=== PATIENT | male | born 1945 ===

== ENCOUNTER 2021-05-06 10:33 | Outpatient (REF) | payer MEDICARE, SELFPAY ==
[2021-05-06 10:45] LABS: MANUAL DIFF FLAG NO
[2021-05-06 11:14] LABS: Basophils Absolute Auto 0.1 X10*3/uL (0.0-0.2); Basophils Percent Auto 1.6 % (0-2); Eosinophils Absolute Auto 0.3 X10*3/uL (0.0-0.4); Eosinophils Percent Auto 3.9 % (0-4); Hematocrit 35.5 % (42-52); Hemoglobin 12.2 g/dl (14.0-18.0); Imm Gran Abs Auto 0.03 X10*3/uL (0.00-0.03); Imm Gran Pct Auto 0.4 % (0.0-0.4); Lymphocytes Absolute Auto 1.4 X10*3/uL (1.2-4.9); Lymphocytes Percent Auto 17.2 % (20-40); Mean Corpuscular HGB Conc 34.4 g/dl (31.0-36.0); Mean Corpuscular Hemoglobin 34.3 pg (27.0-33.0); Mean Corpuscular Volume 99.7 fL (80-98); Mean Platelet Volume 11.3 fL (9.4-12.4); Monocytes Absolute Auto 0.7 X10*3/uL (0.1-1.2); Neutrophils Absolute Auto 5.4 X10*3/uL (2.0-8.3); Neutrophils Percent Auto 67.9 % (45-73); Platelet Count 214 X10*3/uL (160-400); Red Blood Count 3.56 X10*6/uL (4.60-5.80); White Blood Count 7.9 X10*3/uL (4.8-10.8)
[2021-05-06 11:52] LABS: Alanine Aminotransferase 10 U/L (0-40); Albumin Level 3.8 g/dL (3.5-5.0); Alkaline Phosphatase 90 U/L (39-117); Anion Gap 13 (12-20); Aspartate Amino Transferase 12 U/L (5-37); Bilirubin Total 0.3 mg/dL (0.0-1.0); Blood Urea Nitrogen 12 mg/dL (9-16); Carbon Dioxide 24 mmol/L (22-29); Chloride 109 mmol/L (96-108); Cholesterol 150 mg/dL; Estimated Glomerular Filt Rate > 60; Glucose Fasting 167 mg/dL (60-99); HDL Cholesterol 47 mg/dL; LDL Cholesterol Calculated 74 mg/dl; Sodium 142 mmol/L (135-145); Triglycerides 146 mg/dL
[2021-05-06 12:25] LABS: Creatinine Urine 93.73 mg/dL
[2021-05-06 12:40] LABS: Microalbum/Creatinine Ratio Ur 807.6 ug/mg cr
[2021-05-10 13:02] LABS: Vitamin D 25-OH, D2 <4 ng/mL; Vitamin D 25-OH, D3 36 ng/mL; Vitamin D 25-OH, Total 36 ng/mL (30-100)
== END 2021-05-06 10:34 | disposition home or self-care (01) ==
LOC: HO.LAB 10:33
PROVIDERS: PCP Internal Medicine; Visit Provider Internal Medicine
DX: D64.9 Anemia, unspecified (principal); M51.36 Other intervertebral disc degeneration, lumbar region; E11.9 Type 2 diabetes mellitus without complications; E78.5 Hyperlipidemia, unspecified; E55.9 Vitamin D deficiency, unspecified
CPT/HCPCS: 36415; 80053; 80061; 82043; 82306; 85025

== ENCOUNTER 2021-05-21 15:19 | Outpatient (REF) | payer MEDICARE, SELFPAY ==
--- NOTE | ~2021-05-21 | XR_ITS ---
EXAMINATION: XR CHEST CLINICAL INFORMATION: Dyspnea. COMPARISON: None TECHNIQUE: 2 views of the chest were obtained. FINDINGS: There is mild central pulmonary vascular prominence. Hazy opacity lung bases may be due to early pulmonary edema versus inflammatory/infectious etiology. No large pleural effusion. Heart size is normal. Cardiac mediastinal contours normal. Multilevel degenerative spondylosis of the spine. XR/XR chest 2V IMPRESSION: Mild central pulmonary vascular prominence. Hazy opacities lung bases due to early pulmonary edema versus inflammatory/infectious etiology.
== END 2021-05-21 15:20 | disposition home or self-care (01) ==
LOC: HO.XRAY 15:19
PROVIDERS: PCP Internal Medicine; Visit Provider Internal Medicine
DX: R06.09 Other forms of dyspnea (principal); U09.9 Post COVID-19 condition, unspecified; Z99.81 Dependence on supplemental oxygen
CPT/HCPCS: 71046; 99202

== ENCOUNTER → 2021-06-05 15:51 | Outpatient (BNVA) | payer MEDICARE, MEDICAID, SELFPAY | PROVIDERS: PCP Internal Medicine; Visit Provider Internal Medicine | DX: R06.09 Other forms of dyspnea (principal); U09.9 Post COVID-19 condition, unspecified; Z99.81 Dependence on supplemental oxygen | CPT/HCPCS: 99212 ==

== ENCOUNTER 2024-01-12 15:26 | Outpatient (AMB) | payer OTHER, SELFPAY ==
[2024-01-12 15:49] VITALS: BP 136/84; BMI 28.2
--- NOTE | 2024-01-12 15:49 | A.OFFPC_ITS ---
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 Required: No Accompanied by: Spouse/ Grand Child Allergies cortisone Adverse Reaction (Intermediate, Verified 01/12/24 16:14) Cough Medication List - Last Reconciled 01/12/24 by Gaby Tamayo MD Advair Diskus 250-50 mcg/dose (fluticasone propion-salmeterol) 1 inh inhalation BID NS amlodipine 10 mg PO DAILY 90 days aspirin 1 tab PO DAILY 90 days blood sugar diagnostic ([employer] Ultra Test strips) Use to check blood sugar once a day blood-glucose meter ([employer] Ultra2 Meter) As directed docusate sodium (Colace) 100 mg PO DAILY PRN dulaglutide (Trulicity) 0.75 mg (0.5 mL) subcut QWEEK 4 weeks gabapentin 300 mg PO BEDTIME 90 days glimepiride 4 mg PO DAILY 90 days glipizide 10 mg PO DAILY 90 days hydrochlorothiazide 50 mg PO DAILY 90 days lancets ([employer] Delica Lancets) Use to check blood sugars once a day levetiracetam 1,000 mg PO BID linagliptin (Tradjenta) 5 mg PO DAILY 90 days lisinopril 10 mg PO DAILY metformin 1,000 mg PO BID 90 days simvastatin 20 mg PO BEDTIME 90 days Tobacco use date assessed: 01/12/24 Fall risk assessment: No Falls in past year Last assessed Fall Risk: 01/12/24 Dental Screening Dental Screen Date: 01/12/24 Did you have a dental visit in the last 12 months?: No Did you have a dental problem in the last 6 months where you did not have access to dental care?: No Was dental information given to patient?: Patient has dentist HPI HPI Comments History of Present Illness Details This is a 78-year-old male with diabetes mellitus type 2, hypertension, pure hypercholesterolemia and seizures that comes today accompanied by and grandson for follow-up on his conditions. A1c within goal. Blood pressure stable. Lipid panel was order and his LDL goal should be less than 70. Has not had a seizure in over 6 months and I will refer him to Neurology. He complains of occasional resting tremors in both hands. He is awake, alert and oriented to time, person and place. [facility] Medical History (Updated 01/12/24 @ 20:11 by Gaby Tamayo MD) Seizures Microalbuminuria Post-COVID chronic dyspnea Oxygen dependent GERD (gastroesophageal reflux disease) Diabetes mellitus Lumbar degenerative disc disease Pure hypercholesterolemia Essential hypertension Surgical History S/P matrixectomy of toe History of cervical spinal surgery Family History Father No problems noted. Mother No problems noted. Social History Housing: Apartment Alcohol intake: never Patient Tobacco Use Status: Never used Tobacco e-Cigarette/Vaping Use: Never Used Second Hand Smoke Exposure: No service: No Current occupational status: retired and disabled Current occupational exposures/hazards: No Cognitive needs: No Hearing needs: No Vision needs: Yes Questionnaire PHQ-9 Over the last 2 weeks, how often have you been bothered by any of the following problems? 1. Little interest or pleasure in doing things: not at all 2. Feeling down, depressed, or hopeless: not at all 3. Trouble falling or staying asleep, or sleeping too much: not at all 4. Feeling tired or having little energy: not at all 5. Poor appetite or overeating: not at all 6. Feeling bad about yourself - or that you are a failure or have let yourself or your family down: not at all 7. Trouble concentrating on things, such as reading the newspaper or watching television: not at all 8. Moving or speaking so slowly that other people could have noticed. Or the opposite - being so fidgety or restless that you have been moving around a lot more than usual: not at all 9. Thoughts that you would be better off or of hurting yourself in some way: not at all Total score: 0 Depression Screening Interpretation: Negative Depression Screening Done: Yes 13833 - PHQ-9 Billing: Yes Source: Developed by Gary Franciset B.W. Cameron, Kunal Benavidez and colleagues, with an educational amalia from [employer]. Thrive Questionnaire Date Thrive assessed: 01/12/24 I am a: Patient What is your living situation today?: I have a steady place to live Within the past 12 months, did the food you bought not last and you didn't have the money to get more?: Never true Within the past 12 months, did you worry whether your food would run out before you got money to buy more?: Never true Do you have trouble paying for medicines?: No Do you have trouble getting transportation to medical appointments?: No Do you have trouble paying your heating and electricity bill?: No Do you have trouble taking care of your child, family member or friend?: No Do you have trouble with day-to-day activities such as bathing, preparing meals, shopping, managing finances, etc.?: Yes Are you currently unemployed and looking for a job?: No Are you interested in more education?: No Please select the resources that you would like help with: None Currently or been in a relationship where the following occur: no concerns reported THRIVE Score: 0 AUDIT C Alcohol Use Questionnaire (AUDIT-C) 1. How often do you have a drink containing alcohol?: Never Total Score: 0 ANUJ-7 AMB Questionnaire ANUJ-7 Date ANUJ - 7 assessed: 01/12/24 Feeling nervous, anxious, or on edge: 0 = Not at all Not being able to stop or control worryin = Not at all Worrying too much about different things: 0 = Not at all Trouble relaxin = Not at all Being so restless that it is hard to sit still: 0 = Not at all Becoming easily annoyed or irritable: 0 = Not at all Feeling afraid as if something awful might happen: 0 = Not at all Total ANUJ-7 score (0-4 normal; 5-9 mild; 10-14 moderate; 15-21 severe): 0 Source: Developed by Drs. Manuelito Calvert, Nora Barnes, Kunal Benavidez and colleagues, with an educational amalia from [employer]. ANUJ-7 Assessment Billing ANUJ-7 Assessment Tool: ANUJ-7 Assessment 10063 Review of Systems Const All systems reviewed & are unremarkable except as noted in HPI and below Card Denies chest pain at rest, Denies chest pain with activity, Denies edema, Denies irregular heart rhythm, Denies claudication, Denies dyspnea, Denies dyspnea on exertion, Denies orthopnea, Denies paroxysmal nocturnal dyspnea and Denies slow heart rate Resp Denies cough, Denies dyspnea and Denies dyspnea on exertion GI Denies abdominal pain, Denies change in bowel habits, Denies excessive flatus, Denies nausea and Denies vomiting Denies urinary hesitancy, Denies urinary incontinence and Denies urinary urgency Neuro Denies behavioral changes and Denies lack of coordination Psych Denies behavioral changes Physical exam (Primary Care) Vital Signs: Last Vital Signs BP 136/84 01/12/24 15:49 BMI result Body Mass Index 28.2 Tobacco/Smoking Status: Tobacco use Status Tobacco use date assessed 01/12/24 01/12/24 16:07 Patient Tobacco Use Status Never used Tobacco 01/12/24 15:54 e-Cigarette/Vaping Use Never Used 01/12/24 15:54 PHQ-9: PHQ-9 Score PHQ-9: Total score 0 01/12/24 16:54 Depression Screening Interpretation: Negative Thrive Assessment: Date of Thrive Assessment Date Thrive assessed 01/12/24 01/12/24 16:07 Currently or been in a relationship where the following occur: no concerns reported Resp Effort & Inspection: normal respiratory effort Auscultation: clear to auscultation bilaterally Cardio Jugular venous distension: no JVD Rate: regular rate Rhythm: regular rhythm Heart sounds: S1 normal heart sound present and S2 normal heart sound present Extrem General: Yes full ROM Results AMB Hemoglobin A1c AMB Hemoglobin A1c 6.7 % Last Edit by FATEMEH Mancuso on 01/12/24 16:1 2 Results Reviewed Results Reviewed: Laboratory Last Values Hgb A1c (Clinic) 6.7 % (4.0-6.0) H 01/12/24 16:07 Assessment and Plan Assessment & Plan (1) Diabetes mellitus: Code(s): E11.9 - Type 2 diabetes mellitus without complications Qualifiers: Diabetes mellitus type: type 2 Diabetes mellitus intermediate frame tender insulin use: without intermediate frame tender use Diabetes mellitus complication status: without comp lication Qualified Code(s): E11.9 - Type 2 diabetes mellitus without complications Plan: Continue Trulicity, glimepiride and glipizide. A1c goal is equal or less than 7%. (2) Essential hypertension: Code(s): I10 - Essential (primary) hypertension Plan: Continue hydrochlorothiazide and lisinopril. Blood pressure goal is equal or less than 130/80. (3) Pure hypercholesterolemia: Code(s): E78.00 - Pure hypercholesterolemia, unspecified Plan: Continue statins. LDL goal is less than 70. (4) Seizures: Code(s): R56.9 - Unspecified convulsions Plan: Continue Keppra. Referred to neurology. Orders: Orders AMB Hemoglobin A1c Today E11.9 - Type 2 diabetes mellitus without complications Vitamin D 25-OH Total Today E55.9 - Vitamin D deficiency, unspecified Comprehensive [place]. Panel Fast Today R56.9 - Unspecified convulsions Levetiracetam Keppra Today R56.9 - Unspecified convulsions IRON PROFILE Today D64.9 - Anemia, unspecified Vitamin B12 and Folate Today E53.8 - Deficiency of other specified B group vitamins Lipid Panel Today E78.5 - Hyperlipidemia, unspecified Microalbumin, Random (w Creat) Today E11.9 - Type 2 diabetes mellitus without complications Complete Blood Count Auto Diff Today D64.9 - Anemia, unspecified Referrals Ophthalmology Referral E11.9 - Type 2 diabetes mellitus without complications Neurology Referral R56.9 - Unspecified convulsions Coding Level of Care Code Est Pt Level 4 (28460) Complex EM visit Add On G2211 Diagnoses Type 2 diabetes mellitus without complication, without long-term current use of insulin E11.9 Diabetes mellitus type: type 2 Diabetes mellitus intermediate frame tender insulin use: without intermediate frame tender use Diabetes mellitus complication status: without complication Essential hypertension I10 Pure hypercholesterolemia E78.00 Seizures R56.9 Additional Codes ANUJ-7 Assessment Billing - ANUJ-7 Assessment Tool: ANUJ-7 Assessment 31128 ([id number]) Time Spent (min) 24
== END 2024-01-12 16:39 | disposition home or self-care (01) ==
PROVIDERS: PCP Internal Medicine; Visit Provider Internal Medicine
DX: E11.9 Type 2 diabetes mellitus without complications (principal); R56.9 Unspecified convulsions; I10 Essential (primary) hypertension; E78.00 Pure hypercholesterolemia, unspecified
CPT/HCPCS: 83036; 99214; G2211

== ENCOUNTER 2024-01-18 08:30 | Outpatient (REF) | payer OTHER, SELFPAY ==
[2024-01-18 08:51] LABS: MANUAL DIFF FLAG NO
[2024-01-18 09:05] LABS: Basophils Absolute Auto 0.1 X10*3/uL (0.0-0.2); Basophils Percent Auto 1.1 % (0-2); Eosinophils Absolute Auto 0.2 X10*3/uL (0.0-0.4); Eosinophils Percent Auto 2.6 % (0-4); Hematocrit 39.9 % (42.0-52.0); Hemoglobin 14.3 g/dl (14.0-18.0); Imm Gran Abs Auto 0.03 X10*3/uL (0.00-0.03); Imm Gran Pct Auto 0.3 % (0.0-0.4); Lymphocytes Absolute Auto 1.4 X10*3/uL (1.2-4.9); Lymphocytes Percent Auto 15.6 % (20-40); Mean Corpuscular HGB Conc 35.8 g/dl (31.0-36.0); Mean Corpuscular Volume 97.6 fL (80.0-98.0); Mean Platelet Volume 11.8 fL (9.4-12.4); Monocytes Absolute Auto 0.6 X10*3/uL (0.1-1.2); Monocytes Percent Auto 6.2 % (2-11); Neutrophils Absolute Auto 6.8 x10*3/uL (2.0-8.3); Neutrophils Percent Auto 74.2 % (45-73); Platelet Count 202 X10*3/uL (160-400); Red Blood Count 4.09 X10*6/uL (4.60-5.80); Red Cell Distribution Width 12.5 % (11.0-16.0); White Blood Count 9.2 X10*3/uL (4.8-10.8)
[2024-01-18 09:48] LABS: Alanine Aminotransferase 17 U/L (0-40); Albumin Level 3.5 g/dL (3.5-5.0); Alkaline Phosphatase 106 U/L (39-117); Anion Gap 14 (12-20); Aspartate Amino Transferase 22 U/L (5-37); Bilirubin Total 0.4 mg/dL (0.0-1.0); Blood Urea Nitrogen 15 mg/dL (9-16); Calcium 9.3 mg/dL (8.4-10.2); Carbon Dioxide 26 mmol/L (22-29); Chloride 107 mmol/L (96-108); Cholesterol 223 mg/dL (<200); Estimated Glomerular Filt Rate 39; Glucose Fasting 204 mg/dL (60-99); HDL Cholesterol 52 mg/dL (>40); Iron 86 mcg/dL (45-160); LDL Cholesterol Calculated 138 mg/dL (<100); Percent Iron Saturation 38 % (15-50); Potassium 3.9 mmol/L (3.3-5.1); Sodium 143 mmol/L (135-145); Total Iron Binding Capacity 228 mcg/dL (228-428); Total Protein 7.2 g/dL (6.5-8.0); Triglycerides 169 mg/dL (<150); Unsaturated Iron Binding 142 ug/dL
[2024-01-18 09:57] LABS: Vitamin D 25-OH Total 21.7 ng/mL (>30)
[2024-01-18 12:04] LABS: Folate 12.5 ng/mL (> or = 4.0); Vitamin B12 600 pg/mL (200-900)
[2024-01-20 19:28] LABS: Levetiracetam Keppra <2.0 mcg/mL (6.0-46.0)
== END 2024-01-18 08:31 | disposition home or self-care (01) ==
LOC: HO.LAB 08:30
PROVIDERS: PCP Internal Medicine; Visit Provider Internal Medicine
DX: D64.9 Anemia, unspecified (principal); E55.9 Vitamin D deficiency, unspecified; R56.9 Unspecified convulsions; E78.5 Hyperlipidemia, unspecified; E53.8 Deficiency of other specified B group vitamins
CPT/HCPCS: 36415; 80053; 80061; 80177; 82306; 82607; 82746; 83540; 85025

== ENCOUNTER 2024-01-19 11:41 | Outpatient (REF) | payer OTHER, SELFPAY ==
[2024-01-19 12:48] LABS: Creatinine Urine 42.85 mg/dL
[2024-01-19 12:54] LABS: Microalbum/Creatinine Ratio Ur 4667.4 ug/mg cr (<30); Microalbumin Urine > 2000.0 mg/L
== END 2024-01-19 11:42 | disposition home or self-care (01) ==
LOC: HO.LNP 11:41
PROVIDERS: Visit Provider Internal Medicine
DX: E11.9 Type 2 diabetes mellitus without complications (principal)
CPT/HCPCS: 82043; 82570

== ENCOUNTER 2024-03-17 17:00 | Outpatient (AMB) | payer OTHER, SELFPAY ==
--- NOTE | 2024-03-17 17:03 | MHC.PC.OV ---
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 Required: No Accompanied by: Self / Same As Patient Allergies cortisone Adverse Reaction (Intermediate, Verified 03/17/24 17:26) Cough Medication List - Last Reconciled 03/17/24 by Gaby Tamayo MD Advair Diskus 250-50 mcg/dose (fluticasone propion-salmeterol) 1 inh inhalation BID NS amlodipine 10 mg PO DAILY 90 days aspirin 1 tab PO DAILY 90 days blood pressure test kit-large ([employer] Blood Pressure Monitor kit) As directed blood sugar diagnostic ([employer] Ultra Test strips) Use to check blood sugar once a day blood-glucose meter ([employer] Ultra2 Meter) As directed cholecalciferol (vitamin D3) 25 mcg PO DAILY 90 days docusate sodium (Colace) 100 mg PO DAILY PRN dulaglutide (Trulicity) 0.75 mg (0.5 mL) subcut QWEEK 4 weeks gabapentin 300 mg PO BEDTIME 90 days glimepiride 4 mg PO DAILY 90 days glipizide 10 mg PO DAILY 90 days hydrochlorothiazide 50 mg PO DAILY 90 days lancets ([employer] Delica Lancets) Use to check blood sugars once a day levetiracetam 1,000 mg (2 x 500 mg) PO BID 30 days linagliptin (Tradjenta) 5 mg PO DAILY 90 days lisinopril 20 mg PO DAILY 90 days metformin 1,000 mg PO BID 90 days simvastatin 40 mg PO BEDTIME 90 days [wheelchair As directed] Tobacco use date assessed: 01/12/24 Fall risk assessment: No Falls in past year Last assessed Fall Risk: 03/17/24 Dental Screening Dental Screen Date: 01/12/24 HPI HPI Comments History of Present Illness Details This is a 78-year-old male with diabetes mellitus type 2, hypertension, seizures and pure hypercholesterolemia that comes today for follow-up on his conditions. Last A1c was within goal. Blood pressure elevated and I will increase lisinopril from 20 mg to 30 mg. Has not had a seizure in over 3 months. Last LDL was not on goal and dietary changes were advised. He is alone and seems confused about his medications. Someone else gives the medication to him. Denies any chest pain or shortness on breath. [facility] Medical History (Updated 01/12/24 @ 20:11 by Gaby Tamayo MD) Seizures Microalbuminuria Post-COVID chronic dyspnea Oxygen dependent GERD (gastroesophageal reflux disease) Diabetes mellitus Lumbar degenerative disc disease Pure hypercholesterolemia Essential hypertension Surgical History S/P matrixectomy of toe History of cervical spinal surgery Family History Father No problems noted. Mother No problems noted. Social History Housing: Apartment Alcohol intake: never Patient Tobacco Use Status: Never used Tobacco e-Cigarette/Vaping Use: Never Used Second Hand Smoke Exposure: No service: No Current occupational status: retired and disabled Current occupational exposures/hazards: No Cognitive needs: No Hearing needs: No Vision needs: Yes Questionnaire Thrive Questionnaire Date Thrive assessed: 01/12/24 ANUJ-7 AMB Questionnaire ANUJ-7 Date ANUJ - 7 assessed: 01/12/24 Source: Developed by Drs. Manuelito Calvert, Nora Barnes, Kunal Benavidez and colleagues, with an educational amalia from [employer]. Review of Systems Const All systems reviewed & are unremarkable except as noted in HPI and below Card Denies chest pain at rest, Denies chest pain with activity, Denies edema, Denies irregular heart rhythm, Denies claudication, Denies dyspnea, Denies dyspnea on exertion, Denies orthopnea, Denies paroxysmal nocturnal dyspnea and Denies slow heart rate Resp Denies cough, Denies dyspnea and Denies dyspnea on exertion GI Denies abdominal pain, Denies change in bowel habits, Denies excessive flatus, Denies nausea and Denies vomiting Denies urinary hesitancy, Denies urinary incontinence and Denies urinary urgency Musc Denies atrophy, Denies deformity and Denies limited range of motion Skin/Breast Denies bleeding lesions, Denies changing lesions and Denies rash Physical exam (Primary Care) Vital Signs: Last Vital Signs BP 160/82 H 03/17/24 17:04 BMI result Body Mass Index 28.2 Tobacco/Smoking Status: Tobacco use Status Tobacco use date assessed 01/12/24 03/17/24 17:06 Patient Tobacco Use Status Never used Tobacco 03/17/24 17:06 e-Cigarette/Vaping Use Never Used 03/17/24 17:06 Thrive Assessment: Date of Thrive Assessment Date Thrive assessed 01/12/24 03/17/24 17:06 Resp Effort & Inspection: normal respiratory effort Auscultation: clear to auscultation bilaterally Cardio Jugular venous distension: no JVD Rate: regular rate Rhythm: regular rhythm Heart sounds: S1 normal heart sound present and S2 normal heart sound present Extrem General: Yes full ROM Assessment and Plan Assessment & Plan (1) Seizures: Code(s): R56.9 - Unspecified convulsions Plan: Continue Keppra. Follow-up with Neurology. 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 A1c goal is equal or less than 7%. Continue Trulicity. (3) Essential hypertension: Code(s): I10 - Essential (primary) hypertension Plan: Continue amlodipine. Increase lisinopril. Blood pressure goal is equal or less than 130/80. (4) Pure hypercholesterolemia: Code(s): E78.00 - Pure hypercholesterolemia, unspecified Plan: Continue statins. Start diet and exercise. LDL goal is less than 70. 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
[2024-03-17 17:04] VITALS: BP 160/82; BMI 28.2
[2024-03-18 10:23] VITALS: BP 160/80
== END 2024-03-17 17:32 | disposition home or self-care (01) ==
PROVIDERS: PCP Internal Medicine; Visit Provider Internal Medicine
DX: R56.9 Unspecified convulsions (principal); E11.9 Type 2 diabetes mellitus without complications; I10 Essential (primary) hypertension; E78.00 Pure hypercholesterolemia, unspecified
CPT/HCPCS: 99214; G2211

== ENCOUNTER → 2024-04-07 15:01 | Outpatient (BNVA) | payer OTHER, SELFPAY | PROVIDERS: PCP Internal Medicine ==

== ENCOUNTER → 2024-05-05 15:19 | Outpatient (BNVA) | payer OTHER, SELFPAY | PROVIDERS: PCP Internal Medicine ==

== ENCOUNTER 2024-05-31 15:06 | Outpatient (AMB) | payer OTHER, SELFPAY ==
--- NOTE | 2024-05-31 15:21 | MHC.PC.OV ---
Vital Signs 05/31/24 15:22 Height 5 ft 7 in Weight 185 lb BMI 29.0 BP 164/90 H Blood Pressure Location Lt brachial Position Sitting Intake Visit Reasons: pe Intake Note: Patient here for a physical exam Optic Fibre Drawer Required: No Accompanied by: Self / Same As Patient Allergies cortisone Adverse Reaction (Intermediate, Verified 05/31/24 15:25) Cough Medication List - Last Reconciled 05/31/24 by Gaby Tamayo MD Advair Diskus 250-50 mcg/dose (fluticasone propion-salmeterol) 1 inh inhalation BID NS amlodipine 10 mg PO DAILY 90 days aspirin 1 tab PO DAILY 90 days blood pressure test kit-large (Advocate Blood Pressure Monitor kit) As directed blood sugar diagnostic (N[employer]such Ultra Test strips) Use to check blood sugar once a day blood-glucose meter ([employer]such Ultra2 Meter) As directed chlorthalidone 50 mg PO DAILY 90 days cholecalciferol (vitamin D3) 25 mcg PO DAILY 90 days docusate sodium (Colace) 100 mg PO DAILY PRN dulaglutide (Trulicity) 0.75 mg (0.5 mL) subcut QWEEK 4 weeks fluticasone propion-salmeterol 45-21 mcg/actuation (Advair HFA) 2 puffs inhalation BID 30 days gabapentin 300 mg PO BEDTIME 90 days glimepiride 4 mg PO DAILY 90 days glipizide 10 mg PO DAILY 90 days lancets ([employer]os [employer]Touch Delica Lancets) Use to check blood sugars once a day levetiracetam 1,000 mg (2 x 500 mg) PO BID 30 days linagliptin (Tradjenta) 5 mg PO DAILY 90 days lisinopril 40 mg PO DAILY 90 days metformin 1,000 mg PO BID 90 days simvastatin 40 mg PO BEDTIME 90 days [wheelchair As directed] Tobacco use date assessed: 01/12/24 Fall risk assessment: No Falls in past year Last assessed Fall Risk: 05/31/24 Dental Screening Dental Screen Date: 05/31/24 Did you have a dental visit in the last 12 months?: No Did you have a dental problem in the last 6 months where you did not have access to dental care?: No Was dental information given to patient?: Patient has dentist HPI HPI Comments History of Present Illness Details This is a 78-year-old male with seizures and diabetes mellitus type 2 on long-term current use of insulin that comes for his physical exam. A1c within goal. Needs diabetic eye exam. Has not had a seizure in over 3 months as per patient. Complains of erectile dysfunction and would like Viagra. Blood pressure elevated and will be recheck in 3 weeks by nurse navigator. He said he took all his medications today. [facility] Medical History (Updated 05/31/24 @ 15:54 by Gaby Tamayo MD) Seizures Microalbuminuria Post-COVID chronic dyspnea Oxygen dependent GERD (gastroesophageal reflux disease) Diabetes mellitus Lumbar degenerative disc disease Pure hypercholesterolemia Essential hypertension Surgical History S/P matrixectomy of toe History of cervical spinal surgery Family History (Updated 05/31/24 @ 15:31 by Gaby Tamayo MD) Father No problems noted. Mother No problems noted. Social History Housing: Apartment Alcohol intake: never Patient Tobacco Use Status: Never used Tobacco e-Cigarette/Vaping Use: Never Used Second Hand Smoke Exposure: No service: No Current occupational status: retired and disabled Current occupational exposures/hazards: No Cognitive needs: No Hearing needs: No Vision needs: Yes Questionnaire Thrive Questionnaire Date Thrive assessed: 01/12/24 ANUJ-7 AMB Questionnaire ANUJ-7 Date ANUJ - 7 assessed: 01/12/24 Source: Developed by Drs. Manuelito Calvert, Nora Barnes, Kunal Benavidez and colleagues, with an educational amalia from [employer]. Review of Systems Const All systems reviewed & are unremarkable except as noted in HPI and below Card Denies chest pain at rest, Denies chest pain with activity, Denies edema, Denies irregular heart rhythm, Denies claudication, Denies dyspnea, Denies dyspnea on exertion, Denies orthopnea, Denies paroxysmal nocturnal dyspnea and Denies slow heart rate Resp Denies cough, Denies dyspnea and Denies dyspnea on exertion Reports erectile dysfunction Neuro Denies lack of coordination Physical exam (Primary Care) Vital Signs: Last Vital Signs BP 164/90 H 05/31/24 15:22 Care Plan Goal for BP management: Advised low-salt diet. Blood pressure goal is equal or less than 130/80. Next steps: Recheck blood pressure with nurse navigator in 3 weeks. BMI result Body Mass Index 29.0 BMI Assessment/Plan discussion: High BMI High, discussed plan: lifestyle, weight reduction, dietary and physical activity Tobacco/Smoking Status: Tobacco use Status Tobacco use date assessed 01/12/24 05/31/24 15:25 Patient Tobacco Use Status Never used Tobacco 05/31/24 15:25 e-Cigarette/Vaping Use Never Used 05/31/24 15:25 Thrive Assessment: Date of Thrive Assessment Date Thrive assessed 01/12/24 05/31/24 15:25 HENMT Head: Yes normal to inspection, Yes normocephalic and Yes atraumatic Ears: external ears normal Eyes General: appearance normal, both eyes and all related structures Eyelids: Yes eyelids normal Conjunctivae: conjunctivae normal Neck Neck: Yes normal visual inspection and Yes supple Resp Effort & Inspection: normal respiratory effort Auscultation: clear to auscultation bilaterally Cardio Jugular venous distension: no JVD Rate: regular rate Rhythm: regular rhythm Heart sounds: S1 normal heart sound present and S2 normal heart sound present GI Inspection: Yes normal to inspection Palpation (GI): Soft to palpation and nontender Auscultation: normal bowel sounds Skin General skin exam: no rashes or lesions noted Neuro General: no focal motor deficits Extrem General: Yes full ROM Psych Appearance: grossly normal Office Procedures Flu Questionnaire Does the patient have a severe egg allergy?: No Does the patient have severe life threatening allergies?: No Does the patient have a fever or illness today?: No Has the patient ever had Guillain-[place] Syndrome?: No Has the patient ever had any past reaction to a flu shot?: No Results AMB Hemoglobin A1c AMB Hemoglobin A1c 5.4 % Last Edit by FATEMEH Mancuso on 05/31/24 15:31 Immunizations Fluarix Triv [id number] (PF) 45 mcg (15 mcg x 3)/0.5 mL IM syringe Performing Provider: Gaby Tamayo MD [facility] Administered by: FATEMEH Mancuso on 05/31/24 15:56 Dose Route Admin Location Dispensed Lot Number Expiration Date [facility] Supervisor [employer] 0.5 mL IM Left Deltoid 0.5 mL [id number] 06/30/25 [id number] GLAXZones VIS Given Date VIS Provided VIS Publication Date 05/31/24 Single Vaccine 21 Eligibility Eligibility Date Funding Source Not VFC Eligible 05/31/24 Private pneumoc 20-ivan conj-dip cr(PF) 0.5 mL IM syringe Performing Provider: Gaby Tamayo MD Performing [facility] Administered by: FATEMEH Mancuso on 05/31/24 15:56 Dose Route Admin Location Dispensed Lot Number Expiration Date NDC Supervisor [employer] 0.5 mL IM Right Deltoid 0.5 mL [id number] 06/19/25 [id number] WYETH/PFIZER VIS Given Date VIS Provided VIS Publication Date 05/31/24 Single Vaccine 21 Eligibility Eligibility Date Funding Source Not VF Eligible 05/31/24 Private Results Reviewed Results Reviewed: Laboratory Last Values Hgb A1c (Clinic) 5.4 % (4.0-6.0) 05/31/24 15:17 Coding Level of Care Code Est Pt Level 3 (10957) Est Pt Prev Care >65y(71651) Diagnoses Physical exam Z00.00 Seizures R56.9 Type 2 diabetes mellitus without complication, without long-term current use of insulin E11.9 Diabetes mellitus type: type 2 Diabetes mellitus supervisor long goods insulin use: without nursing home use Diabetes mellitus complication status: without complication Erectile dysfunction, unspecified erectile dysfunction type N52.9 Erectile dysfunction type: unspecified Time Spent (min) 35 Assessment & Plan Assessment & Plan (1) Physical exam: Code(s): Z00.00 - Encounter for general adult medical examination without abnormal findings Category: Medical Plan: Repeat in a year. (2) Seizures: Code(s): R56.9 - Unspecified convulsions Category: Medical Plan: Continue Keppra. (3) Diabetes mellitus: Code(s): E11.9 - Type 2 diabetes mellitus without complications Category: Medical Qualifiers: Diabetes mellitus type: type 2 Diabetes mellitus nursing home insulin use: without supervisor long goods use Diabetes mellitus complication status: without complication Qualified Code(s): E11.9 - Type 2 diabetes mellitus without complications Plan: Continue insulin. A1c goal is equal or less than 7%. Referred to Ophthalmology for diabetic eye exam. (4) Erectile dysfunction: Code(s): N52.9 - Male erectile dysfunction, unspecified Category: Medical Qualifiers: Erectile dysfunction type: unspecified Qualified Code(s): N52.9 - Male erectile dysfunction, unspecified Plan: Start Viagra as needed. Orders: Orders Influenza [id number] Immunization Today Z23 - Encounter for immunization AMB Hemoglobin A1c Today E11.9 - Type 2 diabetes mellitus without complications Lipid Panel 4 Months E78.5 - Hyperlipidemia, unspecified Comprehensive [place]. Panel Fast 4 Months R56.9 - Unspecified convulsions Microalbumin, Random (w Creat) 4 Months R80.9 - Proteinuria, unspecified Vitamin D 25-OH Total 4 Months E55.9 - Vitamin D deficiency, unspecified Levetiracetam Keppra 4 Months R56.9 - Unspecified convulsions Pneumococcal 20 Immunization Today Z23 - Encounter for immunization Referrals Ophthalmology Referral E11.9 - Type 2 diabetes mellitus without complications Medications: New Fluarix Triv [id number] (PF) (flu vacc [id number] 6mos up(PF)) 0.5 mL IM ONCE 0.5 mL 0RF NS Z23 - Encounter for immunization sildenafil administer 30 minutes to 4 hours before activity 50 mg PO DAILY 30 days PRN 7 tabs 0RF sexual activity N52.9 - Male erectile dysfunction, unspecified pneumoc 20-ivan conj-dip cr(PF) 0.5 mL IM ONCE 0.5 mL 0RF Z23 - Encounter for immunization
[2024-05-31 15:22] VITALS: BP 164/90; BMI 29.0
== END 2024-05-31 15:51 | disposition home or self-care (01) ==
PROVIDERS: PCP Internal Medicine; Visit Provider Internal Medicine
DX: Z00.00 Encounter for general adult medical examination without abnormal findings (principal); R56.9 Unspecified convulsions; E11.9 Type 2 diabetes mellitus without complications; N52.9 Male erectile dysfunction, unspecified; Z23 Encounter for immunization

== ENCOUNTER → 2024-05-31 15:06 | Outpatient (BNVA) | payer OTHER, SELFPAY | PROVIDERS: PCP Internal Medicine; Visit Provider Internal Medicine | DX: Z00.00 Encounter for general adult medical examination without abnormal findings (principal); Z23 Encounter for immunization; E11.9 Type 2 diabetes mellitus without complications; N52.9 Male erectile dysfunction, unspecified | CPT/HCPCS: 83036; 90471; 90656; 90677; 99212; 99397 ==

== ENCOUNTER → 2024-06-23 14:05 | Outpatient (BNVA) | payer OTHER, SELFPAY | PROVIDERS: PCP Internal Medicine ==

== ENCOUNTER 2024-10-14 15:01 | Outpatient (AMB) | payer OTHER, SELFPAY ==
--- NOTE | 2024-10-14 15:04 | A.OFFVIS_ITS ---
Intake Visit Reasons: Erectile dysfuntion Intake Note: New patient presents today for initial visit for erectile dysfunction Urology Medication:none Blood Thinner:Aspirin Antibiotic Allergies:none Insulation Nozzleman Required: Yes Insulation Nozzleman Name: [id number]--Poaxqyh Information Interpreted: non-clinical & clinical Allergies cortisone Adverse Reaction (Intermediate, Verified 10/14/24 15:06) Cough HPI Comments Details: 10/14/24--History of Present Illness The patient is a 79-year-old male presenting with erectile dysfunction, which has been a persistent issue for nearly three years. Previous attempts to manage this condition included the use of Viagra three months ago, which was not effective in improving his erectile function. The patient's extensive medication regimen includes treatment for diabetes mellitus, which he continues to manage concurrently with his erectile dysfunction. He reports no improvement in his erectile function despite medication trials. We discussed the management of the patient's erectile dysfunction, emphasizing the use of a daily low dose of Cialis (tadalafil) at 5 mg, which may take up to three months to become effective. We discussed introducing a higher dose of 20 mg tadalafil for use before intercourse, not to exceed twice weekly, to enhance erectile function. Alternative treatment options were discussed, including injections and surgical interventions such as a penile pump if medication remains ineffective. Urinary Symptoms Review - Nocturia: Wakes up once per night to urinate. - Does not require straining to urinate. - No reported urinary incontinence or urgency. [facility] Medical History Seizures Microalbuminuria Post-COVID chronic dyspnea Oxygen dependent GERD (gastroesophageal reflux disease) Diabetes mellitus Lumbar degenerative disc disease Pure hypercholesterolemia Essential hypertension Surgical History S/P matrixectomy of toe History of cervical spinal surgery Family History Father No problems noted. Mother No problems noted. Social History Housing: Apartment Alcohol intake: never Patient Tobacco Use Status: Never used Tobacco e-Cigarette/Vaping Use: Never Used Second Hand Smoke Exposure: No service: No Current occupational status: retired and disabled Current occupational exposures/hazards: No Cognitive needs: No Hearing needs: No Vision needs: Yes Review of Systems Const All systems reviewed & are unremarkable except as noted in HPI and below Reports no additional complaints Eyes Reports no additional complaints ENT Reports no additional complaints Card Reports no additional complaints Resp Reports no additional complaints GI Reports no additional complaints Reports as per HPI Musc Reports no additional complaints Skin/Breast Reports system reviewed and no additional complaints, except as documented Neuro Reports no additional complaints Psych Reports no additional complaints Endo Reports no additional complaints Jorge Alberto/Lymph Reports no additional complaints Aller/Immun Reports no additional complaints Physical Exam Const General: healthy appearing, no acute distress and well developed Orientation/consciousness: patient oriented x3 HEENT Head: Yes normocephalic and Yes atraumatic Eyes Conjunctivae: conjunctivae normal Neck Neck: Yes normal visual inspection Chest Chest palpation & inspection: normal inspection of the chest Resp Effort & Inspection: normal respiratory effort GI Inspection: Yes normal to inspection Neuro General: patient oriented x3 Psych Appearance: grossly normal Affect: normal affect Assessment & Plan Assessment & Plan (1) Erectile dysfunction: Code(s): N52.9 - Male erectile dysfunction, unspecified Category: Medical Qualifiers: Erectile dysfunction type: unspecified Qualified Code(s): N52.9 - Male erectile dysfunction, unspecified (2) BPH (benign prostatic hyperplasia): Code(s): N40.0 - Benign prostatic hyperplasia without lower urinary tract symptoms Category: Medical Plan 5 mg tadalafil once daily as prescribed. Take an additional 20 mg tadalafil before intercourse, no more than twice a week. Patient Instructions: The patient had an opportunity to ask questions regarding treatment plan. The patient expressed understanding and agreement with the above treatment plan. The patient is aware they should contact our office by phone for worsening of their current condition or the appearance of new symptoms. Compliance is e ncouraged with any medications and followup testing that is ordered. It is a privilege to be allowed the opportunity to participate in the urologic care of your patient. If you have any questions or concerns regarding treatment for the above conditions please do not hesitate to contact me. The office telephone contact is [phone]. This note is constructed in part using voice recognition software. While every effort has been made to ensure accuracy underground foreman errors may have been included. Yours sincerely, Glory Castillo MD Scribe Plan - Not visible on output: Patient was informed and verbally consented to the use of an ambient scribe for clinic note documentation during this visit. Coding Level of Care Code New Pt Level 4 (20354) Diagnoses Erectile dysfunction, unspecified erectile dysfunction type N52.9 Erectile dysfunction type: unspecified BPH (benign prostatic hyperplasia) N40.0
== END 2024-10-14 15:56 | disposition home or self-care (01) ==
LOC: HO.HUSH 15:01
PROVIDERS: PCP Internal Medicine; Visit Provider Urology
DX: N52.9 Male erectile dysfunction, unspecified (principal); N40.0 Benign prostatic hyperplasia without lower urinary tract symptoms
CPT/HCPCS: 99204

== ENCOUNTER → 2024-10-14 15:01 | Outpatient (BNVA) | payer OTHER, SELFPAY | PROVIDERS: PCP Internal Medicine; Visit Provider Urology | DX: N40.0 Benign prostatic hyperplasia without lower urinary tract symptoms (principal); N52.9 Male erectile dysfunction, unspecified; E11.9 Type 2 diabetes mellitus without complications; Z79.899 Other long term (current) drug therapy | CPT/HCPCS: 99202 ==

== ENCOUNTER 2025-02-07 10:53 | Outpatient (REF) | payer OTHER, SELFPAY ==
--- OUTSIDE RECORDS SUMMARY | 2024-01-07 10:17 | XMS_ITS | Continuity of Care Document ---
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 Metal Drill Operator Name Role Phone Hollis BECKER, Martha [...] use as directed - Active DELIVER TO [facility] [address] Trulicity 1.5 mg/0.5 [...] Active DELIVER TO HOME FreeStyle Ethan 2 Koppel use as directed - Active PLEASE DELIVER TO HOME Prevnar 20 (PF) 0.5 mL intramuscular syringe inject 0.5 milliliter by intramuscular route once 0.50 milliliter - Active Please deliver to site in [place] Advance Directives Directive Yes / No Effective Date File Name No Information Encounters Encounter Description Practice Location Reason(s) For Visit Diagnoses Date Provider [facility], [address] [place] [address], [place], [place], [id number], [place] tel:[phone] [place] No Information 4 [facility]. [address], [place], [place], [id number], [place]. tel:[phone] [facility], [address], [place], [place], [id number], [place] tel:[phone] [place] No Information 4 [facility]. [address] [place], [place], [id number], [place]. tel:[phone] [facility], [address], [place], [place], [id number], [place] tel:[phone] [place] Acute Visit (chief complaint) Illness, unspecifiedLong toenail 4 [facility]. [address] [place], [place], [id number], [place]. tel:[phone] [facility], [address], [place], [place], [id number], [place] tel:[phone] [place] Encounter for [facility] adult medical examination without abnormal findings 4 [facility]. [address] [place], [place], [id number], [place]. tel:[phone] [facility], [address], [place], [place], [id number], [place] tel:[phone] [place] No Information 3 Bhagavatula Ujjwala. [address] [place], [place], [id number], [place]. tel:[phone] [facility], [address], [place], [place], [id number], [place] tel:[phone] [place] No Information 3 Bhagavatula Ujjwala. [address] [place], [place], [id number], [place]. tel:[phone] [facility], [address], [place], [place], [id number], [place] tel:[phone] [place] No Information 3 Bhagavatula Ujjwala. [address] [place], [place], [id number], [place]. tel:[phone] [facility], [address], [place], [place], [id number], [place] tel:[phone] [place] Encounter for rehabilitation evaluation 3 Ellie Nesbitt. [address], [place], [id number], [place]. tel:[phone] [facility], [address], [place], [place], [id number], [place] tel:[phone] [place] Type 2 diabetes mellitus with stage 3b chronic kidney disease, without long-term current use of insulinChronic kidney disease, stage 3b 3 Bhagavatula Ujjwala. [address] [place], [id number], [place]. tel:[phone] [facility], [address], [place], [place], [id number], [place] tel:[phone] [place] No Information 3 Bhagavatula Ujjwala. [address] [place], [id number], [place]. tel:[phone] [facility], [address], [place], [place], [id number], [place] tel:[phone] [place] No Information 3 Bhagavatula Ujjwala. [address], [id number], [place]. tel:[phone] [facility], [address], [place], [place], [id number], [place] tel:[phone] [place] Stage 3a chronic kid gifty disease (CKD)Type 2 diabetes mellitus with stage 3b chronic kidney disease, without long-term current use of insulinChronic kidney disease, stage 3b 3 Bhagavatula Ujjwala. [address] [facility] [address], [place], [place], [id number], [place]. tel:[phone] [facility], [address] [facility], [place], [place], [id number], [place] tel:[phone] [place] Encounter for rehabilitation evaluation Sep-2 3 Avni Correa. [address], [place], [id number], [place]. tel:[phone] [facility], [address] [facility], [place], [place], [id number], [place] tel:[phone] [place] Encounter for rehabilitation evaluation Sep-2 3 Bryce Wright. [address], [place], [id number], [place]. tel:[phone] [facility], [address] [facility], [place], [place], [address], [place] tel:[phone] [place] No Information Sep- 3 Bhagavatula Ujjwala. [address] [facility] [place], [address], [place]. tel:[phone] [facility], [address] [facility] [facility], [place], [place], [id number], [place] tel:[phone] [place] Semi-Annua l (chief complaint) Encounter for nutritional assessment Sep- [address] [facility], [place], [address]. tel:[phone] [facility], [address] [facility] [address] [facility], [place], [place], [id number], [place] tel:[phone] [place] Semi-Annua l (chief complaint) Primary snoringLung fibrosisPleural [...] kidney disease 3 Maddisonagaevelintula Ujjwala. [address] [place], [place], [id number], [place]. tel:[phone] [facility], [address], [place], [place], [id number], [place] tel:[phone] [place] No Information 3 Juankatie Robertsonn. [address] [place], [place], [id number], [place]. 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 [address] [facility] [place], [place], [id number], [place]. tel:[phone] [facility], [address], [place], [place], [id number], [place] tel:[phone] [place] Shortness of breath 3 Kj Childresswala. [address] [facility] [place], [address], [place]. tel:[phone] [facility], [address], [place], [place], [id number], [place] tel:[phone] [place] Fall (chief complaint) Leg pain, rightType 2 diabetes mellitus with stage 3a chronic kidney disease, without long-term current use of insulinChronic kidney disease, stage 3a 3 Maddisonagaevelintula Ulambertojwala. [address] [facility] [place], [id number], [place]. tel:[phone] [facility], [address], [place], [place], [address], [place] tel:[phone] [place] OV (chief complaint) Type 2 diabetes mellitus with stage 3a chronic kidney disease, unspecified whether skilled nursing insulin useChronic kidney disease, stage 3aLong-term (current) use of injectable non-insulin antidiabetic drugs 3 Konstantin Henderson. [address], [place], [place], [address], [place]. tel:[phone] [facility], [address], [place], [place], [address], [place] tel:[phone] [place] No Information 3 Konstantin Henderson. [address], [place], [place], [id number], [place]. tel:[phone] [facility], [address], [place], [place], [address], [place] tel:[phone] [place] No Information 3 Konstantin Henderson. [address], [place], [place], [id number], [place]. tel:[phone] [facility], [address], [place], [place], [id number], [place] tel:[phone] [place] Semi-Annua l (chief complaint) Primary snoringSlow transit [...] drugs 3 Kj Womack. [address], [place], [place], [id number], [place]. tel:[phone] [facility], [address], [place], [place], [id number], [place] tel:[phone] [place] Encounter for genera l adult medical examination without abnormal findings 3 Konstantin Henderson. [address], [place], [place], [id number], [place]. tel:[phone] [facility], [address] [facility], [place], [place], [id number], [place] tel:[phone] [place] OV (chief complaint) Hypertensive heart and kidney disease without heart failure and with stage 3a chronic kidney diseaseChronic kidney disease, stage 3a 2 Konstantin Henderson. [address] [facility] [place], [id number], [place]. tel:[phone] [facility], [address] [facility] [facility], [place], [place], [address], [place] tel:[phone] [place] OV (chief complaint) Hypertensive heart and kidney disease without heart failure and with stage 2 chronic kidney diseaseChronic kidney disease, stage 2 (mild)Type 2 diabetes mellitus with stage 2 chronic kidney disease, without long-term current use of insulinChronic pain of both kneesPain in left kneeOther chronic pain 2 Konstantin Henderson. [address] [place], [place], [address], [place]. tel:[phone] [facility], [address] [facility] [facility], [place], [place], [id number], [place] tel:[phone] [place] Encounter for genera l adult medical examination without abnormal findings 2 Janny Ellis. [address] [place], [place], [id number], [place]. tel:[phone] [facility], [address] [facility] [address] [facility], [place], [place], [address], [place] tel:[phone] [place] Encounter for nutritional assessmentDiabetic nutritional counseling completed 2 Isabel Lyons. [address], [place], [address], [place]. tel:[phone] [facility], [address] [facility], [place], [place], [address], [place] tel:[phone] [place] Encounter for rehabilitation evaluation 2 Pipo Hightower. [address] [place], [address]. tel:[phone] [facility], [address] [address], [place], [place], [address], [place] tel:[phone] [place] Encounter for rehabilitation evaluationOther chronic pain 2 Reece Patel. [address], [place], [address], [place]. tel:[phone] [facility], [address] [facility], [place], [place], [address], [place] tel:[phone] [place] PEE (chief complaint) Coronary artery calcification seen [...] general health examination 2 Juan Child. [address], [place], [id number], [place]. tel:[phone] [facility], [address] [address], [place], [place], [address], [place] tel:[phone] [place] Encounter for rehabilitation evaluation 2 Reecetheodore Patel. [address] [place], [place], [address], [place]. tel:[phone] Family History Family Member Type Diagnosis Age [...] Record Payers Payer name Insurance type Covered republican ID Authoriza tion(s) [facility] 16 [id number] [facility] 16 [id number] [facility] 16 [id number] [facility] 16 [id number] [facility] 16 [id number] Social History Type Description Quantity Date Captured Comments Sex Male Smoking Status No Information Chief Complaint And Reason For Visit No Information Plan Of Treatment Date Type Action Status Referral Ordered: Dentistry (related to Encounter for general health examination) ordered Referral Ordered: Referrals: Dentistry ordered Referral Ordered: Referrals: [facility] Location[place] [facility] ordered Referral Ordered: Referrals: Podiatry. Evaluate and treat Appointment date/timeframe: 05/04/2023 ordered Referral Ordered: Referrals: [facility] Appointment date/timeframe: 10/27/2022 ordered Referral Ordered: Referrals: Otolaryngology. Follow-up and treat Appointment date/timeframe: 08/25/2022 ordered Referral Referred To: [facility] Ordered: Referrals: Dentistry. [facility]. Evaluate and treat Appointment date/timeframe: 10/15/2022 ordered Referral [place] [facility] [place] Ordered: Referrals: Yard Demurrage Clerk. [facility] [place]. Evaluate and treat Appointment date/timeframe: 10/15/2022 ordered Referral Referred To: [facility] [place] Ordered: Referrals: [place]iatry. [facility] [place]. Evaluate and treat ordered Future Order: Radiology Order Jaqui uriostegui study, unattended ([id number]), Ordered on: Ordered History Of Present Illness Encounter Date Complaint History Of Prese nt Illness Acute Visit PPT is a 77 yr o ld male seen in the clinic with Oma Mosquera MA as spanish translator as PPT is Colombian speaking, seen for respiratory s/sx without cough, States his is coughing and he feels like he is coming down with something. Vitals stable not fever no cough lung sounds clear. 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 and that his toe nails are catching [...] Collective.NO falls documented per [facility] incident reporting SERVICES/CONSULTANTS:[facility] podiatryOPEN ORDERSHome sleep study - maylin still [...] LFTs normal A1c 5.56/8/23 WBC9.4 H/H 14.3/42 Mhi175 BNP 66 Folate 18.1 A1c 5.3 UDJ417/25/23 Zidpyyfy68 %sat42 YKMF896 Na135 K4.3 Mg2.4 Phos3.7 BUN22 Cr1.46 eGFR49 LFTs normal Alb/Cr ratio 985 Ca 8.9 Ionized Ca 5.2 TSH2.34 X19KU348 CBD370 HDL46 TA87519/ Na 140 K4.2 BUN20 Cr1.38 eGFR53 Ca9.511/ Na140 K4.1 BUN22 Cr1.46 eGFR50 Ca9.511/03/10 Na141 K4.2 BUN19 Cr1.37 eGFR53 AST19 ALT10 AP78 Ca9.3 Alb4.1 Tbili 0.4 HBV core Ab reactive, HBV surface Ab reactive, HCV ab non cbnlgexz23/13/22 WBC 11.8 H/H13.7/41.2 Adl327 Na142 K4.5 BUN17 Cr1 eGFR78 AST36 ALT63 [...] joined [facility] using januvia and glipizide last fcsqiqK2t was 8.8%Dc'd januvia and added Trulicity On [...] Collective.NO falls documented per SE incident reporting SERVICES/CONSULTANTS:[facility] [place] podiatryNO OPEN ORDERS OR OPEN DIAGNOSTICS NOTED.Ppt [...] few weeks last month. Per history in [facility], appears ppt had an admission last week [...] night and as needed for ambulation. Per [facility] records, he had COVID pneumonia and required [...] hernia , however per imaging found on [facility] records no documentation of a hernia [...] HCTZ for blood pressure.Labs reviewed. Labs today bvddyix51/27/22 Na 140 K4.2 BUN20 Cr1.38 eGFR53 Ca9.511/ Na140 K4.1 BUN22 Cr1.46 eGFR50 Ca9.511/03/10 Na141 K4.2 BUN19 Cr1.37 eGFR53 AST19 ALT10 AP78 Ca9.3 Alb4.1 Tbili 0.4 HBV core Ab reactive, HBV surface Ab reactive, HCV ab non pqqmuxac14/13/22 WBC 11.8 H/H13.7/41.2 Uhk727 Na142 K4.5 BUN17 Cr1 eGFR78 AST36 ALT63 AP70 Tbili0.5 Alb4.5 Ca9.8 Urine Alb/Cr ratio 1268Allergies: NKDAHCP reviewed. Email sent to SW and PN to investigate if paperwork is availableAdvance Directives reviewed.MOLST done: 10/19/22 Full codeLast MoCa: 05/01/22GOC: Longevity Diabetes monitoring: Ppt using Ethan, average 180-200 with some in 50s-60s in the past month. OV [facility] OV - 17 JUN 2022HPIVisit [...] once weekly injection before I discuss trmayraity W3GVD3l 8.8On glipizide, metformin, JanuviaPpt comes to SE once weeklyPpt is agreeable with TrmayraityWe discuss that I would like him to check his sugars BIDHe cannot write or read He is agreeable to Urjanet systemHTN w/ CKDHctz and LisinoprilCr 1.00GFR 78 / CKD 2BP recheck on room 142/84KNEE OAbilateral hx Cant use cortisone inj due to rxn in pastHe would like to try a topical agent Knees aren't given outALLERGIES No changes vs nextgen ROSno N V F Cno CP SOBno abd pain(+)bilateral knee painPEGen male appearing age NAD very pleasant Heart RRR (+)s2z9xdb soft NT with (+)BS in all quadrants, [...] medical records beyond those available in the [facility] system where he had 2 hospitalizations. The [...] plaque. He tells me he saw a vice president diversity in [place] in the past although does not recall [...] we learned [place] [facility] [facility] [place] [facility] traumatic injury of right [...] agoMarried for 5-6 decades.Adult son living in [place]. Several grandchildren living locally. Daughter who I believe lives locally .Patient worked in [employer] and then [employer]Functional history:Needs assistance with lower body bathing and dressingAbility to manage medications limited by illiteracyRarely uses walker or caneFall only in the context of his acute illness [facility] Instructions Date Instruction Additional [...] disease, without long-term current use of insulin Given worsening kidn ey function,lisinopril halved from 20mg to 10mg, metformin decreased to 500mg BID, would recommend weekly BPs to then further adjust HCTZ Related to Stage 3a chronic kidney disease (CKD) BP today 140/60s Not ed to be orthostatic, recommended increasing fluid intakelabs today Related to 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 Ppt had a CGM but does not want it anymore. - labs today Related to Type 2 diabetes mellitus with stage 3a chronic kidney disease, without long-term current use of insulin 01/15/23 A1c 5.56/8/2 3 A1c 5.3 12/11/22 [...] disease (CKD) 12/25/22 WBC9.4 H/H 14 .3/42 Hcg808 Folate 18.1 12/11/22 Qdsjawhe55 %sat42 LUWA493 repeat labs ordered Related to H/O macrocytic [...] 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 Ppt previously saw a vice president diversity per ppt at [place], still do not have records despite requesting. Ppt does not want follow up CTA at this time Related to Pleural calcification Appears to have stop ped having daytime sleepiness, unclear about apneic eventssleep study is ordered Related to Primary snoring 01/15/23:BUN16 Cr1.58 eGFR45 A1c 5.5, A1c goal for ppts age is 7-8%PCP discontinued glipizide at last visitNoting that ppt does not come to the site consistently as he did prior, therefore shared decision making with this provider, PCP and ppt to discontinue trulicity and continue metformin alone- Repeat A1c moved to week of 03/20/23 with CMP- Ethan to be sent to [facility] for changing q14 days Related to Chronic kidney disease, stage 3a 01/15/23: A1c 5.5, A1 c goal for ppts age is 7-8%PCP discontinued glipizide at last visitNoting that ppt does not come to the site consistently as he did prior, therefore shared decision making with this provider, PCP and ppt to discontinue trulicity and continue metformin alone- Repeat A1c moved to week of 03/20/23 with CMP- Ethan to be sent to [facility] for changing q14 days Related to Type 2 diabetes mellitus with stage 3a chronic kidney disease, without long-term current use of insulin GFR 49sulfonylurea d c'd labs todayeval ongoing Related to Chronic kidney disease, stage 3a trulicity Related to Long- term (current) use of injectable non-insulin antidiabetic drugs Using glipizide and trulicityOn 12/25/22 a1c was 5.3%GFR was down to 49ppt agreeable with dc of glipizidewill cont trulicityCMP and A1c todaycont eval Related to Type 2 diabetes mellitus with stage 3a chronic kidney disease, unspecified whether skilled nursing insulin use Ppt BP noted to be [...] kidney disease, unspecified whether heart failure present Comes to us with a d iagnosis of hyperlipidemia. Given diabetes this is unsurprising.-Obtain lipid panel today-Consider statin Related to Hyperlipidemia, unspecified hyperlipidemia type Please see DM under DM with CKD. The patient does report mild neuropathic dysesthesias. He had been on high dose gabapentin at night with improvement. 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 Ppt previously saw a vice president diversity per ppt at [place], still do not have records. Will alert [...] doesnt want to leave his alone, per [facility] records, no TTE noted in the [...] details known-There is no immunization record in [facility]. We have no records from primary [...] known asbestosis. He alludes to having a vice president diversity in [place]. We do not currently have any information about this-Await medical records -Consider referral to [facility] pulmonary given his overall goalslikely needs dedicated CT chest Related to Pleural calcification Had status epileptic us in 2021 with [facility] admission. He is not on antiepileptics. 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
--- OUTSIDE RECORDS SUMMARY | 2025-02-07 12:09 | XMS_ITS | Clinical Summary ---
Author Organization [facility] Address [address] [place] [address] Care Team Providers Care Group Segment Consultant Name Role Phone Unavailable Primary Care Provider Unavailabl e Social History Tobacco Use Types Packs/Day Years Used Date Smoking Tobacco: Never Assessed Sex and Gender Information Value Date Recorded Sex Assigned at Not on file Legal Sex Male 4:34 PM EST Gender Identity Not on file Sexual Orientation Not on file Plan of Treatment Not on file Medical Devices Not on file
--- OUTSIDE RECORDS SUMMARY | 2025-02-07 12:10 | XMS_ITS | Patient Health Record ---
Author Organization [facility] Address [address] [place] [address] Care Team Providers Care Swatch Folder Name Role Phone Pilar GASTELUM, Gaby Primary Care Provider Unavail able Tommy Eli Unavailable [phone] Nika Fuller Unavailable [phone] Allergies Allergen (clinical drug ingredient) Drug/Non Drug Allergy documented on EMR Reaction Allergy Type Onset Date Status injectable steroids cortisone (uncoded) shortness of breath Allergy Active Results Component Value Reference Range Notes HEMOGLOBIN A1C (GLYCOHEMOGLO BIN) Reviewed date:2024 11:36:34 AM Interpretation: Performing Lab: Notes/Report: HEMOGLOBIN A1C % (HH) 5.4 HEMOGLOBIN A1C (GLYCOHEMOGLO BIN) Reviewed date:09/29/2024 03:46:48 PM Interpretation: Performing Lab: Notes/Report: HEMOGLOBIN A1C % (HH) 6.3 Reason For Referral No Information Medications Medication SIG (Take, Route, Frequency, Duration) Notes Start Date End Date Status Extra Depth Orthopedic Shoes, (1) Pair With (3) Pair Custom Heat Molded Multidensity Innersoles Dx: NIDDM/PVD(E11.51), Hammertoe Foot Deformity(M20.41,M20.42) , Preulcerative Skin Lesion(s)(L85.1) Wear Daily; Duration: 365 days 12/15/2024 Active metFORMIN HCl 1000 MG Oral; Duration: 30 Days Active metFORMIN HCl 1000 MG Oral; Duration: 30 Days Active Simvastatin 40 MG Oral; Duration: 30 Days Active Simvastatin 40 MG Oral; Duration: 30 Days Active Lisinopril 40 MG Oral; Duration: 30 Days Active Lisinopril 40 MG Oral; Duration: 30 Days Active Gabapentin 300 MG Oral; Duration: 30 Days Active Gabapentin 300 MG Oral; Duration: 30 Days Active GoodSense Aspirin 81 MG Oral; Duration: 30 Days Active Lisinopril 20 MG Oral; Duration: 30 Days Not-Taking GoodSense Aspirin 81 MG Oral; Duration: 30 Days Active Lisinopril 30 MG Oral; Duration: 30 Days Not-Taking Lisinopril 20 MG Oral; Duration: 30 Days Not-Taking Lisinopril 30 MG Oral; Duration: 30 Days Not-Taking amLODIPine Besylate 10 MG Oral; Duration: 30 Days Acti ve amLODIPine Besylate 10 MG Oral; Duration: 30 Days Acti ve Trulicity 0.75 MG/0.5ML Subcutaneous; Du ration: 28 Days Active Tradjenta 5 MG Oral; Duration: 30 Days Active glipiZIDE 10 MG Oral; Duration: 30 Days Active glipiZIDE 10 MG Oral; Duration: 30 Days Active Glimepiride 4 MG Oral; Duration: 30 Days Active Glimepiride 4 MG Oral; Duration: 30 Days Active levETIRAcetam 500 MG Oral; Duration: 30 Days Active levETIRAcetam 500 MG Oral; Duration: 30 Days Active Lisinopril 10 MG Oral; Duration: 30 Days Active Lisinopril 10 MG Oral; Duration: 30 Days Active Social History Tobacco Use: Social History Observation Description Date Details (start date - stop date) Never Smoker NA - NA Tobacco use other than smoking: Question Answer Notes Are you an other tobacco user? No Tobacco Control (Standard) Question Answer Notes Tobacco use: Nonsmoker Additional Findings: Tobacco non-user Current no nsmoker AUDIT-C (Standard) Question Answer Notes Did you have a drink containing alcohol in the p ast year? No Points 0 Interpretation Negative Problems Problem Type SNOMED Code ICD Code Onset Dates Problem Status W/U Status Risk Notes Problem Acquired hammer toe of right foot (8434726267440 105) Other hammer toe(s) (acquired), right foot (M20.41) Active confirmed Problem Type 2 diabetes mellitus with peripheral angiopathy (061275877) Type 2 diabetes mellitus with diabetic peripheral angiopathy without gangrene (E11.51) Active confirmed Q7(A), Q8(2B), Q9(1B,2C) Problem Acquired hammer toe of left foot (6533311868053 103) Other hammer toe(s) (acquired), left foot (M20.42) Active confirmed Vital Signs Blood pressure diastolic 70 mm Hg 12/15/2024 Height 5ft 8in in 12/15/2024 Blood pressure systolic 133 mm Hg 12/15/2024 Weight 180 lbs 12/15/2024 BMI 27.37 kg/m2 12/15/2024 Procedures Procedure Date Ordered Date Performed Result Body Sit e 10365-TUZGQNJ NAIL, 6 OR MORE 06/21/2024 N/A [id number] NAIL, 6 OR MORE 09/29/2024 N/A Encounters Encounter Location Date Provider Diagnosis [address] [address] 06/21/2024 Tommy Eli Type 2 diabetes mellitus with diabetic peripheral angiopathy without gangrene E11.51 ; Tinea unguium B35.1 ; Pain in right toe(s) M79.674 and Pain in left toe(s) M79.[address] [address] 09/29/2024 Tommy Eli Controlled type 2 diabetes mellitus with diabetic polyneuropathy, without long-term current use of insulin E11.42 and Tinea unguium B35.[address] [address] 12/15/2024 Nika Fuller Type 2 diabetes mellitus with diabetic peripheral angiopathy without gangrene E11.51 ; Tinea unguium B35.1 ; Pain in right toe(s) M79.674 ; Pain in left toe(s) M79.675 ; Other hammer toe(s) (acquired), left foot M20.42 and Other hammer toe(s) (acquired), right foot M20.[address] [address] 08/01/2024 Tommy Eli [address] [address] 2024 Tommy Eli Assessments Encounter Date Diagnosis (ICD Code) Assessment Notes Treatment Notes Treatment Clinical Notes Section Notes 06/21/2024 Type 2 diabetes mellitus with diabetic peripheral angiopathy without gangrene (ICD-10 - E11.51) Q7(A), Q8(2B), Q9(1B,2C) 06/21/2024 Tinea unguium (ICD-10 - B35.1) 09/29/2024 Controlled type 2 diabetes mellitus with diabetic polyneuropathy, without long-term current use of insulin (ICD-10 - E11.42) 12/15/2024 Type 2 diabetes mellitus with diabetic peripheral angiopathy without gangrene (ICD-10 - E11.51) Q7(A), Q8(2B), Q9(1B,2C) 06/21/2024 Pain in right toe(s) (ICD-10 - M79.674) 09/29/2024 Tinea unguium (ICD-10 - B35.1) 12/15/2024 Tinea unguium (ICD-10 - B35.1) 12/15/2024 Pain in right toe(s) (ICD-10 - M79.674) 06/21/2024 Pain in left toe(s) (ICD-10 - M79.675) 12/15/2024 Pain in left toe(s) (ICD-10 - M79.675) 12/15/2024 Other hammer toe(s) (acquired), left foot (ICD-10 - M20.42) 12/15/2024 Other hammer toe(s) (acquired), right foot (ICD-10 - M20.41) Patient Educated with: DIABETIC FOOT CARE INSTRUCTIONS.p df (DIABETIC FOOT CARE INSTRUCTIONS.p df) Plan Of Treatment Pending Test Test Name Order Date [id number] NAIL, 6 OR MORE 06/21/2024 [id number] NAIL, 6 OR MORE 09/29/2024 Next Appt Details Provider Name:Nika hinojosa, 02/23/2025 03:15:00 PM, [address] [facility], [place], [address], Insurance Providers Payer Name Payer Address Payer Phone Subscriber Number Group Number Insured Name Patient Relationship to Insured Coverage Start Date Coverage End Date [facility] SCO Claims [address] [place] [id number] [phone] [facility]00 [id number] Tyree Lafleur Self - patient is the insured Medical (General) History Medical History History ICD Code Arthritis asthma Back,Hip,and Knee pain Broken bones Cataracts covid-19 Dementia type II diabetes High Blood Pressure [place] pox Joint implants/screws eye injections Surgical History Surgery Date(Month/Year) bone implant 1970
[2025-02-07 12:44] LABS: Prostate Specific Antigen 3.59 ng/mL (<0.05-4.0)
== END 2025-02-07 10:54 | disposition home or self-care (01) ==
LOC: HO.LAB 10:53
PROVIDERS: PCP Internal Medicine; Visit Provider Urology
DX: N52.9 Male erectile dysfunction, unspecified (principal)
CPT/HCPCS: 36415; 84153

== ENCOUNTER 2025-02-13 15:57 | Outpatient (AMB) | payer OTHER, SELFPAY ==
--- OUTSIDE RECORDS SUMMARY | 2024-01-07 10:17 | XMS_ITS | Continuity of Care Document ---
Author Organization [facility] Address [address] [address] Phone Care Team Providers Care [place] Former Name Role Phone Hollis BECKRE, Martha Unavailable U navailable Allergies, Adverse Reactions, [...] use as directed - Active DELIVER TO [facility] [address] SP[address] Trulicity [...] Active DELIVER TO HOME FreeStyle Ethan 2 Vance use as directed - Active PLEASE DELIVER TO HOME Prevnar 20 (PF) 0.5 mL intramuscular syringe inject 0.5 milliliter by intramuscular route once 0.50 milliliter - Active Please deliver to site in [place] Advance Directives Directive Yes / No Effective Date File Name No Information Encounters Encounter Description Practice Location Reason(s) For Visit Diagnoses Date Provider [facility], [address] [place] [address], [place], [place], [id number], [place] tel:[phone] [place] No Information 4 [facility]. [address], [place], [place], [id number], [place]. tel:[phone] [facility], [address], [place], [place], [id number], [place] tel:[phone] [place] No Information 4 [facility]. [address] [place], [place], [id number], [place]. tel:[phone] [facility], [address], [place], [place], [id number], [place] tel:[phone] [place] Acute Visit (chief complaint) Illness, unspecifiedLong toenail 4 [facility]. [address] [place], [place], [id number], [place]. tel:[phone] [facility], [address], [place], [place], [id number], [place] tel:[phone] [place] [facility] without abnormal findings 4 [facility]. [address] [place], [place], [id number], [place]. tel:[phone] [facility], [address] [facility] [address], [place], [place], [id number], [place] tel:[phone] [place] No Information 3 Bhagavatula Ujjwala. [address] [place], [place], [id number], [place]. tel:[phone] [facility], [address], [place], [place], [id number], [place] tel:[phone] [place] No Information 3 Bhagavatula Ujjwala. [address] [place], [place], [id number], [place]. tel:[phone] [facility], [address], [place], [place], [id number], [place] tel:[phone] [place] No Information 3 Bhagavatula Ujjwala. [address] [place], [place], [id number], [place]. tel:[phone] [facility], [address], [place], [place], [id number], [place] tel:[phone] [place] Encounter for rehabilitation evaluation 3 Ellie Nesbitt. [address] [place], [id number], [place]. tel:[phone] [facility], [address], [place], [place], [id number], [place] tel:[phone] [place] Type 2 diabetes mellitus with stage 3b chronic kidney disease, without long-term current use of insulinChronic kidney disease, stage 3b 3 Bhagavatula Ujjwala. [address] [place], [id number], [place]. tel:[phone] [facility], [address], [place], [place], [id number], [place] tel:[phone] [place] No Information 3 Bhagavatula Ujjwala. [address] [place], [id number], [place]. tel:[phone] [facility], [address], [place], [place], [id number], [place] tel:[phone] [place] No Information 3 Bhagavatula Ujjwala. [address] [place], [id number], [place]. tel:[phone] [facility], [address], [place], [place], [id number], [place] tel:[phone] [place] Stage 3a chronic kid gifty disease (CKD)Type 2 diabetes mellitus with stage 3b chronic kidney disease, without long-term current use of insulinChronic kidney disease, stage 3b 3 Bhagavatula Ujjwala. [address] [facility] [address], [place], [place], [id number], [place]. tel:[phone] [facility], [address] [facility] [address] [facility], [place], [place], [id number], [place] tel:[phone] [place] Encounter for rehabilitation evaluation Sep-2 3 Avni Correa. [address] [place], [place], [id number], [place]. tel:[phone] [facility], [address] [facility] [address] [facility], [place], [place], [id number], [place] tel:[phone] [place] Encounter for rehabilitation evaluation Sep-2 3 Bryce Wright. [address] [place], [place], [id number], [place]. tel:[phone] [facility], 1 [facility] [address] [facility], [place], [place], [id number], [place] tel:[phone] [place] No Information Sep- 3 Bhagavatula Ujjwala. [address] [facility] [place], [id number], [place]. tel:[phone] [facility], [address] [facility] [address] [facility], [place], [place], [id number], [place] tel:[phone] [place] Semi-Annua l (chief complaint) Encounter for nutritional assessment Sep- 3 Genia Garcia. 101 [facility], [place], [address]. tel:[phone] [facility], [address] [facility] [address] [facility], [place], [place], [id number], [place] tel:[phone] [place] Semi-Annua l (chief complaint) Primary snoringLung fibrosisPleural [...] kidney disease 3 Maddisonagaevelintula Ujjwala. [address] [place], [id number], [place]. tel:[phone] [facility], [address], [place], [place], [id number], [place] tel:[phone] [place] No Information 3 Juankatie Robertsonn. [address] [place], [place], [id number], [place]. 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 [address] [facility] [place], [id number], [place]. tel:[phone] [facility], [address], [place], [place], [id number], [place] tel:[phone] [place] Shortness of breath 3 Kj Childresswala. [address] [facility] [place], [id number], [place]. tel:[phone] [facility], [address], [place], [place], [id number], [place] tel:[phone] [place] Fall (chief complaint) Leg pain, rightType 2 diabetes mellitus with stage 3a chronic kidney disease, without long-term current use of insulinChronic kidney disease, stage 3a 3 Maddisonagaevelintula Ulambertojwala. [address] [facility] [place], [id number], [place]. tel:[phone] [facility], [address], [place], [place], [id number], [place] tel:[phone] [place] OV (chief complaint) Type 2 diabetes mellitus with stage 3a chronic kidney disease, unspecified whether half-way insulin useChronic kidney disease, stage 3aLong-term (current) use of injectable non-insulin antidiabetic drugs 3 Konstantin Henderson. [address], [place], [place], [id number], [place]. tel:[phone] [facility], [address], [place], [place], [id number], [place] tel:[phone] [place] No Information 3 Konstantin Henderson. [address], [place], [place], [id number], [place]. tel:[phone] [facility], [address] [facility] [address], [place], [place], [id number], [place] tel:[phone] [place] No Information 3 Konstantin Henderson. [address], [place], [place], [id number], [place]. tel:[phone] [facility], [address], [place], [place], [id number], [place] tel:[phone] [place] Semi-Annua l (chief complaint) Primary snoringSlow transit [...] drugs 3 Kj Womack. [address], [place], [place], [id number], [place]. tel:[phone] [facility], [address], [place], [place], [id number], [place] tel:[phone] [place] Encounter for genera l adult medical examination without abnormal findings 3 Konstantin Henderson. [address], [place], [place], [id number], [place]. tel:[phone] [facility], [address] [facility] [address], [place], [place], [id number], [place] tel:[phone] [place] OV (chief complaint) Hypertensive heart and kidney disease without heart failure and with stage 3a chronic kidney diseaseChronic kidney disease, stage 3a 2 Konstantin Henderson. [address] [facility] [place], [id number], [place]. tel:[phone] [facility], [address] [facility] [address] [facility], [place], [place], [id number], [place] tel:[phone] [place] OV (chief complaint) Hypertensive heart and kidney disease without heart failure and with stage 2 chronic kidney diseaseChronic kidney disease, stage 2 (mild)Type 2 diabetes mellitus with stage 2 chronic kidney disease, without long-term current use of insulinChronic pain of both kneesPain in left kneeOther chronic pain 2 Konstantin Henderson. [address] [place], [id number], [place]. tel:[phone] [facility], [address] [facility] [address] [facility], [place], [place], [address], [place] tel:[phone] [place] Encounter for genera l adult medical examination without abnormal findings 2 Janny Ellis. [address] [place], [address], [place]. tel:[phone] [facility], [address] [facility] [address] [facility], [place], [place], [address], [place] tel:[phone] [place] Encounter for nutritional assessmentDiabetic nutritional counseling completed 2 Isabel Lyons. [address] [place], [id number], [place]. tel:[phone] [facility], 1 [facility] [address] [facility], [place], [place], [id number], [place] tel:[phone] [place] Encounter for rehabilitation evaluation 2 Pipo Hightower. [address] [place], [address]. tel:[phone] [facility], [address] [address], [place], [place], [id number], [place] tel:[phone] [place] Encounter for rehabilitation evaluationOther chronic pain 2 Reece Patel. [address] [place], [place], [id number], [place]. tel:[phone] [facility], 1 [facility] [address] [facility], [place], [place], [id number], [place] tel:[phone] [place] PEE (chief complaint) Coronary artery calcification seen [...] general health examination 2 Juan Child. [address] [place], [place], [id number], [place]. tel:[phone] [facility], [address] [address], [place], [place], [address], [place] tel:[phone] [place] Encounter for rehabilitation evaluation 2 Reecetheodore Patel. [address] [place], [place], [address], [place]. tel:[phone] Family History Family Member Type Diagnosis Age [...] Insurance type Covered republican ID Authoriza tion(s) [facility] [id number] [facility] [id number] [facility] [id number] [facility] [id number] [facility] 16 [id number] Social History Type Description Quantity Date Captured Comments Sex Male Smoking Status No Information Chief Complaint And Reason For Visit No Information Plan Of Treatment Date Type Action Status Referral Ordered: Dentistry (related to Encounter for general health examination) ordered Referral Ordered: Referrals: Dentistry ordered Referral Ordered: [place] [facility] [facility] [place] Referral Ordered: Referrals: Podiatry. Evaluate and treat Appointment date/timeframe: 05/04/2023 ordered Referral Ordered: Referrals: [facility]ointment date/timeframe: 10/27/2022 ordered Referral Ordered: Referrals: Otolaryngology. Follow-up and treat Appointment date/timeframe: 08/25/2022 ordered Referral Ref[place] To: [facility] Ordered: Referrals: Dentistry. [facility] Evaluate and treat Appointment date/timeframe: 10/15/2022 ordered Referral Referred To: [facility] Ordered: Referrals: Motor Inspection Mechanic. [facility]. Evaluate and treat Appointment date/timeframe: 10/15/2022 ordered Referral Referred To: [facility] Ordered: Referrals: Podiatry. [facility]. Evaluate and treat ordered Future Order: Radiology Order Jaqui uriostegui study, unattended ([id number]), Ordered on: Ordered History Of Present Illness Encounter Date Complaint History Of Prese nt Illness Acute Visit PPT is a 77 yr o ld male seen in the clinic with Oma Mosquera MA as web developer programmer as PPT is Finnish speaking, seen for respiratory s/sx without cough, States his is coughing and he feels like he is coming down with something. Vitals stable not fever no cough lung sounds clear. He also state that he has not seen the police officer and that his toe nails are catching [...] Collective.NO falls documented per [facility] incident reporting SERVICES/CONSULTANTS:[facility] podiatryOPEN ORDERSHome sleep study - maylin still [...] LFTs normal A1c 5.56/8/23 WBC9.4 H/H 14.3/42 Gtm213 BNP 66 Folate 18.1 A1c 5.3 BWL202/25/23 Oqkcotnw74 %sat42 WTTC835 Na135 K4.3 Mg2.4 Phos3.7 BUN22 Cr1.46 eGFR49 LFTs normal Alb/Cr ratio 985 Ca 8.9 Ionized Ca 5.2 TSH2.34 V23BT381 VWV402 HDL46 KF69163/ Na 140 K4.2 BUN20 Cr1.38 eGFR53 Ca9.511/ Na140 K4.1 BUN22 Cr1.46 eGFR50 Ca9.511/03/10 Na141 K4.2 BUN19 Cr1.37 eGFR53 AST19 ALT10 AP78 Ca9.3 Alb4.1 Tbili 0.4 HBV core Ab reactive, HBV surface Ab reactive, HCV ab non /13/22 WBC 11.8 H/H13.7/41.2 Lzb783 Na142 K4.5 BUN17 Cr1 eGFR78 AST36 ALT63 [...] joined [place] using januvia and glipizide last bcsmnpP6r was 8.8%Dc'd januvia and added Trulicity On [...] Collective.NO falls documented per [facility] incident reporting SERVICES/CONSULTANTS:[facility] podiatryNO OPEN ORDERS OR OPEN DIAGNOSTICS NOTED.Ppt [...] few weeks last month. Per history in [facility], appears ppt had an admission last [...] night and as needed for ambulation. Per [facility] records, he had COVID pneumonia and [...] hernia , however per imaging found on [facility] records no documentation of a hernia [...] HCTZ for blood pressure.Labs reviewed. Labs today ooqohfn40/27/22 Na 140 K4.2 BUN20 Cr1.38 eGFR53 Ca9. Na140 K4.1 BUN22 Cr1.46 eGFR50 Ca9.511 Na141 K4.2 BUN19 Cr1.37 eGFR53 AST19 ALT10 AP78 Ca9.3 Alb4.1 Tbili 0.4 HBV core Ab reactive, HBV surface Ab reactive, HCV ab non ubliexoz06/13/22 WBC 11.8 H/H13.7/41.2 Ztw553 Na142 K4.5 BUN17 Cr1 eGFR78 AST36 ALT63 AP70 Tbili0.5 Alb4.5 Ca9.8 Urine Alb/Cr ratio 1268Allergies: NKDAHCP reviewed. Email sent to SW and PN to investigate if paperwork is availableAdvance Directives reviewed.MOLST done: 10/19/22 Full codeLast MoCa: 05/01/22GOC: Longevity Diabetes monitoring: Ppt using Ethan, average 180-200 with some in 50s-60s in the past month. Semi-Annual OV [facility] - 17 JUN 2022HPIVisit to address [...] once weekly injection before I discuss trmayraity G7BDI0x 8.8On glipizide, metformin, JanuviaPpt comes to [facility] once weeklyPpt is agreeable with TrmayraityWe discuss that I would like him to check his sugars BIDHe cannot write or read He is agreeable to CompuPay systemHTN w/ CKDHctz and LisinoprilCr 1.00GFR 78 / CKD 2BP recheck on room 142/84KNEE OAbilateral hx Cant use cortisone inj due to rxn in pastHe would like to try a topical agent Knees aren't given outALLERGIES No changes vs nextgen ROSno N V F Cno CP SOBno abd pain(+)bilateral knee painPEGen male appearing age NAD very pleasant Heart RRR (+)w5x5dav soft NT with (+)BS in all quadrants, [...] medical records beyond those available in the [facility] system where he had 2 hospitalizations. [...] plaque. He tells me he saw a assistant department manager in [place] in the past although does not recall [...] we learned [place] [facility] [place] [facility] [place] [facility] traumatic injury of right [...] agoMarried for 5-6 decades.Adult son living in [place]. Several grandchildren living locally. Daughter who I believe lives locally .Patient worked in [employer] and then triptapFunctional history:Needs assistance with lower body bathing and dressingAbility to manage medications limited by illiteracyRarely uses walker or caneFall only in the context of his acute illness [facility] Instructions Date Instruction Additional Infor [...] with stage 3a chronic kidney disease 12/11/22 ABO981 TG194 HDL46 CH180- lipid panel today Related [...] disease (CKD) 12/25/22 WBC9.4 H/H 14 .3/42 Mmf478 Folate 18.1 12/11/22 Nzluascr48 %sat42 LZTE295 repeat labs ordered Related to H/O macrocytic [...] 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 Ppt previously saw a assistant department manager per ppt at [place], still do not have records despite requesting. [...] with CMP- [facility] q14 days Related to [...] with CMP- Ethan [facility] q14 days Related to [...] stage 3a chronic kidney disease, unspecified whether half-way insulin use Ppt BP noted to be [...] Urine Alb/C r ratio 1268 A1c 8.8Per [facility] records ppt had a generalized seizure [...] and trulicity per conversation with endocrine [employer]PER[employer] at [facility]- Labs today Related to Type 2 diabetes mellitus with stage 3a chronic kidney disease, without long-term current use of insulin 07/15/22 BUN20 Cr1.3 8 vGTK4310/22/22 BUN22 Cr1.46 eGFR50 05/27/22 BUN19 Cr1.37 eGFR53 05/01/22 BUN17 Cr1 eGFR78 Labs today, as the previous 3 test results have been stable Related to Stage 3a chronic kidney disease (CKD) 05/01/22 WBC 11.8 H/ H13.7/41.2 Itc728 Labs today Related to H/O macrocytic anemia [...] rub toda Related to Other chronic pain Ppt states he has ch est pain [...] 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 Ppt previously saw a assistant department manager per ppt at [place], still do not have records. Will alert [...] doesnt want to leave his alone, per [facility] records, no TTE noted in the [...] known asbestosis. He alludes to having a assistant department manager in [place]. We do not currently have any information about this-Await medical records -Consider referral to [facility] pulmonary given his overall goalslikely needs dedicated CT chest Related to Pleural calcification Had status epileptic us in 2021 with [facility] admission. He is not on antiepileptics. 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
--- NOTE | 2025-02-13 15:36 | MHC.OFFVIS ---
Intake Visit Reasons: 4M follow up/ PSA Allergies cortisone Adverse Reaction (Intermediate, Verified 10/14/24 15:06) Cough HPI Comments Details: 02/13/25--Tyree is a 79-year-old male who was seen in the past with concerns regarding erectile dysfunction he was treated with daily Cialis. He was scheduled for PSA screening. I have reviewed with him that PSA results 02/07/2025 is 3.59. The patient does not report any issues with voiding dysfunction. Follow-up with nurse practitioner in 6 months regarding concerns for erectile dysfunction. History of Present Illness - The patient is a 79-year-old male presenting for follow-up on erectile dysfunction and PSA screening results. - History of erectile dysfunction treated with daily Cialis. - PSA screening was conducted, and the result was 3.59, which is within normal limits. Results - PSA screening result: 3.59 ng/mL Plan - Schedule follow-up with nurse practitioner for erectile dysfunction management. - Monitor PVR 10/14/24--The patient is a 79-year-old male presenting with erectile dysfunction, which has been a persistent issue for nearly three years. Previous attempts to manage this condition included the use of Viagra three months ago, which was not effective in improving his erectile function. The patient's extensive medication regimen includes treatment for diabetes mellitus, which he continues to manage concurrently with his erectile dysfunction. He reports no improvement in his erectile function despite medication trials. We discussed the management of the patient's erectile dysfunction, emphasizing the use of a daily low dose of Cialis (tadalafil) at 5 mg, which may take up to three months to become effective. We discussed introducing a higher dose of 20 mg tadalafil for use before intercourse, not to exceed twice weekly, to enhance erectile function. Alternative treatment options were discussed, including injections and surgical interventions such as a penile pump if medication remains ineffective. [facility] Medical History Seizures Microalbuminuria Post-COVID chronic dyspnea Oxygen dependent GERD (gastroesophageal reflux disease) Diabetes mellitus Lumbar degenerative disc disease Pure hypercholesterolemia Essential hypertension Surgical History S/P matrixectomy of toe History of cervical spinal surgery Family History Father No problems noted. Mother No problems noted. Social History Housing: Apartment Alcohol intake: never Patient Tobacco Use Status: Never used Tobacco e-Cigarette/Vaping Use: Never Used Second Hand Smoke Exposure: No service: No Current occupational status: retired and disabled Current occupational exposures/hazards: No Cognitive needs: No Hearing needs: No Vision needs: Yes Review of Systems Const All systems reviewed & are unremarkable except as noted in HPI and below Reports no additional complaints Eyes Reports no additional complaints ENT Reports no additional complaints Card Reports no additional complaints Resp Reports no additional complaints GI Reports no additional complaints Reports as per HPI Musc Reports no additional complaints Skin/Breast Reports system reviewed and no additional complaints, except as documented Neuro Reports no additional complaints Psych Reports no additional complaints Endo Reports no additional complaints Jorge Alberto/Lymph Reports no additional complaints Aller/Immun Reports no additional complaints Telehealth Telehealth Telehealth Platform: Telephone Location of provider rendering services: practice address Location of patient: address on file Patient Identification confirmed using: Name, : Yes Telehealth method: voice only Patient verbally consented to treatment: Yes Patient verbally consented to billing insurance company: Yes Patient informed of any privacy concerns related to visit: Yes Minutes spent on Phone/Video with Pt.: 13 Assessment & Plan Assessment & Plan (1) Erectile dysfunction: Code(s): N52.9 - Male erectile dysfunction, unspecified Category: Medical Qualifiers: Erectile dysfunction type: unspecified Qualified Code(s): N52.9 - Male erectile dysfunction, unspecified (2) BPH (benign prostatic hyperplasia): Code(s): N40.0 - Benign prostatic hyperplasia without lower urinary tract symptoms Category: Medical Plan Plan - Schedule follow-up with nurse practitioner for erectile dysfunction management. - Monitor PVR Patient Instructions: The patient had an opportunity to ask questions regarding treatment plan. The patient expressed understanding and agreement with the above treatment plan. The patient is aware they should contact our office by phone for worsening of their current condition or the appearance of new symptoms. Compliance is encouraged with any medications and followup testing that is ordered. It is a privilege to be allowed the opportunity to participate in the urologic care of your patient. If you have any questions or concerns regarding treatment for the above conditions please do not hesitate to contact me. The office telephone contact is [phone]. This note is constructed in part using voice recognition software. While every effort has been made to ensure accuracy pss delivery professional errors may have been included. Yours sincerely, Glory Castillo MD Scribe Plan - Not visible on output: Patient was informed and verbally consented to the use of an ambient scribe for clinic note documentation during this visit. Coding Level of Care Code Tele Est Pt Level 3 (66813) Diagnoses Erectile dysfunction, unspecified erectile dysfunction type N52.9 Erectile dysfunction type: unspecified BPH (benign prostatic hyperplasia) N40.0
--- OUTSIDE RECORDS SUMMARY | 2025-02-13 16:04 | XMS_ITS | Clinical Summary ---
Author Organization [facility] Address [address] [place] [address] Care Team Providers Care Pension Fund Manager Name Role Phone Unavailable Primary Care Provider [...]
--- OUTSIDE RECORDS SUMMARY | 2025-02-13 16:05 | XMS_ITS | Patient Health Record ---
Author Organization [facility] Address [address] [place] [address] Care Team Providers Care Tetryl Boiling Tub Operator Name Role Phone Pilar GASTELUM, Gaby Primary Care Provider Unavail able Tommy Eli Unavailable [phone] Nika Fuller Unavailable [phone] Allergies Allergen (clinical drug ingredient) Drug/Non Drug Allergy documented on EMR Reaction Allergy Type Onset Date Status Information temporarily unavailable injectable steroids cortisone (uncoded) shortness of breath [...] Problem Acquired hammer toe of right foot (5421517424941 105) Other hammer toe(s) (acquired), right foot (M20.41) Active confirmed Problem Type 2 diabetes mellitus with peripheral angiopathy (720711912) Type 2 diabetes mellitus with diabetic peripheral angiopathy without gangrene (E11.51) Active confirmed Q7(A), Q8(2B), Q9(1B,2C) Problem Acquired hammer toe of left foot (9124067672088 103) Other hammer toe(s) (acquired), left foot (M20.42) Active confirmed Vital Signs Blood pressure diastolic 70 mm Hg 12/15/2024 Height 5ft 8in in 12/15/2024 Blood pressure systolic 133 mm Hg 12/15/2024 Weight 180 lbs 12/15/2024 BMI 27.37 kg/m2 12/15/2024 Procedures Procedure Date Ordered Date Performed Result Body Sit e [id number] NAIL, 6 OR MORE 06/21/2024 N/A [id number] NAIL, 6 OR MORE 09/29/2024 N/A Encounters Encounter Location Date Provider Diagnosis [address] [address] 06/21/2024 Tommy Eli Type 2 diabetes mellitus with diabetic peripheral angiopathy without gangrene E11.51 ; Tinea unguium B35.1 ; Pain in right toe(s) M79.674 and Pain in left toe(s) M79.[address] [address] 09/29/2024 Tommy Eli Controlled type 2 diabetes mellitus with diabetic polyneuropathy, without long-term current use of insulin E11.42 and Tinea unguium B35.[address] [address] 12/15/2024 Nika Fuller Type 2 diabetes mellitus with diabetic peripheral angiopathy without gangrene E11.51 ; Tinea unguium B35.1 ; Pain in right toe(s) M79.674 ; Pain in left toe(s) M79.675 ; Other hammer toe(s) (acquired), left foot M20.42 and Other hammer toe(s) (acquired), right foot M20.[address] [address] 08/01/2024 Tommy Eli [address] [address] 2024 Tommy Eli Assessments Encounter Date Diagnosis [...] Treatment Pending Test Test Name Order Date [id number] NAIL, 6 OR MORE 06/21/2024 [id number] NAIL, 6 OR MORE 09/29/2024 Next Appt Details Provider Name:Nika hinojosa, 02/23/2025 03:15:00 PM, [address] [facility], [place], [address], Insurance Providers Payer Name Payer Address Payer Phone Subscriber Number Group Number Insured Name Patient Relationship to Insured Coverage Start Date Coverage End Date [facility] [employer] S[employer] Claims [address] [place] [id number] [phone] [id number] Tyree Lafleur Self - patient is the insured Medical (General) History Medical History History ICD Code Arthritis asthma Back,Hip,and Knee pain Broken bones Cataracts covid-19 Dementia type II diabetes High Blood Pressure [place] pox Joint implants/screws eye injections Surgical History Surgery Date(Month/Year) bone implant 1969
== END 2025-02-13 15:58 | disposition home or self-care (01) ==
LOC: HO.HUSH 15:57
PROVIDERS: PCP Internal Medicine; Visit Provider Urology
DX: N52.9 Male erectile dysfunction, unspecified (principal); N40.0 Benign prostatic hyperplasia without lower urinary tract symptoms
CPT/HCPCS: 99213

== ENCOUNTER 2025-03-27 14:48 | Outpatient (AMB) | payer OTHER, SELFPAY ==
--- OUTSIDE RECORDS SUMMARY | 2024-01-07 10:17 | XMS_ITS | Continuity of Care Document ---
Author Organization [facility] Address [address] [address] Phone Care Team Providers Care Program Schedule Clerk Name Role Phone Hollis BECKER, Martha Unavailable [...] use as directed - Active DELIVER TO [facility] [address] Trulicity [...] Active DELIVER TO HOME FreeStyle Ethan 2 [place] use as directed - Active PLEASE DELIVER TO HOME Prevnar 20 (PF) 0.5 mL intramuscular syringe inject 0.5 milliliter by intramuscular route once 0.50 milliliter - Active Please deliver to site in [place] Advance Directives Directive Yes / No Effective Date File Name No Information Encounters Encounter Description Practice Location Reason(s) For Visit Diagnoses Date Provider [facility], [address] [place] [address], [place], [place], [id number], [place] tel:[phone] [place] No Information 4 [facility]. [address], [place], [place], [id number], [place]. tel:[phone] [facility], [address], [place], [place], [id number], [place] tel:[phone] [place] No Information 4 [facility]. [address] [place], [place], [id number], [place]. tel:[phone] [facility], [address], [place], [place], [id number], [place] tel:[phone] [place] Acute Visit (chief complaint) Illness, unspecifiedLong toenail 4 [facility]. [address] [place], [place], [id number], [place]. tel:[phone] [facility], [address], [place], [place], [id number], [place] tel:[phone] [place] Encounter for [facility] adult medical examination without abnormal findings 4 [facility]. [address] [place], [place], [id number], [place]. tel:[phone] [facility], [address] [facility] [address], [place], [place], [id number], [place] tel:[phone] [place] No Information 3 Bhagavatula Ujjwala. [address] [place], [place], [id number], [place]. tel:[phone] [facility], [address], [place], [place], [id number], [place] tel:[phone] [place] No Information 3 Bhagavatula Ujjwala. [address] [place], [place], [id number], [place]. tel:[phone] [facility], [address], [place], [place], [id number], [place] tel:[phone] [place] No Information 3 Bhagavatula Ujjwala. [address] [place], [place], [id number], [place]. tel:[phone] [facility], [address], [place], [place], [id number], [place] tel:[phone] [place] Encounter for rehabilitation evaluation 3 Ellie Nesbitt. [address] [place], [id number], [place]. tel:[phone] [facility], [address], [place], [place], [id number], [place] tel:[phone] [place] Type 2 diabetes mellitus with stage 3b chronic kidney disease, without long-term current use of insulinChronic kidney disease, stage 3b 3 Bhagavatula Ujjwala. [address] [place], [id number], [place]. tel:[phone] [facility], [address], [place], [place], [id number], [place] tel:[phone] [place] No Information 3 Bhagavatula Ujjwala. [address] [place], [id number], [place]. tel:[phone] [facility], [address], [place], [place], [id number], [place] tel:[phone] [place] No Information 3 Bhagavatula Ujjwala. [address] [place], [id number], [place]. tel:[phone] [facility], [address], [place], [place], [id number], [place] tel:[phone] [place] Stage 3a chronic kid gifty disease (CKD)Type 2 diabetes mellitus with stage 3b chronic kidney disease, without long-term current use of insulinChronic kidney disease, stage 3b 3 Bhagavatula Ujjwala. [address] [facility], [place], [place], [id number], [place]. tel:[phone] [facility], [address] [facility] [address], [place], [place], [id number], [place] tel:[phone] [place] Encounter for rehabilitation evaluation Sep-2 3 Avni Correa. [address] [place], [place], [id number], [place]. tel:[phone] [facility], [address] [facility] [address], [place], [place], [id number], [place] tel:[phone] [place] Encounter for rehabilitation evaluation Sep-2 3 Bryce Wright. [address] [place], [place], [id number], [place]. tel:[phone] [facility], [facility], [place], [place], [id number], [place] tel:[phone] [place] No Information Sep- 3 Bhagavatula Ujjwala. [address] [facility] [place], [id number], [place]. tel:[phone] [facility], [address] [facility] [address] [facility], [place], [place], [id number], [place] tel:[phone] [place] Semi-Annua l (chief complaint) Encounter for nutritional assessment Sep- 3 Genia Garcia. 101 [facility], [place], [address]. tel:[phone] [facility], [address] [facility] [address] [facility], [place], [place], [id number], [place] tel:[phone] [place] Semi-Annua l (chief complaint) Primary snoringLung fibrosisPleural [...] kidney disease 3 Maddisonagaevelintula Ujjwala. [address] [place], [id number], [place]. tel:[phone] [facility], [address], [place], [place], [id number], [place] tel:[phone] [place] No Information 3 Juankatie Robertsonn. [address] [place], [place], [id number], [place]. 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 [address] [facility] [place], [id number], [place]. tel:[phone] [facility], [address], [place], [place], [id number], [place] tel:[phone] [place] Shortness of breath 3 Kj Childresswala. [address] [facility] [place], [id number], [place]. tel:[phone] [facility], [address], [place], [place], [id number], [place] tel:[phone] [place] Fall (chief complaint) Leg pain, rightType 2 diabetes mellitus with stage 3a chronic kidney disease, without long-term current use of insulinChronic kidney disease, stage 3a 3 Maddisonagaevelintula Ulambertojwala. [address] [facility] [place], [id number], [place]. tel:[phone] [facility], [address], [place], [place], [id number], [place] tel:[phone] [place] OV (chief complaint) Type 2 diabetes mellitus with stage 3a chronic kidney disease, unspecified whether watermelon harvesting supervisor insulin useChronic kidney disease, stage 3aLong-term (current) use of injectable non-insulin antidiabetic drugs 3 Konstantin Henderson. [address], [place], [place], [id number], [place]. tel:[phone] [facility], [address], [place], [place], [id number], [place] tel:[phone] [place] No Information 3 Konstantin Henderson. [address], [place], [place], [address], [place]. tel:[phone] [facility], [facility] [address] [address], [place], [place], [id number], [place] tel:[phone] [place] No Information 3 Konstantin Henderson. [address], [place], [place], [address], [place]. tel:[phone] [facility], [address], [place], [place], [id number], [place] tel:[phone] [place] Semi-Annua l (chief complaint) Primary snoringSlow transit [...] drugs 3 Kj Womack. [address], [place], [place], [id number], [place]. tel:[phone] [facility], [address], [place], [place], [id number], [place] tel:[phone] [place] Encounter for genera l adult medical examination without abnormal findings 3 Konstantin Henderson. [address], [place], [place], [id number], [place]. tel:[phone] [facility], [address] [facility] [address], [place], [place], [id number], [place] tel:[phone] [place] OV (chief complaint) Hypertensive heart and kidney disease without heart failure and with stage 3a chronic kidney diseaseChronic kidney disease, stage 3a 2 Konstantin Henderson. [address] [facility] [place], [id number], [place]. tel:[phone] [facility], [address] [facility] [address] [facility], [place], [place], [id number], [place] tel:[phone] [place] OV (chief complaint) Hypertensive heart and kidney disease without heart failure and with stage 2 chronic kidney diseaseChronic kidney disease, stage 2 (mild)Type 2 diabetes mellitus with stage 2 chronic kidney disease, without long-term current use of insulinChronic pain of both kneesPain in left kneeOther chronic pain 2 Konstantin Henderson. [address] [place], [id number], [place]. tel:[phone] [facility], [address] [facility] [address] [facility], [place], [place], [id number], [place] tel:[phone] [place] Encounter for genera l adult medical examination without abnormal findings 2 Janny Ellis. [address] [place], [place], [address], [place]. tel:[phone] [facility], [address] [facility] [address] [facility], [place], [place], [address], [place] tel:[phone] [place] Encounter for nutritional assessmentDiabetic nutritional counseling completed 2 Isabel Lyons. [address] [place], [place], [address], [place]. tel:[phone] [facility], [facility], [place], [place], [id number], [place] tel:[phone] [place] Encounter for rehabilitation evaluation 2 Pipo Hightower. [address] [place], [address]. tel:[phone] [facility], [address] [address], [place], [place], [id number], [place] tel:[phone] [place] Encounter for rehabilitation evaluationOther chronic pain 2 Reece Patel. [address] [place], [place], [address], [place]. tel:[phone] [facility], [facility], [place], [place], [id number], [place] tel:[phone] [place] PEE (chief complaint) Coronary artery calcification seen [...] general health examination 2 Juan Child. [address] [place], [place], [id number], [place]. tel:[phone] [facility], [address] [address], [place], [place], [id number], [place] tel:[phone] [place] Encounter for rehabilitation evaluation 2 Reecetheodore Patel. [address] [place], [place], [id number], [place]. tel:[phone] Family History Family Member Type Diagnosis Age [...] type Covered constitution party ID Authoriza tion(s) [facility] 16 [id number] [facility] 16 [id number] [facility] 16 [id number] [facility] 16 [id number] [facility] 16 [id number] Social History Type Description Quantity Date Captured Comments Sex Male Smoking Status No Information Chief Complaint And Reason For Visit No Information Plan Of Treatment Date Type Action Status Referral Ordered: Dentistry (related to Encounter for general health examination) ordered Referral Ordered: Referrals: Dentistry ordered Referral Ordered: Referrals: [facility] [place] [place] Location: [facility] ordered Referral Ordered: Referrals: Podiatry. Evaluate and treat Appointment date/timeframe: 05/04/2023 ordered Referral Ordered: Referrals: [facility]- Appointment date/timeframe: 10/27/2022 ordered Referral Ordered: Referrals: Otolaryngology. Follow-up and treat Appointment date/timeframe: 08/25/2022 ordered Referral Referred To: [facility] Ordered: Referrals: Dentistry. [facility]. Evaluate and treat Appointment date/timeframe: 10/15/2022 ordered [place] [facility] [place]: [place] [facility] [place] and treat Appointment date/timeframe: 10/15/2022 ordered [place] [facility] [place]dered: [place]: [place] [facility] [place] and treat ordered Future Order: Radiology Order Jaqui uriostegui study, unattended ([id number]), Ordered on: Ordered History Of Present Illness Encounter Date Complaint History Of Prese nt Illness Acute Visit PPT is a 77 yr o ld male seen in the clinic with Oma Mosquera MA as oven press tender as PPT is Luxembourgish speaking, seen for respiratory s/sx without cough, States his is coughing and he feels like he is coming down with something. Vitals stable not fever no cough lung sounds clear. He also state that he has not seen the putty and patch worker and that his toe nails are [...] Collective.NO falls documented per SE incident reporting SERVICES/CONSULTANTS:[facility] podiatryOPEN ORDERSHome sleep study - maylin still [...] LFTs normal A1c 5.56/8/23 WBC9.4 H/H 14.3/42 Iri955 BNP 66 Folate 18.1 A1c 5.3 GHC039/25/23 Ktsxxwdq94 %sat42 WPXE402 Na135 K4.3 Mg2.4 Phos3.7 BUN22 Cr1.46 eGFR49 LFTs normal Alb/Cr ratio 985 Ca 8.9 Ionized Ca 5.2 TSH2.34 P63EB121 AUA422 HDL46 OW07603/ Na 140 K4.2 BUN20 Cr1.38 eGFR53 Ca9.511/ Na140 K4.1 BUN22 Cr1.46 eGFR50 Ca9.511/03/10 Na141 K4.2 BUN19 Cr1.37 eGFR53 AST19 ALT10 AP78 Ca9.3 Alb4.1 Tbili 0.4 HBV core Ab reactive, HBV surface Ab reactive, HCV ab non ylpqclrj79/13/22 WBC 11.8 H/H13.7/41.2 Qgo660 Na142 K4.5 BUN17 Cr1 eGFR78 AST36 ALT63 [...] joined SE using januvia and glipizide last ydeyazV4i was 8.8%Dc'd januvia and added Trulicity On [...] Collective.NO falls documented per [facility] incident reporting SERVICES/CONSULTANTS:[facility] podiatryNO OPEN ORDERS OR OPEN DIAGNOSTICS NOTED.Ppt [...] few weeks last month. Per history in [facility], appears ppt had an admission last [...] night and as needed for ambulation. Per [facility] records, he had COVID pneumonia and [...] hernia , however per imaging found [facility] no documentation of a hernia was [...] HCTZ for blood pressure.Labs reviewed. Labs today eopgueo72/27/22 Na 140 K4.2 BUN20 Cr1.38 eGFR53 Ca9. Na140 K4.1 BUN22 Cr1.46 eGFR50 Ca9.511 Na141 K4.2 BUN19 Cr1.37 eGFR53 AST19 ALT10 AP78 Ca9.3 Alb4.1 Tbili 0.4 HBV core Ab reactive, HBV surface Ab reactive, HCV ab non cjjiyirv82/13/22 WBC 11.8 H/H13.7/41.2 Sdq261 Na142 K4.5 BUN17 Cr1 eGFR78 AST36 ALT63 AP70 Tbili0.5 Alb4.5 Ca9.8 Urine Alb/Cr ratio 1268Allergies: NKDAHCP reviewed. Email sent to SW and PN to investigate if paperwork is availableAdvance Directives reviewed.MOLST done: 10/19/22 Full codeLast MoCa: 05/01/22GOC: Longevity Diabetes monitoring: Ppt using Ethan, average 180-200 with some in 50s-60s in the past month. Semi-Annual OV [facility] OV - 17 JUN 2022HPIVisit [...] once weekly injection before I discuss trmayraity I9GFS1b 8.8On glipizide, metformin, JanuviaPpt comes to SE once weeklyPpt is agreeable with TrmayraityWe discuss that I would like him to check his sugars BIDHe cannot write or read He is agreeable to LangoLab systemHTN w/ CKDHctz and LisinoprilCr 1.00GFR 78 / CKD 2BP recheck on room 142/84KNEE OAbilateral hx Cant use cortisone inj due to rxn in pastHe would like to try a topical agent Knees aren't given outALLERGIES No changes vs nextgen ROSno N V F Cno CP SOBno abd pain(+)bilateral knee painPEGen male appearing age NAD very pleasant Heart RRR (+)m7r0viw soft NT with (+)BS in all quadrants, [...] medical records beyond those available in the [facility] system where he had 2 hospitalizations. [...] plaque. He tells me he saw a senior data scientist in [place] in the past although does not recall [...] we learned he [facility] [place] [facility] [...] timeSocial history:Never smoked neverNever drank appreciablyBorn in [place], came to [place] until he rests roughly 55 years agoMarried for 5-6 decades.Adult son living in [place]. Several grandchildren living locally. Daughter who I believe lives locally .Patient worked in [employer] and then [employer] FinanceFunctional history:Needs assistance with lower body bathing and dressingAbility to manage medications limited by illiteracyRarely uses walker or caneFall only in the context of his acute illness [facility] Instructions Date Instruction [...] without long-term current use of insulin 12/11/22 FRD053 TG194 HDL46 CH180- lipid panel today Related [...] disease (CKD) 12/25/22 WBC9.4 H/H 14 .3/42 Uan714 Folate 18.1 12/11/22 Iizjxavw27 %sat42 JOJO286 repeat labs ordered Related to H/O macrocytic [...] 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 Ppt previously saw a senior data scientist per ppt at [place], still do not have records despite requesting. [...] with CMP- Ethan to be sent to [facility] for changing q14 days Related to [...] with CMP- Ethan to be sent to [facility] for changing q14 days Related to [...] stage 3a chronic kidney disease, unspecified whether watermelon harvesting supervisor insulin use Ppt BP noted to be [...] Urine Alb/C r ratio 1268 A1c 8.8Per [facility] records ppt had a generalized seizure last [...] metformin and trulicity per conversation with endocrine RADIO HOST at [facility]- Labs today Related to Type 2 diabetes mellitus with stage 3a chronic kidney disease, without long-term current use of insulin 07/15/22 BUN20 Cr1.3 8 wUQX6406/22/22 BUN22 Cr1.46 eGFR50 05/27/22 BUN19 Cr1.37 eGFR53 05/01/22 BUN17 Cr1 eGFR78 Labs today, as the previous 3 test results have been stable Related to Stage 3a chronic kidney disease (CKD) 05/01/22 WBC 11.8 H/ H13.7/41.2 Pfc214 Labs today Related to H/O macrocytic anemia [...] 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 Ppt previously saw a senior data scientist per ppt at [place], still do not have records. Will alert [...] doesnt want to leave his alone, per [facility] records, no TTE noted in the past. [...] known asbestosis. He alludes to having a senior data scientist in [place]. We do not currently have any information about this-Await medical records -Consider referral to [facility] pulmonary given his overall goalslikely needs dedicated CT chest Related to Pleural calcification Had status epileptic us in 2021 with [facility] admission. He is not on [...] with his renal function Related to intermodal customer service (current) use of oral hypoglycemic drugs Patient [...] curious assuming strict type 2 diabetes.-Check hemoglobin X2x-Bhkpw urine microalbumin-He is on ELIA inhibitor, would continue the lisinopril-Depending on results of the A1c will adjust medication regimen-Given cognition and difficulties with medication aiming to avoid insulin-Seeing luis armando (Rtia Chavarria)next week per service fdzxoelfx-Zwayymcu-Dhydaxdk Optometry here Related to Type 2 diabetes [...]
--- OUTSIDE RECORDS SUMMARY | 2024-08-30 09:30 | XMS_ITS ---
Author Organization [facility] bianca [place] Address [address] [place] [address] Care Team Providers Care Certified Alcohol Drug Counselor Name Role Phone Pilar GASTELUM, Gaby Primary Care Provider Unavail able Nika Fuller Unavailable [phone] Tommy Eli [phone] Encounters Encounter Location Date Provider Diagnosis [address] [address] 08/30/2024 Tommy Eli Plan Of Treatment Next Appt Details Provider Name:Nika hinojosa, 06/01/2025 02:45:00 PM, [address] [place], [address], Progress Notes * Tyree LAFLEURDOB:1945 (79 yo M)Acc No.[id number]:08/30/2024 Progress Note Patient: Tyree WEBB Provider: Jammie Eli D.P.M. :1945 A ge:78 Y S ex:Male Date:08/30/2024 Address:[address] [place] [address], [address], [place], [place] Pcp:Gaby Quezada MD Subjective: * Chief Complaints: [...] 0 08/30/2024 Generated for Nawaf dent/Vannessa/Von on: 0 03/27/2025 06:04 PM EDT
--- OUTSIDE RECORDS SUMMARY | 2025-02-23 11:15 | XMS_ITS ---
Author Organization [facility] Address [address] [place] [address] Care Team Providers Care Hand Rug Braider Name Role Phone Pilar GASTELUM, Gaby Primary Care Provider Unavail able Nika Fuller Unavailable [phone] Allergies Allergen (clinical drug ingredient) Drug/Non Drug [...] Active Encounters Encounter Location Date Provider Diagnosis [facility] [address] 02/23/2025 Nika Fuller Type 2 diabetes mellitus [...] Reason: Provider Name:Nika hinojosa, 06/01/2025 02:45:00 PM, [address] [place] [address], [place], [address], Procedure Notes * Category Sub-Category Detail Notes [...] use of a nail nipper and/or dremel-type rotary surface grinder, to a more viable healthy nail plate [...] to maintain effectiveness in symptomatic relief - 32723 Keratoma Treatment Parring or Cutting o f [...] instrumentation by the physician of record - 87621 Progress Notes * Tyree LAFLEURDOB:1945 (79 yo M)Acc No.[id number]:02/23/2025 Progress Note Patient: Tyree WEBB Provider: Tony Fuller DPM :1945 A ge:79 Y S ex:Male Date:02/23/2025 Address:[address] [place] [address] Pcp:Gaby Quezada MD Subjective: * Chief Complaints: [...] use of a nail nipper and/or dremel-type rotary surface grinder, to a more viable healthy nail plate [...] to maintain effectiveness in symptomatic relief - 86170. K eratoma Treatment: Parring or Cutting of [...] instrumentation by the physician of record - 28587. * Procedure Codes: 1 1721 DEBRIDE NAIL, 6 OR MORE, Modifiers: XS , 91174 TRIM SKIN LESIONS, 2 TO 4, Modifiers: [...] 0 02/23/2025 Generated for Nawaf dent/Vannessa/Von on: 0 03/27/2025 06:04 PM EDT History and Physical Notes * HPI (History [...]
--- NOTE | 2025-03-27 15:17 | MHC.OFFVIS ---
Intake Visit Reasons: injection teaching Intake Note: Patient is present for INJECTION TEACHING Urology Medication:NONE Antibiotic Allergy:NONE Blood Thinner:NONE Display Fabrication Supervisor Required: No Allergies cortisone Adverse Reaction (Intermediate, Verified 03/27/25 21:21) Cough Medication List - Last Reconciled 03/27/25 by CAMRON Cutler-GEOVANI Advair Diskus 250-50 mcg/dose (fluticasone propion-salmeterol) 1 inh inhalation BID NS amlodipine 10 mg PO DAILY 90 days aspirin 1 tab PO DAILY 90 days blood pressure test kit-large (Advocate Blood Pressure Monitor kit) As directed blood sugar diagnostic ([employer] Ultra Test strips) Use to check blood sugar once a day blood-glucose meter ([employer] Ultra2 Meter) As directed chlorthalidone 50 mg PO DAILY 90 days cholecalciferol (vitamin D3) 25 mcg PO DAILY 90 days docusate sodium (Colace) 100 mg PO DAILY PRN dulaglutide (Trulicity) 0.75 mg (0.5 mL) subcut QWEEK 90 days gabapentin 300 mg PO BEDTIME 90 days glimepiride 4 mg PO DAILY 90 days glipizide 10 mg PO DAILY 90 days hydralazine 10 mg PO TID 30 days hydrochlorothiazide 50 mg PO DAILY lancets (RABTTouch Delica Lancets) Use to check blood sugars once a day levetiracetam 1,000 mg (2 x 500 mg) PO BID 30 days linagliptin (Tradjenta) 5 mg PO DAILY 90 days lisinopril 40 mg PO DAILY 90 days metformin 1,000 mg PO BID 90 days miscellaneous medical supply As directed omeprazole 20 mg PO DAILY simvastatin 40 mg PO BEDTIME 90 days [Trapeze bar As directed] [wheelchair As directed] HPI Comments Details: Tyree is a 79-year-old male patient of Dr. Villafuerte. He has a past medical history of seizures, microalbuminuria, oxygen dependency treated for nocturia hypoxemia, GERD, diabetes, lumbar degenerative disc disease, hypercholesteremia, and hypertension. He presents to the office today for follow-up of his erectile dysfunction. In discussion with the patient today he reports a longstanding history of erectile dysfunction and having trialed many different oral medications without improvement in obtaining and or maintaining his erections. He reports previously following up with Dr. Yandel Ramos in recommendations were made for Education regarding penile injection therapy. We did discussed at length potential causes of ED as well as further treatment options and risks and benefits of these treatment options. All questions were answered. In review of patient's chart it appears labs are as follows: A1c: 09/10 9.9, 02/07 71, 01/10 6.7,06/12 5.4 PSA: 02/09 3.6 In office urinalysis results reviewed with the patient today 3+ proteinuria. He denies any establish care with Nephrology. We did discussed importance in doing so. We did discussed at length the importance of management and diabetes for improvement in ED as well as overall health and well-being. Information and education was provided regarding penile injection therapy. He would like to proceed in doing so. He otherwise denies any bothersome urinary issues. He denies urinary urgency, urinary frequency, incontinence, nocturia, hematuria, dysuria, foul smelling urine, changes to urinary stream, flank pain, fever, and or chills. He is happy with his current voiding parameters. PREVIOUS OFFICE NOTE: Previous attempts to manage this condition included the use of Viagra three months ago, which was not effective in improving his erectile function. The patient's extensive medication regimen includes treatment for diabetes mellitus, which he continues to manage concurrently with his erectile dysfunction. He reports no improvement in his erectile function despite medication trials. We discussed the management of the patient's erectile dysfunction, emphasizing the use of a daily low dose of Cialis (tadalafil) at 5 mg, which may take up to three months to become effective. We discussed introducing a higher dose of 20 mg tadalafil for use before intercourse, not to exceed twice weekly, to enhance erectile function. Alternative treatment options were discussed, including injections and surgical interventions such as a penile pump if medication remains ineffective. [facility] Medical History Seizures Microalbuminuria Post-COVID chronic dyspnea Oxygen dependent GERD (gastroesophageal reflux disease) Diabetes mellitus Lumbar degenerative disc disease Pure hypercholesterolemia Essential hypertension Surgical History S/P matrixectomy of toe History of cervical spinal surgery Family History Father No problems noted. Mother No problems noted. Social History Housing: Apartment Alcohol intake: never Patient Tobacco Use Status: Never used Tobacco e-Cigarette/Vaping Use: Never Used Second Hand Smoke Exposure: No service: No Current occupational status: retired and disabled Current occupational exposures/hazards: No Cognitive needs: No Hearing needs: No Vision needs: Yes Review of Systems Const All systems reviewed & are unremarkable except as noted in HPI and below Physical Exam Const General: cooperative, comfortable, no acute distress, well developed, alert and awake Orientation/consciousness: patient oriented x3 HEENT Head: Yes normal to inspection, Yes normocephalic and Yes atraumatic Ears: hearing grossly normal bilaterally Eyes General: appearance normal, both eyes and all related structures Neck Neck: Yes normal visual inspection and Yes trachea midline Chest Chest palpation & inspection: normal inspection of the chest Resp Effort & Inspection: normal respiratory effort and able to speak in complete sentences Cardio Rate: regular rate GI Inspection: Yes normal to inspection General: Yes no CVA tenderness Back/Spine/Pelvis Back: no CVA tenderness Skin General skin exam: no rashes or lesions noted Neuro General: patient oriented x3 Extrem General: Yes normal to inspection Psych Appearance: grossly normal and well kempt Mental Status: mental status grossly normal Speech and movement: Normal speech and movement present and Clear speech present Affect: normal affect Attitude: cooperative Thought process: Normal thought process present Thought content: Normal thought content present Insight: Fair insight present (Psych) Judgement: Fair judgement present (Psych) Results AMB Urinalysis, Automated UA Leukoctes 0 Jacky/uL Last Edit by AUBREY Vazquze on 03/27/25 16:34 UA Nitrite Negative Last Edit by AUBREY Vazquez on 03/27/25 16:34 UA Urobilinogen 0.2 mg/dL Last Edit by AUBREY Vazquez on 03/27/25 16:34 UA Protein 300 mg/dL Last Edit by AUBREY Vazquez on 03/27/25 16:34 UA pH 7.5 Last Edit by AUBREY Vazquez on 03/27/25 16:34 UA Blood 10 Darren/uL Last Edit by AUBREY Vazquez on 03/27/25 16:34 UA Specific [place]mont 1.015 Last Edit by AUBREY Vazquez on 03/27/25 16:34 UA Ketone Negative Last Edit by AUBREY Vazquez on 03/27/25 16:34 UA Bilirubin 0 mg/dL Last Edit by AUBREY Vazquez on 03/27/25 16:34 UA Glucose 250 mg/dL Last Edit by AUBREY Vazquez on 03/27/25 16:34 Results Reviewed Results Reviewed: Laboratory Last Values Urine pH (Auto) 7.5 03/27/25 16:33 Specific [place] (Auto) 1.015 03/27/25 16:33 Urine Protein (Auto) 300 mg/dL 03/27/25 16:33 Glucose (UA)(Auto) 250 mg/dL 03/27/25 16:33 Urine Ketones (Auto) Negative 03/27/25 16:33 Urine Blood (Auto) 10 Darren/uL 03/27/25 16:33 Urine Nitrite (Auto) Negative 03/27/25 16:33 Urine Bilirubin (Auto) 0 mg/dL 03/27/25 16:33 Urine Urobilinogen (Auto) 0.2 mg/dL 03/27/25 16:33 Leukocyte Esterase (Auto) 0 Jacky/uL 03/27/25 16:33 Assessment & Plan Assessment & Plan (1) Proteinuria: Code(s): R80.9 - Proteinuria, unspecified Category: Medical (2) Erectile dysfunction associated with type 2 diabetes mellitus: Code(s): E11.69 - Type 2 diabetes mellitus with other specified complication; N52.1 - Erectile dysfunction due to diseases classified elsewhere Category: Medical Plan In office urinalysis results reviewed with the patient today; as noted above; will refer to Nephrology for proteinuria. We did discussed at length potential causes of ED as well as further treatment options and risks and benefits of these treatment options. All questions were answered. He currently denies any bothersome urinary issues or concerns. He reports be happy with current voiding parameters. We did discussed at length importance of lifestyle modifications. Penile injection therapy was discussed; information provided. Will arrange for TriMix therapy. Follow-up once medication is received to review and provide Education teaching regarding penile injection therapy; or sooner with any issues, concerns, and or questions. Orders: Orders AMB Urinalysis Automated Today Z13.9 - Encounter for screening, unspecified Referrals Nephrology Referral R80.9 - Proteinuria, unspecified Patient Instructions: The patient had an opportunity to ask questions regarding the treatment plan. All questions were answered. Physical exam, labs, and imaging were discussed and reviewed in detail. As well as risks, benefits, and discussion of treatment choices. No major barriers to understanding were identified. The patient expressed understanding and agreement with the above treatment plan. The patient was made aware they should contact our office by phone for worsening of their current condition, the appearance of new symptoms, or with any questions or concerns. Compliance is encouraged with any medications and follow up testing that is ordered. It is a privilege to be allowed the opportunity to participate in? your urological care.? Again, if you have any questions or concerns If you have any questions or concerns please do not hesitate to contact me. The office is [phone]. This note is constructed using voice recognition software. While every effort has been made to ensure accuracy sugarcane planter errors may have been included. Yours sincerely, ALAYNA Cutler Coding Level of Care Code Est Pt Level 3 (03687) Complex EM visit Add On G2211 Diagnoses Proteinuria R80.9 Erectile dysfunction associated with type 2 diabetes mellitus E11.69; N52.1
--- OUTSIDE RECORDS SUMMARY | 2025-03-27 18:05 | XMS_ITS | Patient Health Record ---
Author Organization [facility] Address [address] [place] [address] Care Team Providers Care Architectural Project Manager Name Role Phone Pilar GASTELUM, Gaby Primary Care Provider Unavail able Nika Fuller Unavailable [phone] Tommy Eli Unavailable [phone] Allergies Allergen (clinical drug ingredient) Drug/Non Drug [...] Duration) Notes Start Date End Date Status GoodSense Aspirin 81 MG Oral; Duration: 30 Days Active GoodSense Aspirin 81 MG Oral; Duration: 30 Days Active Lisinopril 20 MG Oral; Duration: 30 Days Not-Taking Gabapentin 300 MG Oral; Duration: 30 Days Active Trulicity 0.75 MG/0.5ML Subcutaneous; Du ration: 28 Days Active Tradjenta 5 MG Oral; Duration: 30 Days Active amLODIPine Besylate 10 MG Oral; Duration: 30 Days Acti ve Lisinopril 30 MG Oral; Duration: 30 Days Not-Taking amLODIPine Besylate 10 MG Oral; Duration: 30 Days Acti ve Extra Depth Orthopedic Shoes, (1) Pair With (3) Pair Custom Heat Molded Multidensity Innersoles Dx: NIDDM/PVD(E11.51), Hammertoe Foot Deformity(M20.41,M20.42) , Preulcerative Skin Lesion(s)(L85.1) Wear Daily; Duration: 365 days Active Glimepiride 4 MG Oral; Duration: 30 [...] 1000 MG Oral; Duration: 30 Days Active Lisinopril 40 MG Oral; Duration: 30 Days Active Gabapentin 300 MG Oral; Duration: 30 Days Active Simvastatin 40 MG Oral; Duration: 30 Days Active Lisinopril 40 MG Oral; Duration: 30 Days Active Lisinopril 20 MG Oral; Duration: 30 Days Not-Taking Lisinopril 30 MG Oral; Duration: 30 Days Not-Taking Social History Tobacco Use: Social History Observation [...] Problem Acquired hammer toe of right foot (5784168045529 105) Other hammer toe(s) (acquired), right foot (M20.41) Active confirmed Problem Type 2 diabetes mellitus with peripheral angiopathy (159279434) Type 2 diabetes mellitus with diabetic peripheral angiopathy without gangrene (E11.51) Active confirmed Q7(A), Q8(2B), Q9(1B,2C) Problem Acquired hammer toe of left foot (9574737930098 103) Other hammer toe(s) (acquired), left foot (M20.42) Active confirmed Vital Signs Blood pressure diastolic 70 mm Hg 12/15/2024 Height 5ft 8in in 12/15/2024 Blood pressure systolic 133 mm Hg 12/15/2024 Weight 180 lbs 12/15/2024 BMI 27.37 kg/m2 12/15/2024 Procedures Procedure Date Ordered Date Performed Result Body Sit e 62614-VFCPAQX NAIL, 6 OR MORE 06/21/2024 N/A [id number]-[id number] NAIL, 6 OR MORE 09/29/2024 N/A Encounters Encounter Location Date Provider Diagnosis [address] [address] 06/21/2024 Tommy Eli Type 2 diabetes mellitus with diabetic peripheral angiopathy without gangrene E11.51 ; Tinea unguium B35.1 ; Pain in right toe(s) M79.674 and Pain in left toe(s) M79.[address] [address] 09/29/2024 Tommy Eli Controlled type 2 diabetes mellitus with diabetic polyneuropathy, without long-term current use of insulin E11.42 and Tinea unguium B35.[address] [address] 12/15/2024 Nika Fuller Type 2 diabetes mellitus with diabetic peripheral angiopathy without gangrene E11.51 ; Tinea unguium B35.1 ; Pain in right toe(s) M79.674 ; Pain in left toe(s) M79.675 ; Other hammer toe(s) (acquired), left foot M20.42 and Other hammer toe(s) (acquired), right foot M20.[address] [address] 08/01/2024 Tommy Eli [address] [address] 2024 Tommy Eli Assessments Encounter Date Diagnosis [...] gangrene (ICD-10 - E11.51) Q7(A), Q8(2B), Q9(1B,2C) 12/15/2024 Tinea unguium (ICD-10 - B35.1) 06/21/2024 Pain in right toe(s) (ICD-10 - M79.674) 09/29/2024 Tinea unguium (ICD-10 - B35.1) 06/21/2024 Pain in left toe(s) (ICD-10 - M79.675) 12/15/2024 Pain in right toe(s) (ICD-10 - M79.674) 12/15/2024 Pain in left toe(s) (ICD-10 - M79.675) 12/15/2024 Other hammer toe(s) (acquired), left foot (ICD-10 - M20.42) 12/15/2024 Other hammer toe(s) (acquired), right foot (ICD-10 - M20.41) Patient Educated with: DIABETIC FOOT CARE INSTRUCTIONS.p df (DIABETIC FOOT CARE INSTRUCTIONS.p df) Plan Of Treatment Pending Test Test Name Order Date [id number] NAIL, 6 OR MORE 06/21/2024 [id number] NAIL, 6 OR MORE 09/29/2024 Next Appt Details Provider Name:Nika hinojosa, 06/01/2025 02:45:00 PM, [address] [facility], [place], [address], Insurance Providers Payer Name Payer Address Payer Phone Subscriber Number Group Number Insured Name Patient Relationship to Insured Coverage Start Date Coverage End Date [facility] [employer] Claims [address] [place] [id number] [phone] [id number] Tyree Lafleur Self - patient is the insured Medical (General) History Medical History History ICD Code Arthritis asthma Back,Hip,and Knee pain Broken bones Cataracts covid-19 Dementia type II diabetes High Blood Pressure Chicken pox Joint implants/screws eye injections Surgical History Surgery Date(Month/Year) bone implant 1970
== END 2025-03-27 16:43 | disposition home or self-care (01) ==
LOC: HO.HUSH 14:48
PROVIDERS: PCP Internal Medicine; Visit Provider Nurse Practitioner Family
DX: R80.9 Proteinuria, unspecified (principal); E11.69 Type 2 diabetes mellitus with other specified complication; N52.1 Erectile dysfunction due to diseases classified elsewhere; Z13.9 Encounter for screening, unspecified
CPT/HCPCS: 99213; G2211

== ENCOUNTER → 2025-03-27 14:48 | Outpatient (BNVA) | payer OTHER, SELFPAY | PROVIDERS: PCP Internal Medicine; Visit Provider Nurse Practitioner Family | DX: E11.69 Type 2 diabetes mellitus with other specified complication (principal); N52.1 Erectile dysfunction due to diseases classified elsewhere; R80.9 Proteinuria, unspecified | CPT/HCPCS: 81003; 99212 ==

== ENCOUNTER 2025-04-12 11:25 | Outpatient (REF) | payer OTHER, SELFPAY ==
[2025-04-12 18:27] LABS: Appearance Urine Clear; Glucose Urine UA 250 mg/dL (Negative); PH 6.5 (5.0-9.0); Specific Gravity - Urine 1.020 (1.005-1.025); UMIC TRIGGER UA YES
[2025-04-12 18:30] LABS: Hematocrit 34.3 % (42.0-52.0); Hemoglobin 12.0 g/dl (14.0-18.0); Mean Corpuscular HGB Conc 35.0 g/dl (31.0-36.0); Mean Corpuscular Hemoglobin 34.4 pg (27.0-33.0); Mean Corpuscular Volume 98.3 fL (80.0-98.0); NRBC Abs Auto 0.000 X10*3/uL (0.0-0.012); NRBC Pct Auto 0.0 /100WBC (0.0-0.2); Platelet Count 228 X10*3/uL (160-400); Red Blood Count 3.49 X10*6/uL (4.60-5.80); White Blood Count 8.7 X10*3/uL (4.8-10.8)
[2025-04-12 18:39] LABS: Anion Gap 13 (12-20); Blood Urea Nitrogen 31 mg/dL (9-16); Calcium 8.9 mg/dL (8.4-10.2); Carbon Dioxide 25 mmol/L (22-29); Chloride 108 mmol/L (96-108); Estimated Glomerular Filt Rate 26; Potassium 3.8 mmol/L (3.3-5.1); Sodium 142 mmol/L (135-145)
[2025-04-12 19:48] LABS: Total Protein Urine Random 456 mg/dL (<12)
[2025-04-14 11:18] LABS: Anti Nuclear Antibody Screen NEGATIVE (NEGATIVE)
[2025-04-17 19:07] LABS: Prot Elec - Albumin 3.7 g/dL (3.8-4.8); Prot Elec - Alpha1 0.3 g/dL (0.2-0.3); Prot Elec - Alpha2 0.8 g/dL (0.5-0.9); Prot Elec - Beta 1 0.4 g/dL (0.4-0.6); Prot Elec - Beta 2 0.5 g/dL (0.2-0.5); Prot Elec - Gamma 1.1 g/dL (0.8-1.7); Prot Elec - Total Protein 6.8 g/dL (6.1-8.1)
== END 2025-04-12 11:26 | disposition home or self-care (01) ==
LOC: HO.HKASLDS 11:25
PROVIDERS: PCP Internal Medicine; Referring Provider Nurse Practitioner Family; Visit Provider Internal Medicine Hypertension Specialist
DX: N18.9 Chronic kidney disease, unspecified (principal); R80.9 Proteinuria, unspecified; Z01.84 Encounter for antibody response examination; Z79.899 Other long term (current) drug therapy
CPT/HCPCS: 36415; 80048; 81001; 82570; 84156; 84165; 85027; 86038; 86160; 99202

== ENCOUNTER 2025-04-12 11:25 | Outpatient (AMB) | payer OTHER, SELFPAY ==
--- OUTSIDE RECORDS SUMMARY | 2024-01-07 10:17 | XMS_ITS | Continuity of Care Document ---
Author Organization [facility] Address [address] [address] Phone Care Team Providers Care Sole Stitcher Hand Name Role Phone Hollis BECKER, Martha Unavailable [...] use as directed - Active DELIVER TO [facility] [address] Trulicity 1.5 mg/0.5 [...] Active DELIVER TO HOME FreeStyle Ethan 2 Mccammon use as directed - Active PLEASE DELIVER TO HOME Prevnar 20 (PF) 0.5 mL intramuscular syringe inject 0.5 milliliter by intramuscular route once 0.50 milliliter - Active Please deliver to site in [place] Advance Directives Directive Yes / No Effective Date File Name No Information Encounters Encounter Description Practice Location Reason(s) For Visit Diagnoses Date Provider [facility], [address] [place] [address], [place], [place], [id number], [place] tel:[phone] [place] No Information 4 [facility]. [address], [place], [place], [id number], [place]. tel:[phone] [facility], [address], [place], [place], [id number], [place] tel:[phone] [place] No Information 4 [facility]. [address] [place], [place], [id number], [place]. tel:[phone] [facility], [address], [place], [place], [id number], [place] tel:[phone] [place] Acute Visit (chief complaint) Illness, unspecifiedLong toenail 4 [facility]. [address] [place], [place], [id number], [place]. tel:[phone] [facility], [address], [place], [place], [id number], [place] tel:[phone] [place] Encounter for [facility] adult medical examination without abnormal findings 4 [facility]. [address] [place], [place], [id number], [place]. tel:[phone] [facility], [address], [place], [place], [id number], [place] tel:[phone] [place] No Information 3 Bhagavatula Ujjwala. [address] [place], [place], [id number], [place]. tel:[phone] [facility], [address], [place], [place], [id number], [place] tel:[phone] [place] No Information 3 Bhagavatula Ujjwala. [address] [place], [place], [id number], [place]. tel:[phone] [facility], [address], [place], [place], [id number], [place] tel:[phone] [place] No Information 3 Bhagavatula Ujjwala. [address] [place], [place], [id number], [place]. tel:[phone] [facility], [address], [place], [place], [id number], [place] tel:[phone] [place] Encounter for rehabilitation evaluation 3 Ellie Nesbitt. [address] [place], [id number], [place]. tel:[phone] [facility], [address], [place], [place], [id number], [place] tel:[phone] [place] Type 2 diabetes mellitus with stage 3b chronic kidney disease, without long-term current use of insulinChronic kidney disease, stage 3b 3 Bhagavatula Ujjwala. [address] [place], [id number], [place]. tel:[phone] [facility], [address], [place], [place], [id number], [place] tel:[phone] [place] No Information 3 Bhagavatula Ujjwala. [address] [place], [id number], [place]. tel:[phone] [facility], [address], [place], [place], [id number], [place] tel:[phone] [place] No Information 3 Bhagavatula Ujjwala. [address] [place], [id number], [place]. tel:[phone] [facility], [address], [place], [place], [id number], [place] tel:[phone] [place] Stage 3a chronic kid gifty disease (CKD)Type 2 diabetes mellitus with stage 3b chronic kidney disease, without long-term current use of insulinChronic kidney disease, stage 3b 3 Bhagavatula Ujjwala. [address] [facility], [place], [place], [id number], [place]. tel:[phone] [facility], [address], [place], [place], [id number], [place] tel:[phone] [place] Encounter for rehabilitation evaluation Sep-2 3 Avni Correa. [address] [place], [place], [id number], [place]. tel:[phone] [facility], [address], [place], [place], [id number], [place] tel:[phone] [place] Encounter for rehabilitation evaluation Sep-2 3 Bryce Wright. [address] [place], [place], [id number], [place]. tel:[phone] [facility], [facility], [place], [place], [id number], [place] tel:[phone] [place] No Information Sep- 3 Bhagavatula Ujjwala. [address] [facility] [place], [id number], [place]. tel:[phone] [facility], [address] [facility], [place], [place], [id number], [place] tel:[phone] [place] Semi-Annua l (chief complaint) Encounter for nutritional assessment Sep- 3 Genia Garcia. 101 [facility], [place], [address]. tel:[phone] [facility], [address] [facility], [place], [place], [id number], [place] tel:[phone] [place] Semi-Annua l (chief complaint) Primary snoringLung fibrosisPleural [...] kidney disease 3 Maddisonagaevelintula Ujjwala. [address], [id number], [place]. tel:[phone] [facility], [address], [place], [place], [id number], [place] tel:[phone] [place] No Information 3 Juankatie Robertsonn. [address] [place], [place], [id number], [place]. 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 [address] [facility] [place], [id number], [place]. tel:[phone] [facility], [address], [place], [place], [id number], [place] tel:[phone] [place] Shortness of breath 3 Kj Childresswala. [address] [facility] [place], [place], [id number], [place]. tel:[phone] [facility], [address], [place], [place], [id number], [place] tel:[phone] [place] Fall (chief complaint) Leg pain, rightType 2 diabetes mellitus with stage 3a chronic kidney disease, without long-term current use of insulinChronic kidney disease, stage 3a 3 Maddisonagaevelintula Ulambertojwala. [address] [facility] [place], [id number], [place]. tel:[phone] [facility], [address], [place], [place], [id number], [place] tel:[phone] [place] OV (chief complaint) Type 2 diabetes mellitus with stage 3a chronic kidney disease, unspecified whether extermination inspector insulin useChronic kidney disease, stage 3aLong-term (current) use of injectable non-insulin antidiabetic drugs 3 Konstantin Henderson. [address], [place], [place], [id number], [place]. tel:[phone] [facility], [address], [place], [place], [id number], [place] tel:[phone] [place] No Information 3 Konstantin Henderson. [address], [place], [place], [id number], [place]. tel:[phone] [facility], [address], [place], [place], [id number], [place] tel:[phone] [place] No Information 3 Konstantin Henderson. [address], [place], [place], [id number], [place]. tel:[phone] [facility], [address], [place], [place], [id number], [place] tel:[phone] [place] Semi-Annua l (chief complaint) Primary snoringSlow transit [...] drugs 3 Kj Womack. [address], [place], [place], [id number], [place]. tel:[phone] [facility], [address], [place], [place], [id number], [place] tel:[phone] [place] Encounter for genera l adult medical examination without abnormal findings 3 Konstantin Henderson. [address], [place], [place], [id number], [place]. tel:[phone] [facility], [address], [place], [place], [id number], [place] tel:[phone] [place] OV (chief complaint) Hypertensive heart and kidney disease without heart failure and with stage 3a chronic kidney diseaseChronic kidney disease, stage 3a 2 Konstantin Henderson. [address] [facility] [place], [id number], [place]. tel:[phone] [facility], [address] [facility], [place], [place], [id number], [place] tel:[phone] [place] OV (chief complaint) Hypertensive heart and kidney disease without heart failure and with stage 2 chronic kidney diseaseChronic kidney disease, stage 2 (mild)Type 2 diabetes mellitus with stage 2 chronic kidney disease, without long-term current use of insulinChronic pain of both kneesPain in left kneeOther chronic pain 2 Konstantin Henderson. [address] [place], [address], [place]. tel:[phone] [facility], [address] [facility], [place], [place], [id number], [place] tel:[phone] [place] Encounter for genera l adult medical examination without abnormal findings 2 Janny Ellis. [address] [place], [place], [address], [place]. tel:[phone] [facility], [address] [facility], [place], [place], [id number], [place] tel:[phone] [place] Encounter for nutritional assessmentDiabetic nutritional counseling completed 2 Isabel Lyons. [address] [place], [place], [address], [place]. tel:[phone] [facility], [facility], [place], [place], [id number], [place] tel:[phone] [place] Encounter for rehabilitation evaluation 2 Pipo Hightower. [address] [place], [address]. tel:[phone] [facility], [address] [address], [place], [place], [id number], [place] tel:[phone] [place] Encounter for rehabilitation evaluationOther chronic pain 2 Reece Patel. [address] [place], [place], [id number], [place]. tel:[phone] [facility], [facility], [place], [place], [id number], [place] tel:[phone] [place] PEE (chief complaint) Coronary artery calcification seen [...] general health examination 2 Juan Child. [address] [place], [place], [id number], [place]. tel:[phone] [facility], [address] [address], [place], [place], [address], [place] tel:[phone] [place] Encounter for rehabilitation evaluation 2 Reecetheodore Patel. [address] [place], [place], [id number], [place]. tel:[phone] Family History Family Member Type Diagnosis Age [...] Record Payers Payer name Insurance type Covered constitution party ID Authoriza tion(s) [facility] 16 [id number] [facility] 16 [id number] [facility] 16 [id number] [facility] 16 [id number] [facility] 16 [id number] Social History Type Description Quantity Date Captured Comments Sex Male Smoking Status No Information Chief Complaint And Reason For Visit No Information Plan Of Treatment Date Type Action Status Referral Ordered: Dentistry (related to Encounter for general health examination) ordered Referral Ordered: Referrals: Dentistry ordered Referral Ordered: Referrals: [facility] [place] Location: [facility] ordered Referral Ordered: Referrals: Podiatry. Evaluate and treat Appointment date/timeframe: 05/04/2023 ordered Referral Ordered: Referrals: [facility] Appointment date/timeframe: 10/27/2022 ordered Referral Ordered: Referrals: Otolaryngology. Follow-up and treat Appointment date/timeframe: 08/25/2022 ordered Referral Referred To: [facility] Ordered: Referrals: Dentistry. [facility]. Evaluate and treat Appointment date/timeframe: 10/15/2022 ordered Referral Referred To: [facility] [place] Ordered: Referrals: Automobile Repossessor. [facility]. Evaluate and treat Appointment date/timeframe: 10/15/2022 ordered Referral Referred To: [facility] Ordered: Referrals: Podiatry. [facility]. Evaluate and treat ordered Future Order: Radiology Order Jaqui uriostegui study, unattended ([id number]), Ordered on: Ordered History Of Present Illness Encounter Date Complaint History Of Prese nt Illness Acute Visit PPT is a 77 yr o ld male seen in the clinic with Oma Mosquera MA as ear pull machine operator as PPT is Kazakh speaking, seen for respiratory s/sx without cough, States his is coughing and he feels like he is coming down with something. Vitals stable not fever no cough lung sounds clear. He also state that he has not seen the division leader and that his toe nails are catching [...] Collective.NO falls documented per [facility] incident reporting SERVICES/CONSULTANTS:[facility] podiatryOPEN ORDERSHome sleep study - maylin still [...] LFTs normal A1c 5.56/8/23 WBC9.4 H/H 14.3/42 Use395 BNP 66 Folate 18.1 A1c 5.3 LKL140/25/23 Qdzirhot58 %sat42 PHOJ797 Na135 K4.3 Mg2.4 Phos3.7 BUN22 Cr1.46 eGFR49 LFTs normal Alb/Cr ratio 985 Ca 8.9 Ionized Ca 5.2 TSH2.34 O18EA857 CTN560 HDL46 FT41712/ Na 140 K4.2 BUN20 Cr1.38 eGFR53 Ca9.511/ Na140 K4.1 BUN22 Cr1.46 eGFR50 Ca9.511/03/10 Na141 K4.2 BUN19 Cr1.37 eGFR53 AST19 ALT10 AP78 Ca9.3 Alb4.1 Tbili 0.4 HBV core Ab reactive, HBV surface Ab reactive, HCV ab non /13/22 WBC 11.8 H/H13.7/41.2 Yxq446 Na142 K4.5 BUN17 Cr1 eGFR78 AST36 ALT63 [...] joined SE using januvia and glipizide last abvqulS4j was 8.8%Dc'd januvia and added Trulicity On [...] Collective.NO falls documented per [facility] incident reporting SERVICES/CONSULTANTS:[facility] podiatryNO OPEN ORDERS OR OPEN DIAGNOSTICS NOTED.Ppt [...] few weeks last month. Per history in [facility], appears ppt had an admission last week [...] night and as needed for ambulation. Per [facility] records, he had COVID pneumonia and required [...] hernia , however [facility] no documentation of a hernia was [...] HCTZ for blood pressure.Labs reviewed. Labs today jmbayas08/27/22 Na 140 K4.2 BUN20 Cr1.38 eGFR53 Ca9. Na140 K4.1 BUN22 Cr1.46 eGFR50 Ca9.511 Na141 K4.2 BUN19 Cr1.37 eGFR53 AST19 ALT10 AP78 Ca9.3 Alb4.1 Tbili 0.4 HBV core Ab reactive, HBV surface Ab reactive, HCV ab non /13/22 WBC 11.8 H/H13.7/41.2 Kqi032 Na142 K4.5 BUN17 Cr1 eGFR78 AST36 ALT63 AP70 Tbili0.5 Alb4.5 Ca9.8 Urine Alb/Cr ratio 1268Allergies: NKDAHCP reviewed. Email sent to SW and PN to investigate if paperwork is availableAdvance Directives reviewed.MOLST done: 10/19/22 Full codeLast MoCa: 05/01/22GOC: Longevity Diabetes monitoring: Ppt using Ethan, average 180-200 with some in 50s-60s in the past month. Semi-Annual OV [facility] OV - 17 JUN 2022HPIVisit [...] once weekly injection before I discuss trmayraity N1PPV5a 8.8On glipizide, metformin, JanuviaPpt comes to SE once weeklyPpt is agreeable with TrmayraityWe discuss that I would like him to check his sugars BIDHe cannot write or read He is agreeable to mokono systemHTN w/ CKDHctz and LisinoprilCr 1.00GFR 78 / CKD 2BP recheck on room 142/84KNEE OAbilateral hx Cant use cortisone inj due to rxn in pastHe would like to try a topical agent Knees aren't given outALLERGIES No changes vs nextgen ROSno N V F Cno CP SOBno abd pain(+)bilateral knee painPEGen male appearing age NAD very pleasant Heart RRR (+)[id number] soft NT with (+)BS in all quadrants, [...] medical records beyond those available in the [facility] system where he had 2 hospitalizations. The [...] plaque. He tells me he saw a petroleum products sales representative in [place] in the past although does not recall [...] we learned [place] [facility] [place] [facility] [place] [facility] [...] timeSocial history:Never smoked neverNever drank appreciablyBorn in [place], came [place] until he rests roughly 55 years agoMarried for 5-6 decades.Adult son living in [place]. Several grandchildren living locally. Daughter who I believe lives locally .Patient worked in [employer] and then [employer]Functional history:Needs assistance with lower body bathing and dressingAbility to manage medications limited by illiteracyRarely uses walker or caneFall only in the context of his acute illness [facility] Instructions Date Instruction Additional Infor [...] without long-term current use of insulin 12/11/22 XYS049 TG194 HDL46 CH180- lipid panel today Related [...] disease (CKD) 12/25/22 WBC9.4 H/H 14 .3/42 Oid106 Folate 18.1 12/11/22 Thytdhkk95 %sat42 JIVK957 repeat labs ordered Related to H/O macrocytic [...] 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 Ppt previously saw a petroleum products sales representative [facility], still do not have records despite requesting. [...] with CMP- Ethan to be sent to [facility] for changing q14 days Related to Type [...] with CMP- Ethan to be sent to [facility] for changing q14 days Related to Chronic [...] stage 3a chronic kidney disease, unspecified whether fpc insulin use Ppt BP noted to be [...] Urine Alb/C r ratio 1268 A1c 8.8[facility] had a generalized seizure last [...] metformin and trulicity per conversation with endocrine TILLER MAN at [facility]- Labs today Related to Type 2 diabetes mellitus with stage 3a chronic kidney disease, without long-term current use of insulin 07/15/22 BUN20 Cr1.3 8 nPOD1246/22/22 BUN22 Cr1.46 eGFR50 05/27/22 BUN19 Cr1.37 eGFR53 05/01/22 BUN17 Cr1 eGFR78 Labs today, as the previous 3 test results have been stable Related to Stage 3a chronic kidney disease (CKD) 05/01/22 WBC 11.8 H/ H13.7/41.2 Kqo663 Labs today Related to H/O macrocytic anemia [...] 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 Ppt previously saw a petroleum products sales representative per ppt at [facility], still do not have records. Will alert [...] doesnt want to leave his alone, [facility], no TTE noted in the past. [...] Related to Chronic pain of both knees A1c 8.8%currently ta [place] po meds onlyOn [...] details known-There is no immunization record in [facility]. We have no records from primary [...] known asbestosis. He alludes to having a petroleum products sales representative in [place]. We do not currently have any information about this-Await medical records -Consider referral to [facility] pulmonary given his overall goalslikely needs dedicated CT chest Related to Pleural calcification Had status epileptic us in 2021 with [facility] admission. He is not on antiepileptics. MRI [...] cautious with his renal function Related to intermediate manager (current) use of oral hypoglycemic drugs Patient [...] curious assuming strict type 2 diabetes.-Check hemoglobin A8j-Yhdul urine microalbumin-He is on ELIA inhibitor, would continue the lisinopril-Depending on results of the A1c will adjust medication regimen-Given cognition and difficulties with medication aiming to avoid insulin-Seeing luis armando (Rita Chavarria)next week per service onszhunki-Azpgnhoz-Ruvcjlif Optometry here Related to Type 2 diabetes [...] Health Concern Goal Type Priority Status Date Tyere is at risk for falls due to [...]
--- OUTSIDE RECORDS SUMMARY | 2024-08-30 09:30 | XMS_ITS ---
Author Organization [facility] bianca [place] Address [address] [place] [address] Care Team Providers Care Property Assistant Name Role Phone Pilar GASTELUM, Gaby Primary Care Provider Unavail able Nika Fuller Unavailable [phone] Tommy Eli [phone] Encounters Encounter Location Date Provider Diagnosis [address] [address] 08/30/2024 Tommy Eli Plan Of Treatment Next Appt Details Provider Name:Nika hinojosa, 06/01/2025 02:45:00 PM, [address] [place], [address], Progress Notes * Tyree LAFLEURDOB:1945 (79 yo M)Acc No.[id number]:08/30/2024 Progress Note Patient: Tyree WEBB Provider: Jammie Eli D.P.M. :1945 A ge:78 Y S ex:Male Date:08/30/2024 Address:[address] [place] [address], [address], [place], [place] Pcp:Gaby Quezada MD Subjective: * Chief Complaints: [...] 08/30/2024 Generated for Nawaf dent/Vannessa/Von on: 0 04/12/2025 02:35 PM EDT
--- OUTSIDE RECORDS SUMMARY | 2025-02-23 11:15 | XMS_ITS ---
Author Organization [facility] Address [address] [place] [address] Care Team Providers Care Rubber Compounder Mixer Name Role Phone Pilar GASTELUM, Gaby Primary Care Provider Unavail able Nika Fuller Unavailable [phone] Allergies Allergen (clinical drug ingredient) Drug/Non Drug [...] Active Encounters Encounter Location Date Provider Diagnosis [facility] [address] 02/23/2025 Nika Fuller Type 2 diabetes mellitus [...] Reason: Provider Name:Nika hinojosa, 06/01/2025 02:45:00 PM, [address] [place] [address], [place], [address], Procedure Notes * Category Sub-Category Detail Notes [...] nail nipper and/or dremel-type grinder set up operator thread, to a more viable healthy nail plate [...] to maintain effectiveness in symptomatic relief - 06687 Keratoma Treatment Parring or Cutting o f [...] instrumentation by the physician of record - 82271 Progress Notes * Tyree LAFLEURDOB:1945 (79 yo M)Acc No.[id number]:02/23/2025 Progress Note Patient: Tyree WEBB Provider: Tony Fuller DPM :1945 A ge:79 Y S ex:Male Date:02/23/2025 Address:[address] [place] [address] Pcp:Gaby Quezada MD Subjective: * Chief Complaints: [...] nail nipper and/or dremel-type grinder set up operator thread, to a more viable healthy nail plate [...] to maintain effectiveness in symptomatic relief - 15630. K eratoma Treatment: Parring or Cutting of [...] instrumentation by the physician of record - 17810. * Procedure Codes: 1 1721 DEBRIDE NAIL, 6 OR MORE, Modifiers: XS , 89684 TRIM SKIN LESIONS, 2 TO 4, Modifiers: [...] 02/23/2025 Generated for Nawaf dent/Vannessa/Von on: 0 04/12/2025 02:34 PM EDT History and Physical Notes * [...]
[2025-04-12 11:29] VITALS: BP 190/110; PULSE 108; O2SAT 97; BMI 30.5
--- NOTE | 2025-04-12 11:29 | HO.NEPHOV_ITS ---
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 Required: No Accompanied by: Self / Same As Patient Allergies cortisone Adverse Reaction (Intermediate, Verified 04/12/25 11:33) Cough Medication List - Last Reconciled 04/12/25 by Matthew Lorenzana MD Advair Diskus 250-50 mcg/dose (fluticasone propion-salmeterol) 1 inh inhalation BID NS amlodipine 10 mg PO DAILY 90 days aspirin 1 tab PO DAILY 90 days blood pressure test kit-large ([employer]ocate Blood Pressure Monitor kit) As directed blood sugar diagnostic ([employer] Ultra Test strips) Use to check blood sugar once a day blood-glucose meter ([employer] Ultra2 Meter) As directed chlorthalidone 50 mg PO DAILY 90 days cholecalciferol (vitamin D3) 25 mcg PO DAILY 90 days docusate sodium (Colace) 100 mg PO DAILY PRN dulaglutide (Trulicity) 0.75 mg (0.5 mL) subcut QWEEK 90 days gabapentin 300 mg PO BEDTIME 90 days glimepiride 4 mg PO DAILY 90 days glipizide 10 mg PO DAILY 90 days hydralazine 10 mg PO TID 30 days hydrochlorothiazide 50 mg PO DAILY lancets ([employer] Delica Lancets) Use to check blood sugars once a day levetiracetam 1,000 mg (2 x 500 mg) PO BID 30 days linagliptin (Tradjenta) 5 mg PO DAILY 90 days lisinopril 40 mg PO DAILY 90 days metformin 1,000 mg PO BID 90 days miscellaneous medical supply As directed omeprazole 20 mg PO DAILY simvastatin 40 mg PO BEDTIME 90 days [Trapeze bar As directed] [wheelchair As directed] HPI Comments Details: 79-year-old man with a history of longstanding diabetes mellitus and hypertension referred for evaluation of chronic kidney disease and proteinuria Last year in 2023 serum creatinine was 1.79. He had a urine protein creatinine ratio 4334. He is being evaluated by Urology for erectile dysfunction and was referred for further evaluation of proteinuria. All his medications were reviewed he is on lisinopril amlodipine hydralazine. In addition he is on chlorthalidone 50 mg and hydrochlorothiazide 50 mg. It is unclear if he is taking both these diuretics. FORMERLY [facility], [facility]1983 Medical History Seizures Microalbuminuria Post-COVID chronic dyspnea Oxygen dependent GERD (gastroesophageal reflux disease) Diabetes mellitus Lumbar degenerative disc disease Pure hypercholesterolemia Essential hypertension Surgical History S/P matrixectomy of toe History of cervical spinal surgery Family History Father No problems noted. Mother No problems noted. Social History Housing: Apartment Alcohol intake: never Patient Tobacco Use Status: Never used Tobacco e-Cigarette/Vaping Use: Never Used Second Hand Smoke Exposure: No service: No Current occupational status: retired and disabled Current occupational exposures/hazards: No Cognitive needs: No Hearing needs: No Vision needs: Yes Review of Systems Const Denies fever(s) and Denies weight loss Card Denies chest pain Resp Denies cough and Denies hemoptysis GI Denies abdominal pain, Denies diarrhea and Denies nausea Musc Denies back pain Neuro Denies focal weakness Physical Exam Vital Signs: Last Vital Signs Pulse 108 H 04/12/25 11:29 BP 190/110 H 04/12/25 11:29 Pulse Ox 97 04/12/25 11:29 Oxygen Delivery Method Room Air 04/12/25 11:29 BMI result Body Mass Index 30.5 Comfortable Neck supple no JVD. Lungs entry equal no rales. Heart S1-S2 heard no gallop or rub. Abdomen soft nontender. Neuro alert awake oriented. No asterixis. Extremities no edema. Results Reviewed Results Reviewed: Results reviewed Assessment & Plan Assessment & Plan (1) CKD (chronic kidney disease): Code(s): N18.9 - Chronic kidney disease, unspecified Category: Medical Plan Elderly man with chronic kidney disease with nephrotic range proteinuria in the setting of longstanding diabetes mellitus hypertension. Baseline renal function needs to be determined. About a year ago creatinine was 1.79. I have initiated a workup including renal ultrasonogram and urine studies. Hypertension blood pressure acceptable goal is to maintain blood pressure less than 130/80. Proteinuria most likely due to underlying diabetic kidney disease. However non nephrotic diabetic causes should be ruled out. Recommendations Workup as outlined below. Discontinue hydrochlorothiazide. Encouraged him to bring all his medications next visit. Maintain blood pressure less than 130/80 Continue to avoid nephrotoxic agents including NSAIDs Returned to the clinic in the next few weeks after the baseline workup Is completed. Orders: Orders Complete Blood Count no Diff Today N18.9 - Chronic kidney disease, unspecified, R80.9 - Proteinuria, unspecified Total Protein Urine Random Today N18.9 - Chronic kidney disease, unspecified, R80.9 - Proteinuria, unspecified UA and rflx microscopic Today N18.9 - Chronic kidney disease, unspecified, R80.9 - Proteinuria, unspecified US renal BI Today N18.9 - Chronic kidney disease, unspecified, R80.9 - Proteinuria, unspecified ERIN Reflex Titer and Pattern Today N18.9 - Chronic kidney disease, unspecified, R80.9 - Proteinuria, unspecified Complement C4 Today N18.9 - Chronic kidney disease, unspecified, R80.9 - Proteinuria, unspecified Protein Electrophoresis, Serum Today N18.9 - Chronic kidney disease, unspecified, R80.9 - Proteinuria, unspecified Basic Metabolic Panel Today N18.9 - Chronic kidney disease, unspecified, R80.9 - Proteinuria, unspecified Creatinine Urine Today N18.9 - Chronic kidney disease, unspecified, R80.9 - Proteinuria, unspecified Complement C3 Today N18.9 - Chronic kidney disease, unspecified, R80.9 - Proteinuria, unspecified Coding Level of Care Code New Pt Level 4 (94364) Diagnoses CKD (chronic kidney disease) N18.9
--- OUTSIDE RECORDS SUMMARY | 2025-04-12 14:35 | XMS_ITS | Patient Health Record ---
[facility] Address [address] [place] [address] Care Team Providers Care Assistant Designer Name Role Phone Pilar GASTELUM, Gaby Primary Care Provider Unavail able Nika Fuller Unavailable [phone] Tommy Eli Unavailable [phone] Allergies Allergen (clinical drug ingredient) Drug/Non Drug [...] Problem Acquired hammer toe of right foot (7667459482523 105) Other hammer toe(s) (acquired), right foot (M20.41) Active confirmed Problem Type 2 diabetes mellitus with peripheral angiopathy (222377404) Type 2 diabetes mellitus with diabetic peripheral angiopathy without gangrene (E11.51) Active confirmed Q7(A), Q8(2B), Q9(1B,2C) Problem Acquired hammer toe of left foot (2036678952771 103) Other hammer toe(s) (acquired), left foot (M20.42) Active confirmed Vital Signs Blood pressure diastolic 70 mm Hg 12/15/2024 Height 5ft 8in in 12/15/2024 Blood pressure systolic 133 mm Hg 12/15/2024 Weight 180 lbs 12/15/2024 BMI 27.37 kg/m2 12/15/2024 Procedures Procedure Date Ordered Date Performed Result Body Sit e 50073-CHZCDCP NAIL, 6 OR MORE 06/21/2024 N/A [id number] NAIL, 6 OR MORE 09/29/2024 N/A Encounters Encounter Location Date Provider Diagnosis [address] [address] 06/21/2024 Tommy Eli Type 2 diabetes mellitus with diabetic peripheral angiopathy without gangrene E11.51 ; Tinea unguium B35.1 ; Pain in right toe(s) M79.674 and Pain in left toe(s) M79.[address] [address] 09/29/2024 Tommy Eli Controlled type 2 diabetes mellitus with diabetic polyneuropathy, without long-term current use of insulin E11.42 and Tinea unguium B35.[address] [address] 12/15/2024 Nika Fuller Type 2 diabetes mellitus with diabetic peripheral angiopathy without gangrene E11.51 ; Tinea unguium B35.1 ; Pain in right toe(s) M79.674 ; Pain in left toe(s) M79.675 ; Other hammer toe(s) (acquired), left foot M20.42 and Other hammer toe(s) (acquired), right foot M20.[address] [address] 08/01/2024 Tommy Eli [address] [address] 2024 Tommy Eli Assessments Encounter Date Diagnosis [...] Treatment Pending Test Test Name Order Date [id number] NAIL, 6 OR MORE 06/21/2024 [id number] NAIL, 6 OR MORE 09/29/2024 Next Appt Details Provider Name:Nika hinojosa, 06/01/2025 02:45:00 PM, 1983 [facility], [place], [address], Insurance Providers Payer Name Payer Address Payer Phone Subscriber Number Group Number Insured Name Patient Relationship to Insured Coverage Start Date Coverage End Date [facility] SCO Claims [address] [place] [id number] [phone] [id number] Tyree Lafleur Self - patient is the insured Medical (General) History Medical History History ICD Code Arthritis asthma Back,Hip,and Knee pain Broken bones Cataracts covid-19 Dementia type II diabetes High Blood Pressure Chicken pox Joint implants/screws eye injections Surgical History Surgery Date(Month/Year) bone implant 1970
== END 2025-04-12 11:51 | disposition home or self-care (01) ==
PROVIDERS: PCP Internal Medicine; Referring Provider Nurse Practitioner Family; Visit Provider Internal Medicine Hypertension Specialist
DX: N18.9 Chronic kidney disease, unspecified (principal)
CPT/HCPCS: 99204

== ENCOUNTER 2025-05-08 15:52 | Outpatient (REF) | payer OTHER, SELFPAY ==
--- OUTSIDE RECORDS SUMMARY | 2024-01-07 10:17 | XMS_ITS | Continuity of Care Document ---
Author Organization [facility] Address [address] [address] Phone Care Team Providers Care Rigging Foreman Name Role Phone Hollis BECKER, Martha Unavailable [...] use as directed - Active DELIVER TO THE [facility] [address] Trulicity 1.5 mg/0.5 [...] Active DELIVER TO HOME FreeStyle Ethan 2 Carpenter use as directed - Active PLEASE DELIVER TO HOME Prevnar 20 (PF) 0.5 mL intramuscular syringe inject 0.5 milliliter by intramuscular route once 0.50 milliliter - Active Please deliver to site in [place] Advance Directives Directive Yes / No Effective Date File Name No Information Encounters Encounter Description Practice Location Reason(s) For Visit Diagnoses Date Provider [facility], [address] [place] [address], [place], [place], [id number], [place] tel:[phone] [place] No Information 4 [facility]. [address], [place], [place], [id number], [place]. tel:[phone] [facility], [address], [place], [place], [id number], [place] tel:[phone] [place] No Information 4 [facility]. [address] [place], [place], [id number], [place]. tel:[phone] [facility], [address], [place], [place], [id number], [place] tel:[phone] [place] Acute Visit (chief complaint) Illness, unspecifiedLong toenail 4 [facility]. [address] [place], [place], [id number], [place]. tel:[phone] [facility], [address], [place], [place], [id number], [place] tel:[phone] [place] [facility] abnormal findings 4 [facility]. [address] [place], [place], [id number], [place]. tel:[phone] [facility], [address], [place], [place], [id number], [place] tel:[phone] [place] No Information 3 Bhagavatula Ujjwala. [address] [place], [place], [id number], [place]. tel:[phone] [facility], [address], [place], [place], [id number], [place] tel:[phone] [place] No Information 3 Bhagavatula Ujjwala. [address] [place], [place], [id number], [place]. tel:[phone] [facility], [address], [place], [place], [id number], [place] tel:[phone] [place] No Information 3 Bhagavatula Ujjwala. [address] [place], [place], [id number], [place]. tel:[phone] [facility], [address], [place], [place], [id number], [place] tel:[phone] [place] Encounter for rehabilitation evaluation 3 Ellie Nesbitt. [address] [place], [id number], [place]. tel:[phone] [facility], [address], [place], [place], [id number], [place] tel:[phone] [place] Type 2 diabetes mellitus with stage 3b chronic kidney disease, without long-term current use of insulinChronic kidney disease, stage 3b 3 Bhagavatula Ujjwala. [address] [place], [id number], [place]. tel:[phone] [facility], [address], [place], [place], [id number], [place] tel:[phone] [place] No Information 3 Bhagavatula Ujjwala. [address] [place], [id number], [place]. tel:[phone] [facility], [address], [place], [place], [id number], [place] tel:[phone] [place] No Information 3 Bhagavatula Ujjwala. [address] [place], [id number], [place]. tel:[phone] [facility], [address], [place], [place], [id number], [place] tel:[phone] [place] Stage 3a chronic kid gifty disease (CKD)Type 2 diabetes mellitus with stage 3b chronic kidney disease, without long-term current use of insulinChronic kidney disease, stage 3b 3 Bhagavatula Ujjwala. [address], [place], [place], [id number], [place]. tel:[phone] [facility], [address] [facility], [place], [place], [id number], [place] tel:[phone] [place] Encounter for rehabilitation evaluation Sep-2 3 Avni Correa. [address], [place], [id number], [place]. tel:[phone] [facility], [address] [facility], [place], [place], [id number], [place] tel:[phone] [place] Encounter for rehabilitation evaluation Sep-2 3 Bryce Wright. [address], [place], [id number], [place]. tel:[phone] [facility], [address] [facility], [place], [place], [id number], [place] tel:[phone] [place] No Information Sep- 3 Bhagavatula Ujjwala. [address] [facility] [place], [id number], [place]. tel:[phone] [facility], [address] [facility] [address] [facility], [place], [place], [id number], [place] tel:[phone] [place] Semi-Annua l (chief complaint) Encounter for nutritional assessment Sep- [address] [facility], [place], [address]. tel:[phone] [facility], [address] [facility] [facility], [place], [place], [id number], [place] tel:[phone] [place] Semi-Annua l (chief complaint) Primary snoringLung fibrosisPleural [...] kidney disease 3 Maddisonagaevelintula Ujjwala. [address] [place], [place], [id number], [place]. tel:[phone] [facility], [address], [place], [place], [id number], [place] tel:[phone] [place] No Information 3 Juankatie Robertsonn. [address] [place], [place], [id number], [place]. 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 [address] [facility] [place], [id number], [place]. tel:[phone] [facility], [address], [place], [place], [id number], [place] tel:[phone] [place] Shortness of breath 3 Kj Childresswala. [address] [facility] [place], [id number], [place]. tel:[phone] [facility], [address], [place], [place], [id number], [place] tel:[phone] [place] Fall (chief complaint) Leg pain, rightType 2 diabetes mellitus with stage 3a chronic kidney disease, without long-term current use of insulinChronic kidney disease, stage 3a 3 Maddisonagaevelintula Ulambertojwala. [address] [facility] [place], [id number], [place]. tel:[phone] [facility], [address], [place], [place], [id number], [place] tel:[phone] [place] OV (chief complaint) Type 2 diabetes mellitus with stage 3a chronic kidney disease, unspecified whether lobsterman insulin useChronic kidney disease, stage 3aLong-term (current) use of injectable non-insulin antidiabetic drugs 3 Konstantin Henderson. [address], [place], [place], [id number], [place]. tel:[phone] [facility], [address], [place], [place], [id number], [place] tel:[phone] [place] No Information 3 Konstantin Henderson. [address], [place], [place], [id number], [place]. tel:[phone] [facility], [address], [place], [place], [id number], [place] tel:[phone] [place] No Information 3 Konstantin Henderson. [address], [place], [place], [id number], [place]. tel:[phone] [facility], [address], [place], [place], [id number], [place] tel:[phone] [place] Semi-Annua l (chief complaint) Primary snoringSlow transit [...] drugs 3 Kj Womack. [address], [place], [place], [id number], [place]. tel:[phone] [facility], [address], [place], [place], [id number], [place] tel:[phone] [place] Encounter for genera l adult medical examination without abnormal findings 3 Konstantin Henderson. [address], [place], [place], [address], [place]. tel:[phone] [facility], [address] [facility] [address], [place], [place], [address], [place] tel:[phone] [place] OV (chief complaint) Hypertensive heart and kidney disease without heart failure and with stage 3a chronic kidney diseaseChronic kidney disease, stage 3a 2 Konstantin Henderson. [address] [facility] [place], [address], [place]. tel:[phone] [facility], [address] [facility] [facility], [place], [place], [id number], [place] tel:[phone] [place] OV (chief complaint) Hypertensive heart and kidney disease without heart failure and with stage 2 chronic kidney diseaseChronic kidney disease, stage 2 (mild)Type 2 diabetes mellitus with stage 2 chronic kidney disease, without long-term current use of insulinChronic pain of both kneesPain in left kneeOther chronic pain 2 Konstantin Henderson. [address] [place], [place], [id number], [place]. tel:[phone] [facility], [address] [facility] [facility], [place], [place], [id number], [place] tel:[phone] [place] Encounter for genera l adult medical examination without abnormal findings 2 Janny Ellis. [address] [place], [id number], [place]. tel:[phone] [facility], [address] [facility] [facility], [place], [place], [address], [place] tel:[phone] [place] Encounter for nutritional assessmentDiabetic nutritional counseling completed 2 Isabel Lyons. [address] [place], [id number], [place]. tel:[phone] [facility], [address] [facility] [address], [place], [place], [address], [place] tel:[phone] [place] Encounter for rehabilitation evaluation 2 Pipo Hightower. [address] [place], [address]. tel:[phone] [facility], [address] [address], [place], [place], [address], [place] tel:[phone] [place] Encounter for rehabilitation evaluationOther chronic pain 2 Reece Patel. [address], [place], [id number], [place]. tel:[phone] [facility], [address] [facility], [place], [place], [id number], [place] tel:[phone] [place] PEE (chief complaint) Coronary artery calcification seen [...] general health examination 2 Juan Child. [address] [place], [place], [id number], [place]. tel:[phone] [facility], [address] [address], [place], [place], [address], [place] tel:[phone] [place] Encounter for rehabilitation evaluation 2 Reecetheodore Patel. [address], [place], [id number], [place]. tel:[phone] Family History Family Member Type Diagnosis Age [...] type Covered green party ID Authoriza tion(s) [facility] 16 [id number] [facility] 16 [id number] [facility] 16 [id number] [facility] 16 [id number] [facility] 16 [id number] Social History Type Description Quantity Date Captured Comments Sex Male Smoking Status No Information Chief Complaint And Reason For Visit No Information Plan Of Treatment Date Type Action Status Referral Ordered: Dentistry (related to Encounter for general health examination) ordered Referral Ordered: Referrals: Dentistry ordered Referral Ordered: Referrals: [facility] [place] Location: [facility] [place] ordered Referral Ordered: Referrals: Podiatry. Evaluate and treat Appointment date/timeframe: 05/04/2023 ordered Referral Ordered: Referrals: [facility] [place]- Appointment date/timeframe: 10/27/2022 ordered Referral Ordered: Referrals: Otolaryngology. Follow-up and treat Appointment date/timeframe: 08/25/2022 ordered Referral Referred To: [facility] [place] Ordered: Referrals: Dentistry. [facility] [place]. Evaluate and treat Appointment date/timeframe: 10/15/2022 ordered Referral Referred To: [facility] [place] Ordered: Referrals: Central Supply Nurse. [facility] [place]. Evaluate and treat Appointment date/timeframe: 10/15/2022 ordered Referral Referred To: [facility] [place] Ordered: Referrals: Podiatry. [facility] [place]. 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 Vitals stable not fever no cough lung sounds clear. He also state that he has not seen the treatment plant operator and that his toe nails are catching [...] Collective.NO falls documented per [facility] incident reporting SERVICES/CONSULTANTS:[facility] [place] podiatryOPEN ORDERSHome sleep study - maylin still [...] LFTs normal A1c 5.56/8/23 WBC9.4 H/H 14.3/42 Ewk694 BNP 66 Folate 18.1 A1c 5.3 YRR375/25/23 Bbitokgd19 %sat42 RHGU904 Na135 K4.3 Mg2.4 Phos3.7 BUN22 Cr1.46 eGFR49 LFTs normal Alb/Cr ratio 985 Ca 8.9 Ionized Ca 5.2 TSH2.34 [id number] GAQ676 HDL46 SH72131/ Na 140 K4.2 BUN20 Cr1.38 eGFR53 Ca9.511/ Na140 K4.1 BUN22 Cr1.46 eGFR50 Ca9.511/03/10 Na141 K4.2 BUN19 Cr1.37 eGFR53 AST19 ALT10 AP78 Ca9.3 Alb4.1 Tbili 0.4 HBV core Ab reactive, HBV surface Ab reactive, HCV ab non djyyvvzm88/13/22 WBC 11.8 H/H13.7/41.2 Tds390 Na142 K4.5 BUN17 Cr1 eGFR78 AST36 ALT63 [...] joined SE using januvia and glipizide last cjvkbbB9z was 8.8%Dc'd januvia and added Trulicity On [...] Collective.NO falls documented per SE incident reporting SERVICES/CONSULTANTS:[facility] [place] podiatryNO OPEN ORDERS OR OPEN DIAGNOSTICS NOTED.Ppt [...] hernia , however per imaging found on [employer] records no documentation of a hernia was [...] HCTZ for blood pressure.Labs reviewed. Labs today aisjdzz84/27/22 Na 140 K4.2 BUN20 Cr1.38 eGFR53 Ca9. Na140 K4.1 BUN22 Cr1.46 eGFR50 Ca9.511 Na141 K4.2 BUN19 Cr1.37 eGFR53 AST19 ALT10 AP78 Ca9.3 Alb4.1 Tbili 0.4 HBV core Ab reactive, HBV surface Ab reactive, HCV ab non nfxgosxf47/13/22 WBC 11.8 H/H13.7/41.2 Xsm540 Na142 K4.5 BUN17 Cr1 eGFR78 AST36 ALT63 AP70 Tbili0.5 Alb4.5 Ca9.8 Urine Alb/Cr ratio 1268Allergies: NKDAHCP reviewed. Email sent to SW and PN to investigate if paperwork is availableAdvance Directives reviewed.MOLST done: 10/19/22 Full codeLast MoCa: 05/01/22GOC: Longevity Diabetes monitoring: Ppt using Ethan, average 180-200 with some in 50s-60s in the past month. Semi-Annual OV [facility] OV - 17 JUN 2022HPIVisit to [...] once weekly injection before I discuss trmayraity E3ZMD4a 8.8On glipizide, metformin, JanuviaPpt comes to [facility] once weeklyPpt is agreeable with TrmayraityWe discuss that I would like him to check his sugars BIDHe cannot write or read He is agreeable to [employer] systemHTN w/ CKDHctz and LisinoprilCr 1.00GFR 78 / CKD 2BP recheck on room 142/84KNEE OAbilateral hx Cant use cortisone inj due to rxn in pastHe would like to try a topical agent Knees aren't given outALLERGIES No changes vs nextgen ROSno N V F Cno CP SOBno abd pain(+)bilateral knee painPEGen male appearing age NAD very pleasant Heart RRR (+)c8u2vho soft NT with (+)BS in all quadrants, [...] plaque. He tells me he saw a textile conservator in [place] in the past although does not recall [...] we learned he has ophthalmology appointment in [place] [facility]See[facility] for traumatic injury of [...] timeSocial history:Never smoked neverNever drank appreciablyBorn in [place], came to constant until he rests roughly 55 years agoMarried for 5-6 decades.Adult son living in [place]. Several grandchildren living locally. Daughter who I believe lives locally .Patient worked in [email or web address] and then [employer]Functional history:Needs assistance with lower body bathing and dressingAbility to manage medications limited by illiteracyRarely uses walker or caneFall only in the context of his acute illness [facility] Instructions Date Instruction Additional Infor [...] Related to Chronic kidney disease, stage 3b sugars continue to 3 00s 400sstarted in [...] with stage 3a chronic kidney disease 12/11/22 EZO620 TG194 HDL46 CH180- lipid panel today Related [...] disease (CKD) 12/25/22 WBC9.4 H/H 14 .3/42 Vpq115 Folate 18.1 12/11/22 Ovxksqec59 %sat42 DDTK339 repeat labs ordered Related to H/O macrocytic [...] 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 Ppt previously saw a textile conservator per [facility]pt at [facility], still do not have records despite requesting. [...] with CMP- Ethan to be sent to [facility] for changing q14 days Related to [...] with CMP- Ethan to be sent to [facility] for changing q14 days Related to Chronic kidney disease, stage 3a Using glipizide and trulicityOn 12/25/22 a1c was 5.3%GFR was down to 49ppt agreeable with dc of glipizidewill cont trulicityCMP and A1c todaycont eval Related to Type 2 diabetes mellitus with stage 3a chronic kidney disease, unspecified whether lobsterman insulin use trulicity Related to Long- term (current) use of injectable non-insulin antidiabetic drugs GFR 49sulfonylurea d c'd labs todayeval ongoing Related to Chronic kidney disease, stage 3a Ppt BP noted to be e levated [...] Urine Alb/C r ratio 1268 A1c 8.8Per [employer] records ppt had a generalized seizure last [...] metformin and trulicity per conversation with endocrine CORSET FITTER at [facility]- Labs today Related to Type 2 diabetes mellitus with stage 3a chronic kidney disease, without long-term current use of insulin 07/15/22 BUN20 Cr1.3 8 jATG9969/22/22 BUN22 Cr1.46 eGFR50 05/27/22 BUN19 Cr1.37 eGFR53 05/01/22 BUN17 Cr1 eGFR78 Labs today, as the previous 3 test results have been stable Related to Stage 3a chronic kidney disease (CKD) 05/01/22 WBC 11.8 H/ H13.7/41.2 Del823 Labs today Related to H/O macrocytic anemia [...] 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 Ppt previously saw a textile conservator per ppt at [facility], still do not have records. Will alert [...] doesnt want to leave his alone, per [employer] records, no TTE noted in the past. [...] Related to Chronic kidney disease, stage 3a BP recheck consisten t with prev visitsGFR [...] and with stage 3a chronic kidney disease ppt endorses low lev el chronic pain [...] details known-There is no immunization record in [facility]. We have no records from primary [...] known asbestosis. He alludes to having a textile conservator in [place]. We do not currently have any information about this-Await medical records -Consider referral to [facility] pulmonary given his overall goalslikely needs dedicated CT chest Related to Pleural calcification Had status epileptic us in 2021 with [facility] admission. He is not on antiepileptics. 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
--- OUTSIDE RECORDS SUMMARY | 2024-08-30 09:30 | XMS_ITS ---
Author Organization [facility] bianca [place] Address [address] [place] [address] Care Team Providers Care Bilingual Medical Receptionist Name Role Phone Pilar GASTELUM, Gaby Primary Care Provider Unavail able Nika Fuller Unavailable [phone] Tommy Eli [phone] Encounters Encounter Location Date Provider Diagnosis [address] [address] 08/30/2024 Tommy Eli Plan Of Treatment Next Appt Details Provider Name:Nika hinojosa, 06/01/2025 02:45:00 PM, [address] [place], [address], Progress Notes * Tyree LAFLEURDOB:1945 (79 yo M)Acc No.[id number]:08/30/2024 Progress Note Patient: Tyree WEBB Provider: Jammie Eli D.P.M. :1945 A ge:78 Y S ex:Male Date:08/30/2024 Address:[address] [place] [address], [address], [place], [place] Pcp:Gaby Quezada MD Subjective: * Chief Complaints: [...] 08/30/2024 Generated for Nawaf dent/Vannessa/Von on: 1 08:12 PM EDT
--- OUTSIDE RECORDS SUMMARY | 2025-02-23 11:15 | XMS_ITS ---
Author Organization [facility] Address [address] [facility] [place] [address] Care Team Providers Care Book Publisher Name Role Phone Pilar GASTELUM, Gaby Primary Care Provider Unavail able Nika Fuller Unavailable [phone] Allergies Allergen (clinical drug ingredient) Drug/Non Drug [...] Active Encounters Encounter Location Date Provider Diagnosis [facility] [address] 02/23/2025 Nika Fuller Type 2 diabetes mellitus [...] Reason: Provider Name:Nika hinojosa, 06/01/2025 02:45:00 PM, [address] [place] [address], [place], [address], Procedure Notes * Category Sub-Category Detail Notes [...] use of a nail nipper and/or dremel-type chicle grinder feeder, to a more viable healthy nail plate [...] to maintain effectiveness in symptomatic relief - 98113 Keratoma Treatment Parring or Cutting o f [...] instrumentation by the physician of record - 27185 Progress Notes * Tyree LAFLEURDOB:1945 (79 yo M)Acc No.[id number]:02/23/2025 Progress Note Patient: Tyree WEBB Provider: Tony Fuller DPM :1945 A ge:79 Y S ex:Male Date:02/23/2025 Address:[address] [place] [address] Pcp:Gaby Quezada MD Subjective: * Chief Complaints: [...] use of a nail nipper and/or dremel-type chicle grinder feeder, to a more viable healthy nail plate [...] to maintain effectiveness in symptomatic relief - 47926. K eratoma Treatment: Parring or Cutting of [...] instrumentation by the physician of record - 44907. * Procedure Codes: 1 1721 DEBRIDE NAIL, 6 OR MORE, Modifiers: XS , 38167 TRIM SKIN LESIONS, 2 TO 4, Modifiers: [...] 02/23/2025 Generated for Nawaf dent/Vannessa/Von on: 1 08:11 PM EDT History and Physical Notes * [...]
--- NOTE | ~2025-05-08 | US_ITS ---
EXAMINATION: US RETROPERITONEAL LIMITED (RENAL ONLY) CLINICAL INFORMATION: Proteinuria, unspecified.. COMPARISON: None available. TECHNIQUE: Real-time imaging of the kidneys. FINDINGS: RIGHT KIDNEY: 10.6 x 5.3 x 4.9 cm (SAG x AP x TRV). The kidney is normal in size, contour, and echogenicity. Renal cortical thickness is normal. No calculi or suspicious focal parenchymal lesions. No hydronephrosis. There is a mid pole cyst measuring 0.8 cm. There is an upper pole simple cyst measuring 1.7 cm. Mild pelvic fullness is noted, nonspecific. LEFT KIDNEY: 10.6 x 5.1 x 6.0 cm (SAG x AP x TRV). The kidney is normal in size, contour, and echogenicity. Renal cortical thickness is normal. No calculi or suspicious focal parenchymal lesions. No hydronephrosis. There is a mid pole lateral simple cyst measuring 5.7 x 4.5 x 5.8 cm. Mild pelvic fullness is noted, nonspecific. US/US renal BI IMPRESSION: 1. Bilateral renal cysts. Mild nonspecific fullness of both renal pelvises. No gross hydronephrosis. 2. Otherwise normal examination. Electronically signed by: Ashutosh Salomon MD 05/08/2025 04:34 PM EDT
--- OUTSIDE RECORDS SUMMARY | 2025-05-08 20:12 | XMS_ITS | Patient Health Record ---
Author Organization [facility] Address [address] [place] [address] Care Team Providers Care Chef Instructor Name Role Phone Pilar GASTELUM, Gaby Primary Care Provider Unavail able Nika Fuller Unavailable [phone] Tommy Eli Unavailable [phone] Allergies Allergen (clinical drug ingredient) Drug/Non Drug [...] Problem Acquired hammer toe of right foot ([id number] 105) Other hammer toe(s) (acquired), right foot (M20.41) Active confirmed Problem Type 2 diabetes mellitus with peripheral angiopathy (800150655) Type 2 diabetes mellitus with diabetic peripheral angiopathy without gangrene (E11.51) Active confirmed Q7(A), Q8(2B), Q9(1B,2C) Problem Acquired hammer toe of left foot (4927039357831 103) Other hammer toe(s) (acquired), left foot (M20.42) Active confirmed Vital Signs Blood pressure diastolic 70 mm Hg 12/15/2024 Height 5ft 8in in 12/15/2024 Blood pressure systolic 133 mm Hg 12/15/2024 Weight 180 lbs 12/15/2024 BMI 27.37 kg/m2 12/15/2024 Procedures Procedure Date Ordered Date Performed Result Body Sit e 87196-FHFNGPV NAIL, 6 OR MORE 06/21/2024 N/A [id number] NAIL, 6 OR MORE 09/29/2024 N/A Encounters Encounter Location Date Provider Diagnosis [address] [address] 06/21/2024 Tommy Eli Type 2 diabetes mellitus with diabetic peripheral angiopathy without gangrene E11.51 ; Tinea unguium B35.1 ; Pain in right toe(s) M79.674 and Pain in left toe(s) M79.[address] [address] 09/29/2024 Tommy Eli Controlled type 2 diabetes mellitus with diabetic polyneuropathy, without long-term current use of insulin E11.42 and Tinea unguium B35.[address] [address] 12/15/2024 Nika Fuller Type 2 diabetes mellitus with diabetic peripheral angiopathy without gangrene E11.51 ; Tinea unguium B35.1 ; Pain in right toe(s) M79.674 ; Pain in left toe(s) M79.675 ; Other hammer toe(s) (acquired), left foot M20.42 and Other hammer toe(s) (acquired), right foot M20.[address] [address] 08/01/2024 Tommy Eli [address] [address] 2024 Tommy Eli Assessments Encounter Date Diagnosis [...] Treatment Pending Test Test Name Order Date [id number] NAIL, 6 OR MORE 06/21/2024 [id number] NAIL, 6 OR MORE 09/29/2024 Next Appt Details Provider Name:Nika hinojosa, 06/01/2025 02:45:00 PM, 1983 [facility], [place], [address], Insurance Providers Payer Name Payer Address Payer Phone Subscriber Number Group Number Insured Name Patient Relationship to Insured Coverage Start Date Coverage End Date [facility] SCO Claims [address] [place] [id number] Tyree Lafleur Self - patient is the insured Medical (General) History Medical History History ICD Code Arthritis asthma Back,Hip,and Knee pain Broken bones Cataracts covid-19 Dementia type II diabetes High Blood Pressure Chicken pox Joint implants/screws eye injections Surgical History Surgery Date(Month/Year) bone implant 1970
== END 2025-05-08 15:53 | disposition home or self-care (01) ==
LOC: HO.US 15:52
PROVIDERS: PCP Internal Medicine; Visit Provider Internal Medicine Hypertension Specialist
DX: R80.9 Proteinuria, unspecified (principal); N18.9 Chronic kidney disease, unspecified
CPT/HCPCS: 76775

== ENCOUNTER → 2025-05-08 15:54 | Outpatient (BNV) | payer OTHER, SELFPAY | PROVIDERS: PCP Internal Medicine; Visit Provider Radiology Diagnostic Radiology | DX: N28.1 Cyst of kidney, acquired (principal) | CPT/HCPCS: 76775 ==

== ENCOUNTER 2025-05-10 11:14 | Outpatient (AMB) | payer OTHER, SELFPAY ==
--- OUTSIDE RECORDS SUMMARY | 2024-08-30 09:30 | XMS_ITS ---
Author Organization [facility] bianca [place] Address [address] [facility] [place] [address] Care Team Providers Care Fisher Gill Net Name Role Phone Pilar GASTELUM, Gaby Primary Care Provider Unavail able Nika Fuller Unavailable [phone] Tommy Eli [phone] Encounters Encounter Location Date Provider Diagnosis [address] [address] 08/30/2024 Tommy Eli Plan Of Treatment Next Appt Details Provider Name:Nika hinojosa, 06/01/2025 02:45:00 PM, [address] [place], [address], Progress Notes * Tyree LAFLEURDOB:1945 (79 yo M)Acc No.[id number]:08/30/2024 Progress Note Patient: Tyree WEBB Provider: Jammie Eli D.P.M. :1945 A ge:78 Y S ex:Male Date:08/30/2024 Address:[address] [place] [address], [address], [place], [place] Pcp:Gaby Quezada MD Subjective: * Chief Complaints: [...] 08/30/2024 Generated for Nawaf dent/Vannessa/Von on: 1 03:21 PM EDT
--- OUTSIDE RECORDS SUMMARY | 2025-02-23 11:15 | XMS_ITS ---
Author Organization [facility] Address [address] [facility] [place] [address] Care Team Providers Care Engraving Supervisor Name Role Phone Pilar GASTELUM, Gaby Primary Care Provider Unavail able Nika Fuller Unavailable [phone] Allergies Allergen (clinical drug ingredient) Drug/Non Drug [...] Active Encounters Encounter Location Date Provider Diagnosis [facility] [address] 02/23/2025 Nika Fuller Type 2 diabetes mellitus [...] Reason: Provider Name:Nika hinojosa, 06/01/2025 02:45:00 PM, [address] [place] [address], [place], [address], Procedure Notes * Category Sub-Category Detail Notes [...] of a nail nipper and/or dremel-type grinder gear, to a more viable healthy nail plate [...] to maintain effectiveness in symptomatic relief - 98264 Keratoma Treatment Parring or Cutting o f [...] instrumentation by the physician of record - 75191 Progress Notes * Tyree LAFLEURDOB:1945 (79 yo M)Acc No.[id number]:02/23/2025 Progress Note Patient: Tyree WEBB Provider: Tony Fuller DPM :1945 A ge:79 Y S ex:Male Date:02/23/2025 Address:[address] [place] [address] Pcp:Gaby Quezada MD Subjective: * Chief Complaints: [...] of a nail nipper and/or dremel-type grinder gear, to a more viable healthy nail plate [...] to maintain effectiveness in symptomatic relief - 79470. K eratoma Treatment: Parring or Cutting of [...] instrumentation by the physician of record - 67457. * Procedure Codes: 1 1721 DEBRIDE NAIL, 6 OR MORE, Modifiers: XS , 59275 TRIM SKIN LESIONS, 2 TO 4, Modifiers: [...] 02/23/2025 Generated for Nawaf dent/Vannessa/Von on: 1 03:21 PM EDT History and Physical Notes * [...]
[2025-05-10 11:16] VITALS: BP 176/88; PULSE 89; O2SAT 98; BMI 31.3
--- NOTE | 2025-05-10 11:16 | HO.NEPHOV_ITS ---
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 Marketing Required: No Accompanied by: Self / Same As Patient Allergies cortisone Adverse Reaction (Intermediate, Verified 05/10/25 11:19) Cough Medication List - Last Reconciled 05/10/25 by Matthew Lroenzana MD Advair Diskus 250-50 mcg/dose (fluticasone propion-salmeterol) 1 inh inhalation BID NS amlodipine 10 mg PO DAILY 90 days aspirin 1 tab PO DAILY 90 days blood pressure test kit-large ([employer] Blood Pressure Monitor kit) As directed blood sugar diagnostic ([employer] Ultra Test strips) Use to check blood sugar once a day blood-glucose meter ([employer] Ultra2 Meter) As directed chlorthalidone 50 mg PO DAILY 90 days cholecalciferol (vitamin D3) 25 mcg PO DAILY 90 days docusate sodium (Colace) 100 mg PO DAILY PRN dulaglutide (Trulicity) 0.75 mg (0.5 mL) subcut QWEEK 90 days gabapentin 300 mg PO BEDTIME 90 days glimepiride 4 mg PO DAILY 90 days glipizide 10 mg PO DAILY 90 days hydralazine 10 mg PO TID 30 days lancets ([employer] Delica Lancets) Use to check blood sugars once a day levetiracetam 1,000 mg (2 x 500 mg) PO BID 30 days linagliptin (Tradjenta) 5 mg PO DAILY 90 days lisinopril 40 mg PO DAILY 90 days metformin 1,000 mg PO BID 90 days miscellaneous medical supply As directed omeprazole 20 mg PO DAILY simvastatin 40 mg PO BEDTIME 90 days [Trapeze bar As directed] [wheelchair As directed] HPI Comments Details: 79-year-old man with a history of longstanding diabetes mellitus and hypertension referred for evaluation of chronic kidney disease and proteinuria Last year in 2023 serum creatinine was 1.79. He had a urine protein creatinine ratio 4334. He is being evaluated by Urology for erectile dysfunction and was referred for further evaluation of proteinuria. All his medications were reviewed he is on lisinopril amlodipine hydralazine. In addition he is on chlorthalidone 50 mg and hydrochlorothiazide 50 mg. It is unclear if he is taking both these diuretics. 05/10/25 No specific complaints today [facility] Medical History Seizures Microalbuminuria Post-COVID chronic dyspnea Oxygen dependent GERD (gastroesophageal reflux disease) Diabetes mellitus Lumbar degenerative disc disease Pure hypercholesterolemia Essential hypertension Surgical History S/P matrixectomy of toe History of cervical spinal surgery Family History Father No problems noted. Mother No problems noted. Social History Housing: Apartment Alcohol intake: never Patient Tobacco Use Status: Never used Tobacco e-Cigarette/Vaping Use: Never Used Second Hand Smoke Exposure: No service: No Current occupational status: retired and disabled Current occupational exposures/hazards: No Cognitive needs: No Hearing needs: No Vision needs: Yes Physical Exam Vital Signs: Last Vital Signs Pulse 89 05/10/25 11:16 BP 176/88 H 05/10/25 11:16 Pulse Ox 98 05/10/25 11:16 Oxygen Delivery Method Room Air 05/10/25 11:16 BMI result Body Mass Index 31.3 Comfortable Neck supple no JVD. Lungs entry equal no rales. Heart S1-S2 heard no gallop or rub. Abdomen soft nontender. Neuro alert awake oriented. No asterixis. Extremities no edema. Results Reviewed Results Reviewed: Apr 2025 Renal USG US/US renal BI IMPRESSION: 1. Bilateral renal cysts. Mild nonspecific fullness of both renal pelvises. No gross hydronephrosis. 2. Otherwise normal examination. Nephrology Results: Hgb, (14.0-18.0) 12.0 g/dl L 04/12/25 WBC, (4.8-10.8) 8.7 X10*3/uL 04/12/25 Plt Count, (160-400) 228 X10*3/uL 04/12/25 Sodium, (135-145) 142 mmol/L 04/12/25 Potassium, (3.3-5.1) 3.8 mmol/L 04/12/25 Chloride, (96-108) 108 mmol/L 04/12/25 Carbon Dioxide, (22-29) 25 mmol/L 04/12/25 BUN, (9-16) 31 mg/dL H 04/12/25 Creatinine, (0.5-1.4) 2.39 mg/dL H 04/12/25 Calcium, (8.4-10.2) 8.9 mg/dL 04/12/25 Urine Protein, (Neg-Trace) 300 (3+) mg/dL H 04/12/25 Urine Creatinine 99.93 mg/dL 04/12/25 Renal US 05/08/25 Assessment & Plan Assessment & Plan (1) CKD (chronic kidney disease): Code(s): N18.9 - Chronic kidney disease, unspecified Category: Medical Plan Elderly man with chronic kidney disease with nephrotic range proteinuria in the setting of longstanding diabetes mellitus hypertension. Baseline renal function needs to be determined. About a year ago creatinine was 1.79. in January 2024 Currently at 2.3 On High dose diuretics renal ultrasonogram - un remarkable. Decrease Chlorthalidone to 25 mg daily from 50 mg Hypertension blood pressure - sub optimal Increase Hydralazine to 25 mg TID Proteinuria most likely due to underlying diabetic kidney disease. However non nephrotic diabetic causes should be ruled out. Encouraged him to bring all his medications next visit. Maintain blood pressure less than 130/80 Continue to avoid nephrotoxic agents including NSAIDs Orders: Orders Basic Metabolic Panel 1 Month N18.9 - Chronic kidney disease, unspecified Medications: Changed From hydralazine 10 mg PO TID 30 days 90 tabs 3RF I10 - Essential (primary) hypertension To hydralazine 25 mg PO TID 90 tabs 3RF 30 days I10 - Essential (primary) hypertension From chlorthalidone 50 mg PO DAILY 90 days 90 tabs 4RF To chlorthalidone 25 mg PO DAILY 90 tabs 4RF 90 days Coding Level of Care Code Est Pt Level 4 (24349) Diagnoses CKD (chronic kidney disease) N18.9
== END 2025-05-10 11:32 | disposition home or self-care (01) ==
LOC: HO.HKAS 11:15
PROVIDERS: PCP Internal Medicine; Visit Provider Internal Medicine Hypertension Specialist
DX: N18.9 Chronic kidney disease, unspecified (principal)
CPT/HCPCS: 99214

== ENCOUNTER → 2025-05-10 11:14 | Outpatient (BNVA) | payer OTHER, SELFPAY | PROVIDERS: PCP Internal Medicine; Visit Provider Internal Medicine Hypertension Specialist | DX: E11.22 Type 2 diabetes mellitus with diabetic chronic kidney disease (principal); I10 Essential (primary) hypertension; N18.9 Chronic kidney disease, unspecified; R80.8 Other proteinuria | CPT/HCPCS: 99212 ==

== ENCOUNTER 2025-05-22 10:47 | Outpatient (AMB) | payer OTHER, SELFPAY ==
--- OUTSIDE RECORDS SUMMARY | 2024-08-30 08:30 | XMS_ITS ---
Author Organization [facility] bianca [place] Address [address] [place] [address] Care Team Providers Care Pediatric Dentist Name Role Phone Pilar GASTELUM, Gaby Primary Care Provider Unavail able Nika Fuller Unavailable [phone] Tommy Eli [phone] Encounters Encounter Location Date Provider Diagnosis [address] [address] 08/30/2024 Tommy Eli Plan Of Treatment Next Appt Details Provider Name:Nika hinojosa, 06/01/2025 02:45:00 PM, [address] [place], [address], Progress Notes * Tyree LAFLEURDOB:1945 (79 yo M)Acc No.[id number]:08/30/2024 Progress Note Patient: Tyree WEBB Provider: Jammie Eli D.P.M. :1945 A ge:78 Y S ex:Male Date:08/30/2024 Address:[address] [place] [address], [address], [place], [place] Pcp:Gaby Quezada MD Subjective: * Chief Complaints: * * Medical History: Objective: * Vitals: Assessment: Plan: * Treatment: * Images: * The named appointment provid er may or may not be the originator of this progress note, and it is not deemed complete until electronically signed by the appointment provider. Sign off status: Pending * Provider: Jammie Eli D.P.M. Date: 0 08/30/2024 Generated for Nawaf dent/Vannessa/Von on: 1 07/22/2024 01:12 PM EST
--- OUTSIDE RECORDS SUMMARY | 2025-02-23 10:15 | XMS_ITS ---
Author Organization [facility] Address [address] [facility] [place] [address] Care Team Providers Care Commodities Requirements Analyst Name Role Phone Pilar GASTELUM, Gaby Primary Care Provider Unavail able Nika Fuller Unavailable [phone] Allergies Allergen (clinical drug ingredient) Drug/Non Drug Allergy documented on EMR Reaction Allergy Type Onset Date Status injectable steroids cortisone (uncoded) shortness of breath Allergy Active REASON FOR VISIT At Risk Footcare, Painful Nail(s) aggravated by shoes and causing difficulty standing/walking, Toe Irritation Medications Medication SIG (Take, Route, Frequency, Duration) Notes Start Date End Date Status Gabapentin 300 MG Oral; Duration: 30 Days Active Lisinopril 40 MG Oral; Duration: 30 Days Active Gabapentin 300 MG Oral; Duration: 30 Days Active Simvastatin 40 MG Oral; Duration: 30 Days Active Lisinopril 40 MG Oral; Duration: 30 Days Active GoodSense Aspirin 81 MG Oral; Duration: 30 Days Active GoodSense Aspirin 81 MG Oral; Duration: 30 Days Active amLODIPine Besylate 10 MG Oral; Duration: 30 Days Acti ve amLODIPine Besylate 10 MG Oral; Duration: 30 Days Acti ve Lisinopril 20 MG Oral; Duration: 30 Days Not-Taking Lisinopril 20 MG Oral; Duration: 30 Days Not-Taking Trulicity 0.75 MG/0.5ML Subcutaneous; Du ration: 28 Days Active Tradjenta 5 MG Oral; Duration: 30 Days Active Lisinopril 30 MG Oral; Duration: 30 Days Not-Taking Lisinopril 30 MG Oral; Duration: 30 Days Not-Taking Glimepiride 4 MG Oral; Duration: 30 Days Active Glimepiride 4 MG Oral; Duration: 30 Days Active glipiZIDE 10 MG Oral; Duration: 30 Days Active glipiZIDE 10 MG Oral; Duration: 30 Days Active levETIRAcetam 500 MG Oral; Duration: 30 Days Active levETIRAcetam 500 MG Oral; Duration: 30 Days Active Lisinopril 10 MG Oral; Duration: 30 Days Active Lisinopril 10 MG Oral; Duration: 30 Days Active metFORMIN HCl 1000 MG Oral; Duration: 30 Days Active Extra Depth Orthopedic Shoes, (1) Pair With (3) Pair Custom Heat Molded Multidensity Innersoles Dx: NIDDM/PVD(E11.51), Hammertoe Foot Deformity(M20.41,M20.42) , Preulcerative Skin Lesion(s)(L85.1) Wear Daily; Duration: 365 days Active metFORMIN HCl 1000 MG Oral; Duration: 30 Days Active Simvastatin 40 MG Oral; Duration: 30 Days Active Encounters Encounter Location Date Provider Diagnosis [facility] [address] 02/23/2025 Nika Fuller Type 2 diabetes mellitus with diabetic peripheral angiopathy without gangrene E11.51 ; Tinea unguium B35.1 ; Pain in right toe(s) M79.674 ; Pain in left toe(s) M79.675 ; Other hammer toe(s) (acquired), left foot M20.42 and Other hammer toe(s) (acquired), right foot M20.41 Assessments Encounter Date Diagnosis (ICD Code) Assessment Notes Treatment Notes Treatment Clinical Notes Section Notes 02/23/2025 Type 2 diabetes mellitus with diabetic peripheral angiopathy without gangrene (ICD-10 - E11.51) Q7(A), Q8(2B), Q9(1B,2C) 02/23/2025 Tinea unguium (ICD-10 - B35.1) 02/23/2025 Pain in right toe(s) (ICD-10 - M79.674) 02/23/2025 Pain in left toe(s) (ICD-10 - M79.675) 02/23/2025 Other hammer toe(s) (acquired), left foot (ICD-10 - M20.42) 02/23/2025 Other hammer toe(s) (acquired), right foot (ICD-10 - M20.41) Patient Educated with: DIABETIC FOOT CARE INSTRUCTIONS.p df (DIABETIC FOOT CARE INSTRUCTIONS.p df) Plan Of Treatment Medication Medication Name Sig Start Date Stop Date Notes Extra Depth Orthopedic Shoes , (1) Pair With (3) Pair Custom Heat Molded Multidensity Innersoles Dx: NIDDM/PVD(E11.51), Hammertoe Foot Deformity(M20.41,M20.42), Preulcerative Skin Lesion(s)(L85.1) Wear Daily; Duration: 365 days Treatment Notes Assessment Notes Other hammer toe(s) (acquired), right fo ot Patient Educated with: DIABETIC FOOT CARE INSTRUCTIONS.pdf (DIABETIC FOOT CARE INSTRUCTIONS.pdf) Next Appt Details Follow Up: 2 Months, Reason: Provider Name:Nika hinojosa, 06/01/2025 02:45:00 PM, [address] [place] [address], [place], [address], Procedure Notes * Category Sub-Category Detail Notes Debride Nail 6-10 Nail debridement Due to the cl inical pathology outlined in the exam findings, performance of this nail treatment is medically necessary as its management by an unskilled/untrained nonprofessional would put this patients foot and overall health at risk. Therefore, debridement to affected nail(s), as described in exam ( T1, T2, T3, T4, T6, T7, T8, T9, ), was performed exclusively by the physician of record to reduce/remove overall nail length, girth, thickness, subungual debris, and necrotic tissue, by manual and/or electrical means through the use of a nail nipper and/or dremel-type magnetic grinder operator, to a more viable healthy nail plate or bed tissue 6-10 nails in total. Silver nitrate was used for any petechial bleeding as necessary. Definitive antifungal treatment options, both pharmaceutical and surgical, have been reviewed and discussed with the patient. The patient solely prefers the use of intermittent/as needed professional debridement services for their nail condition and understands the need for additional periodic treatments to maintain effectiveness in symptomatic relief - 15827 Keratoma Treatment Parring or Cutting o f Benign Hyperkeratotic Lesion(s) (-56) 2-4 Lesions - Due to the at risk nature of the patients medical condition as documented in the exam findings, performance of this keratoderma treatment is medically necessary as its management by an unskilled/untrained nonprofessional would put this patients foot and overall health at risk. Therefore, the benign hyperkeratotic lesions, (2) in total, locations as stated and described in the exam ( plantar medial IPJ TA, T5), were pared, and/or cut utilizing a sterile 15 blade, tissue nippers, and/or power dremel instrumentation by the physician of record - 71031 Progress Notes * Tyree LAFLEURDOB:1945 (79 yo M)Acc No.[id number]:02/23/2025 Progress Note Patient: Tyree WEBB Provider: Tony Fuller DPM :1945 A ge:79 Y S ex:Male Date:02/23/2025 Address:[address] [place] [address] Pcp:Gaby Quezada MD Subjective: * Chief Complaints: * 1 . At Risk Footcare. 2. Painful Nail(s) aggravated by shoes and causing difficulty standing/walking. 3. Toe Irritation. * HPI: A t Risk footcare: Pt States Last PCP Visit: D ate 0 10/06/2024 T oe pain: Location: B /L feet. Duration: s everal years. Course: w orse. Aggravated by: s hoes, any pressure. Treatments: c hange in shoes. * Medical History: A rthritis, Asthma, Back,Hip,and Knee pain, Broken bones, Cataracts, Covid-19, Dementia, type II diabetes, High Blood Pressure, Chicken pox, Joint implants/screws, Eye injections. * Medications: T aking amLODIPine Besylate 10 MG Tablet Oral , Taking amLODIPine Besylate 10 MG Tablet Oral , Taking GoodSense Aspirin 81 MG Tablet Chewable Oral , Taking GoodSense Aspirin 81 MG Tablet Chewable Oral , Taking Gabapentin 300 MG Capsule Oral , Taking Gabapentin 300 MG Capsule Oral , Taking Lisinopril 40 MG Tablet Oral , Taking Lisinopril 40 MG Tablet Oral , Taking Simvastatin 40 MG Tablet Oral , Taking Simvastatin 40 MG Tablet Oral , Taking metFORMIN HCl 1000 MG Tablet Oral , Taking metFORMIN HCl 1000 MG Tablet Oral , Taking Lisinopril 10 MG Tablet Oral , Taking Lisinopril 10 MG Tablet Oral , Taking levETIRAcetam 500 MG Tablet Oral , Taking levETIRAcetam 500 MG Tablet Oral , Taking Glimepiride 4 MG Tablet Oral , Taking Glimepiride 4 MG Tablet Oral , Taking glipiZIDE 10 MG Tablet Oral , Taking glipiZIDE 10 MG Tablet Oral , Taking Tradjenta 5 MG Tablet Oral , Taking Trulicity 0.75 MG/0.5ML Solution Auto-injector Subcutaneous , Taking Extra Depth Orthopedic Shoes, (1) Pair With (3) Pair Custom Heat Molded Multidensity Innersoles . Dx: NIDDM/PVD(E11.51), Hammertoe Foot Deformity(M20.41,M20.42), Preulcerative Skin Lesion(s)(L85.1) Wear Daily , Not-Taking/PRN Lisinopril 30 MG Tablet Oral , Not-Taking/PRN Lisinopril 20 MG Tablet Oral , Not-Taking/PRN Lisinopril 30 MG Tablet Oral , Not-Taking/PRN Lisinopril 20 MG Tablet Oral * Allergies: i njectable steroids cortisone: shortness of breath - Allergy. Objective: * Vitals: * Examination: O phthalmology Referral: DIABETES EYE EXAM P rocedure Performed: Y es D ate of Exam Performed 0 01/05/2024 D iabetic Retinopathy Screening: Y es F indings of Diabetic Eye Exam: r etinopathy V ascular: DP PULSES (B): 0/4, B/L. PT PULSES (B): 0/4, B/L. CAPILLARY FILL TIME: delayed, all digits, B/L. TROPHIC CONDITION-TEXTURE/ELASTICITY/TURGOR/HAIR GROWTH (B):? decreased, fragile, thin, shiny, with sparse to absent hair growth, B/L. TEMPERTURE GRADIENT (C): decreased, cool to cool, proximal to distal, B/L. PIGMENTATION: b rawny, B/L. EDEMA (C): 1 /4, B/L. CLAUDICATION (C): d enies, B/L. REST PAIN: d enies, B/L. PARESTHESIA (C): a bsent, B/L. BURNING (C): a bsent, B/L. N ails: NAILS are: E longated, overgrown, dystrophic, lytic, greater than 3mm thick, discolored and friable with crumbly malodorous subungual debris, with pain on palpation, TA, T1, T2, T3, T4, T5, T6, T7, T8, T9. D ermatologic: SKIN FINDINGS: S kin exam reveals Keratotic lesion(s) located at, Medial plantar, IPJ, TA, T5. N eurological: SENSORY: N eurological exam reveals intact sensorium, pain sensation normal, vibration sensation intact, pinprick sensation is normal in the lower extremities, 5.07 monofilament test performed at plantar aspects of 5 varied sites per foot shows sensation, normal, B/L, Pt denies, anesthesia, burning, paresthesia, tingling, B/L. O rthopedic: MUSCLE STRENGTH: 5 /5 all groups in a symmetrical fashion, B/L. 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 DIGITAL DEFORMITIES: D igital contracture, PIPJ, 2-5 B/L, incompl-reducible to push-up test, no over, nor underlapping, t here is e vidence of shoe producing skin irritation. FOOTWEAR EVALUATION: w orn, non-supportive, shoe gear properties exacerbate patient's foot/toe deformity. G eneral Examination: GENERAL APPEARANCE: R eveals a pleasant, alert, well nourished, well-developed, well hydrated individual, who demonstrates proper attention to hygiene/body habitus, and is in no acute distress, Pt serves as own historian for office visit today. ORIENTED: p erson, place, and time. FOOT EXAM: L ower Extremity Neurological Exam performed:?Yes V isual exam of foot performed: Y es D ate 0 12/15/2024 Footwear Evaluation F ootwear Evaluation performed: Y es Assessment: * Assessment: 1. T ype 2 diabetes mellitus with diabetic peripheral angiopathy without gangrene - E11.51 N otes :Q7(A), Q8(2B), Q9(1B,2C) 2 . T inea unguium - B35.1 3 . P ain in right toe(s) - M79.674 4 . P ain in left toe(s) - M79.675 5 . O ther hammer toe(s) (acquired), left foot - M20.42 S pecify :Chronic problem, Worse (4),Rx Management (4) 6 . O ther hammer toe(s) (acquired), right foot - M20.41 (Primary) ?Specify :Chronic problem, Worse (4),Rx Management (4) Plan: * Treatment: * Procedures: D ebride Nail 6-10: Nail debridement D ue to the clinical pathology outlined in the exam findings, performance of this nail treatment is medically necessary as its management by an unskilled/untrained nonprofessional would put this patients foot and overall health at risk. Therefore, debridement to affected nail(s), as described in exam ( T 1, T2, T3, T4, T6, T7, T8, T9, ), was performed exclusively by the physician of record to reduce/remove overall nail length, girth, thickness, subungual debris, and necrotic tissue, by manual and/or electrical means through the use of a nail nipper and/or dremel-type magnetic grinder operator, to a more viable healthy nail plate or bed tissue 6- 10 nails in total. Silver nitrate was used for any petechial bleeding as necessary. Definitive antifungal treatment options, both pharmaceutical and surgical, have been reviewed and discussed with the patient. The patient solely prefers the use of intermittent/as needed professional debridement services for their nail condition and understands the need for additional periodic treatments to maintain effectiveness in symptomatic relief - 13819. K eratoma Treatment: Parring or Cutting of Benign Hyperkeratotic Lesion(s) ( -56) 2-4 Lesions - Due to the at risk nature of the patients medical condition as documented in the exam findings, performance of this keratoderma treatment is medically necessary as its management by an unskilled/untrained nonprofessional would put this patients foot and overall health at risk. Therefore, the benign hyperkeratotic lesions, (2) in total, locations as stated and described in the exam ( plantar medial IPJ TA, T5), were pared, and/or cut utilizing a sterile 15 blade, tissue nippers, and/or power dremel instrumentation by the physician of record - 57169. * Procedure Codes: 1 1721 DEBRIDE NAIL, 6 OR MORE, Modifiers: XS , 51015 TRIM SKIN LESIONS, 2 TO 4, Modifiers: XS * Preventive Medicine: Counseling: D iscussion: - 14: Office or other outpatient visit for the evaluation and management of an established patient, which required a medically appropriate history and/or examination and MODERATE level of DECISION MAKING for: 1 OR MORE CHRONIC PROBLEM(S) THATS WORSENING, 2 STABLE CHRONIC PROBLEMS, A NEWLY DIAGNOSED PROBLEM WITH UNCERTAIN PROGNOSIS, AN ACUTE COMPLICATED INJURY WITH MULTIPLE TREATMENT OPTIONS, OR AN ACUTE PROBLEM WITH ACCOMPANYING SYSTEMIC SYMPTOMS, THAT POSE(S) A MODERATE RISK OF MORBIDITY. THIS CONDITION MAY ALSO INCLUDE RX DRUG MANAGEMENT, OR A DECISON FOR MINOR SURGERY. The visit on the day of the encounter encompassed interpreting the data and educating the patient as to the nature of their condition, treatment options available according to their individual PMH, meds, allergies, and overall health/living conditions, as well as any potential risks or complications that may occur from a failure to adhere to, and participate in, the recommended course of therapy. The discussion included a complete verbal, and/or written explanation of the examination results, any x-rays taken, the proposed diagnosis, and outline of the treatment plan. A schedule for future care needs was also explained. The patient verbalized an understanding of the instructions at this time and agreed to be an active participant in their treatment. If the patient should think of any questions or concerns after the visit, I have encouraged the patient to call the office. D igital Surgery: D igital surgery was discussed with the patient, We elected to try conservative treatment at the present time, due to the patients medical history and increased asssociated post-operative risks. D igital Treatment: H T- I explained to the patient the possible etiologies of Hammertoes, including genetics/foot type/shoegear/activity level/exercise routine and the risks/benefits of all the different treatment options for their pain including: No treatment at all, Rest, Ice, New/supportive/wider/deeper Shoegear, Digital Padding/Strapping/Taping/Bracing/Gel protective sleeves, Foot/Ankle AFO Bracing, Stretching exercises, Deep Tissue Massage, Arch support/shoe inserts with splay metatarsal padding, and Custom orthoses. I insisted that any digital devices be removed daily and not worn overnight for safety. The patient is to carefully examine the toes daily for any skin irritation while using any splinting or padding device. The advantages and disadvantages of each option were discussed and the patients questions re: shoegear, padding, custom vs prefabricated inserts, activity level, and consistency in home treatment regimens for optimal success were answered to their verbally confirmed satisfaction. Cari gonzalez Gear Counseling: Cari GONZALEZ Rx - The patient was counseled in great detail on their muscoloskeletal foot and toe deformities which coincided with the dermatological presentations visualized on exam. We discussed how their deformities put the integrity of their feet at risk for potential pedal complications which makes the accomidative diabetic shoes and cutomizable inserts medically necessary. We discussed the different shoe and insert treatment types and options, as well as the important advantages for adhering to regularly wearing these accomidative devices daily. The patient was made aware of the fact that a failure to abide by these recommedations may be deleterious to their foot health as they are able to prevent many pedal complications such as skin irritation, skin ulceration, infection, and even loss of toe/foot/leg/or life. Time was also spent with the patient dispensing and discussing proper diabetic footcare techniques including daily skin moisturization, daily foot inspection for any interruption in skin integrity including open lesions, or sign of infection such as redness/malodor/drainage/swelling. Also discussed and recommended were procedures regarding daily shoe inspection for the presence of internal foreign bodies as well as any visualized irregular shoe or insert wear. Patient questions re: shoes, inserts, and self foot inspections were answered to their satisfaction as the patient verbally confirmed a full understanding of the above information. A Rx for Extra Depth Orthopedic Shoes with 3 pair of custom heat-molded inserts was dispensed. Screening/Special Tests: F all Risk Screening: N o falls in the past year F ALLS: Screening for Future Fall Risk Have you had any falls with injury in the past year? N o * Follow Up: 2 Months * Images: * The named appointment provid er may or may not be the originator of this progress note, and it is not deemed complete until electronically signed by the appointment provider. Sign off status: Pending * Provider: Tony Fuller, PAULETTE Date: 0 02/23/2025 Generated for Nawaf dent/Vannessa/Von on: 1 07/22/2024 01:12 PM EST History and Physical Notes * HPI (History of Present Illness) Category Sub-Category Detail Notes Category Not es Toe pain Location: B/L feet Duration: several years Course: worse Aggravated by: shoes, any pressure Treatments: change in shoes At Risk footcare Pt States Last PCP Visit: Date: 5 Examination Category Sub-Category Detail Notes Category Not es Neurological SENSORY: Neurological exa m reveals intact sensorium, pain sensation normal, vibration sensation intact, pinprick sensation is normal in the lower extremities, 5.07 monofilament test performed at plantar aspects of 5 varied sites per foot shows sensation, normal, B/L, Pt denies, anesthesia, burning, paresthesia, tingling, B/L Dermatologic SKIN FINDINGS: Skin exam reveal s Keratotic lesion(s) located at, Medial plantar, IPJ, TA, T5 Orthopedic FOOT MORPHOLOGY: (-) Charcot col lapse/destruction noted at MTJ FOOTWEAR EVALUATION: worn, non-supportiv e, shoe gear properties exacerbate patient's foot/toe deformity DIGITAL DEFORMITIES: Digital contracture , PIPJ, 2-5 B/L, incompl-reducible to push-up test, no over, nor underlapping, there is evidence of shoe producing skin irritation MUSCLE STRENGTH: 5/5 all groups in a symmetrical fashion, B/L General Examination GENERAL APPEARANCE: Reveals a pleasant, alert, well nourished, well-developed, well hydrated individual, who demonstrates proper attention to hygiene/body habitus, and is in no acute distress, Pt serves as own historian for office visit today FOOT EXAM: Lower Extremity Neurological Exa m performed:: Yes Visual exam of foot performed:: Yes Date: 12/15/2024 ORIENTED: person, place, and t [place] Footwear Evaluation Footwear Evaluation performe d:: Yes Ophthalmology Referral DIABETES EYE EXAM Procedure Perform ed:: Yes Date of Exam Performed: 01/05/2024 Diabetic Retinopathy Screening:: Yes Findings of Diabetic Eye Exam:: retinopa thy Vascular DP PULSES (B): 0/4, B/L PT PULSES (B): 0/4, B/L CAPILLARY FILL TIME: delayed, all digits , B/L TEMPERTURE GRADIENT (C): decreased, cool to cool, proximal to distal, B/L TROPHIC CONDITION-TEXTURE/ELASTICITY/TURGOR/HAIR GROWTH (B): decreased, fragile, thin, shiny, with sp arse to absent hair growth, B/L EDEMA (C): 1/4, B/L CLAUDICATION (C): denies, B/L REST PAIN: denies, B/L PIGMENTATION: brawny, B/L PARESTHESIA (C): absent, B/L BURNING (C): absent, B/L Nails NAILS are: Elongated, overg rown, dystrophic, lytic, greater than 3mm thick, discolored and friable with crumbly malodorous subungual debris, with pain on palpation, TA, T1, T2, T3, T4, T5, T6, T7, T8, T9
--- NOTE | 2025-05-22 10:49 | A.OFFVIS_ITS ---
Intake Visit Reasons: Injection training Intake Note: Patient is present for INJECTION TRAINING Urology Medication:NONE Antibiotic Allergy:NONE Blood Thinner:ASPIRIN Corporate Risk Analyst Required: No Allergies cortisone Adverse Reaction (Intermediate, Verified 05/22/25 11:56) Cough Medication List - Last Reconciled 05/22/25 by CAMRON Cutler- Advair Diskus 250-50 mcg/dose (fluticasone propion-salmeterol) 1 inh inhalation BID NS amlodipine 10 mg PO DAILY 90 days aspirin 1 tab PO DAILY 90 days blood pressure test kit-large (Advocate Blood Pressure Monitor kit) As directed blood sugar diagnostic (Spect[employer]Sensors Ultra Test strips) Use to check blood sugar once a day blood-glucose meter ([employer] Ultra2 Meter) As directed chlorthalidone 25 mg PO DAILY 90 days cholecalciferol (vitamin D3) 25 mcg PO DAILY 90 days docusate sodium (Colace) 100 mg PO DAILY PRN dulaglutide (Trulicity) 0.75 mg (0.5 mL) subcut QWEEK 90 days gabapentin 300 mg PO BEDTIME 90 days glimepiride 4 mg PO DAILY 90 days glipizide 10 mg PO DAILY 90 days hydralazine 25 mg PO TID 30 days lancets ([employer] Delica Lancets) Use to check blood sugars once a day levetiracetam 1,000 mg (2 x 500 mg) PO BID 30 days linagliptin (Tradjenta) 5 mg PO DAILY 90 days lisinopril 40 mg PO DAILY 90 days metformin 1,000 mg PO BID 90 days miscellaneous medical supply As directed omeprazole 20 mg PO DAILY simvastatin 40 mg PO BEDTIME 90 days [Trapeze bar As directed] [wheelchair As directed] HPI Comments Details: Tyree is a 79-year-old male patient of Dr. Villafuerte. He has a past medical history of seizures, microalbuminuria, oxygen dependency treated for nocturia hypoxemia, GERD, diabetes, lumbar degenerative disc disease, hypercholesteremia, and hypertension. He presents to the office today for follow-up of his erectile dysfunction and penile injection teaching. Labs are as follows: A1c: 09/10 9.9, 02/07 71, 01/10 6.7,06/12 5.4 PSA: 02/10 3.6 In office urinalysis results reviewed with the patient today 3+ proteinuria. He reports since his last office visit here he has established care with Nephrology. He reports having a 1 month follow-up as well as recent medication changes with Nephrology. We did discuss at length potential causes of ED as well as further treatment options and risks and benefits of these treatment options. All questions were answered. Penile injection was performed in office: Penile injection performed in the office Patient provided medication Good response to TriMix initial 30 units Sterile technique used Teaching provided for identification of injection sites CPT 62476 Education provided Erectile dysfunction Failed oral therapy Here for injectable therapy Good response to 30 units. Suggest 40 units of TriMix initial We did discussed at length the importance of management and diabetes for improvement in ED as well as overall health and well-being. Information and education was provided regarding penile injection therapy. He otherwise denies any bothersome urinary issues. He denies urinary urgency, urinary frequency, incontinence, nocturia, hematuria, dysuria, foul smelling urine, changes to urinary stream, flank pain, fever, and or chills. He is happy with his current voiding parameters. [facility] Medical History Seizures Microalbuminuria Post-COVID chronic dyspnea Oxygen dependent GERD (gastroesophageal reflux disease) Diabetes mellitus Lumbar degenerative disc disease Pure hypercholesterolemia Essential hypertension Surgical History S/P matrixectomy of toe History of cervical spinal surgery Family History Father No problems noted. Mother No problems noted. Social History Housing: Apartment Alcohol intake: never Patient Tobacco Use Status: Never used Tobacco e-Cigarette/Vaping Use: Never Used Second Hand Smoke Exposure: No service: No Current occupational status: retired and disabled Current occupational exposures/hazards: No Cognitive needs: No Hearing needs: No Vision needs: Yes Review of Systems Const All systems reviewed & are unremarkable except as noted in HPI and below Physical Exam Const General: cooperative, healthy appearing, comfortable, no acute distress, well developed, alert and awake Orientation/consciousness: patient oriented x3 Limitations: no limitations HEENT Head: Yes normal to inspection, Yes normocephalic and Yes atraumatic Ears: hearing grossly normal bilaterally Eyes General: appearance normal, both eyes and all related structures Neck Neck: Yes normal visual inspection and Yes trachea midline Chest Chest palpation & inspection: normal inspection of the chest Resp Effort & Inspection: normal respiratory effort and able to speak in complete sentences Cardio Rate: regular rate GI Inspection: Yes normal to inspection General: Yes no CVA tenderness Penis: normal penis and uncircumcised Meatus: meatus normal Scrotum: scrotum normal Testes: Testes normal Back/Spine/Pelvis Back: no CVA tenderness Skin General skin exam: no rashes or lesions noted Neuro General: patient oriented x3 Extrem General: Yes normal to inspection Psych Appearance: grossly normal and well kempt Mental Status: mental status grossly normal Speech and movement: Normal speech and movement present and Clear speech present Affect: normal affect Attitude: cooperative Thought process: Normal thought process present Thought content: Normal thought content present Insight: Fair insight present (Psych) Judgement: Fair judgement present (Psych) Results AMB Urinalysis, Automated UA Leukoctes 0 Jacky/uL Last Edit by AUBREY Souza on 05/22/25 11:12 UA Nitrite Negative Last Edit by AUBREY Souza on 05/22/25 11:12 UA Urobilinogen 0.2 mg/dL Last Edit by AUBREY Souza on 05/22/25 11:1 2 UA Protein 300 mg/dL Last Edit by AUBREY Souza on 05/22/25 11:12 UA pH 7.0 Last Edit by AUBREY Souza on 05/22/25 11:12 UA Blood 0 Darren/uL Last Edit by AUBREY Souza on 05/22/25 11:12 UA Specific [place] 1.015 Last Edit by AUBREY Souza on 05/22/25 11: 12 UA Ketone Negative Last Edit by AUBREY Souza on 05/22/25 11:12 UA Bilirubin 0 mg/dL Last Edit by AUBREY Souza on 05/22/25 11:12 UA Glucose 0 mg/dL Last Edit by AUBREY Souza on 05/22/25 11:12 Results Reviewed Results Reviewed: Laboratory Last Values Urine pH (Auto) 7.0 05/22/25 11:11 Specific [place] (Auto) 1.015 05/22/25 11:11 Urine Protein (Auto) 300 mg/dL 05/22/25 11:11 Glucose (UA)(Auto) 0 mg/dL 05/22/25 11:11 Urine Ketones (Auto) Negative 05/22/25 11:11 Urine Blood (Auto) 0 Darren/uL 05/22/25 11:11 Urine Nitrite (Auto) Negative 05/22/25 11:11 Urine Bilirubin (Auto) 0 mg/dL 05/22/25 11:11 Urine Urobilinogen (Auto) 0.2 mg/dL 05/22/25 11:11 Leukocyte Esterase (Auto) 0 Jacky/uL 05/22/25 11:11 Assessment & Plan Assessment & Plan (1) Erectile dysfunction associated with type 2 diabetes mellitus: Code(s): - Type 2 diabetes mellitus with other specified complication; N52.1 - Erectile dysfunction due to diseases classified elsewhere Category: Medical Plan In office urinalysis results reviewed with the patient today; as noted above; continue to follow-up nephrology regarding proteinuria. Penile injection teaching was performed; good response with 30 units in office We discussed 35-40 units at home. Penile injection educational materials were provided. All questions were answered. He denies any bothersome urinary issues. He reports be happy with current voiding parameters. We did discussed the importance of continuing to manage diabetes, hypertension and hyperlipidemia in relation to erectile dysfunction as well as overall health and well-being. Will obtain PSA, A1c, and testosterone in 3 months Follow-up in 3-6 months with labs; or sooner with any issues, concerns, and or questions Orders: Orders AMB Urinalysis Automated Today Z13.9 - Encounter for screening, unspecified Hemoglobin A1c 3 Months E11.69 - Type 2 diabetes mellitus with other specified complication, N52.1 - Erectile dysfunction due to diseases classified elsewhere PSA,Total (Free>4and<10) 3 Months E11. - Type 2 diabetes mellitus with other specified complication, N52.1 - Erectile dysfunction due to diseases classified elsewhere Testosterone, Free/Total 3 Months E11.69 - Type 2 diabetes mellitus with other specified complication, N52.1 - Erectile dysfunction due to diseases classified elsewhere Patient Instructions: The patient had an opportunity to ask questions regarding the treatment plan. All questions were answered. Physical exam, labs, and imaging were discussed and reviewed in detail. As well as risks, benefits, and discussion of treatment choices. No major barriers to understanding were identified. The patient expressed understanding and agreement with the above treatment plan. The patient was made aware they should contact our office by phone for worsening of their current condition, the appearance of new symptoms, or with any questions or concerns. Compliance is encouraged with any medications and follow up testing that is ordered. It is a privilege to be allowed the opportunity to participate in? your urological care.? Again, if you have any questions or concerns If you have any questions or concerns please do not hesitate to contact me. The office is [phone]. This note is constructed using voice recognition software. While every effort has been made to ensure accuracy seismometer operator errors may have been included. Yours sincerely, ALAYNA Cutler Coding Level of Care Code Est Pt Level 3 (74688) Complex EM visit Add On G2211 Diagnoses Erectile dysfunction associated with type 2 diabetes mellitus E11.69; N52.1
--- OUTSIDE RECORDS SUMMARY | 2025-05-22 13:13 | XMS_ITS | Patient Health Record ---
[facility] Organization [facility] Address [address] [place] [address] Care Team Providers Care Nurse First Assist Name Role Phone Pilar GASTELUM, Gaby Primary Care Provider Unavail able Nika Fuller Unavailable [phone] Tommy Eli Unavailable [phone] Allergies Allergen (clinical drug ingredient) Drug/Non Drug [...] Problem Acquired hammer toe of right foot (2769882224580 105) Other hammer toe(s) (acquired), right foot (M20.41) Active confirmed Problem Type 2 diabetes mellitus with peripheral angiopathy (251330836) Type 2 diabetes mellitus with diabetic peripheral angiopathy without gangrene (E11.51) Active confirmed Q7(A), Q8(2B), Q9(1B,2C) Problem Acquired hammer toe of left foot (0878367555396 103) Other hammer toe(s) (acquired), left foot (M20.42) Active confirmed Vital Signs Blood pressure diastolic 70 mm Hg 12/15/2024 Height 5ft 8in in 12/15/2024 Blood pressure systolic 133 mm Hg 12/15/2024 Weight 180 lbs 12/15/2024 BMI 27.37 kg/m2 12/15/2024 Procedures Procedure Date Ordered Date Performed Result Body Sit e 99476-QLNPLQJ NAIL, 6 OR MORE 06/21/2024 N/A [id number] NAIL, 6 OR MORE 09/29/2024 N/A Encounters Encounter Location Date Provider Diagnosis [address] [address] 06/21/2024 Tommy Eli Type 2 diabetes mellitus with diabetic peripheral angiopathy without gangrene E11.51 ; Tinea unguium B35.1 ; Pain in right toe(s) M79.674 and Pain in left toe(s) M79.[address] [address] 09/29/2024 Tommy Eli Controlled type 2 diabetes mellitus with diabetic polyneuropathy, without long-term current use of insulin E11.42 and Tinea unguium B35.[address] [address] 12/15/2024 Nika Fuller Type 2 diabetes mellitus with diabetic peripheral angiopathy without gangrene E11.51 ; Tinea unguium B35.1 ; Pain in right toe(s) M79.674 ; Pain in left toe(s) M79.675 ; Other hammer toe(s) (acquired), left foot M20.42 and Other hammer toe(s) (acquired), right foot M20.[address] [address] 08/01/2024 Tommy Eli [address] [address] 2024 Tommy Eli Assessments Encounter Date Diagnosis [...] Treatment Pending Test Test Name Order Date [id number] NAIL, 6 OR MORE 06/21/2024 [id number] NAIL, 6 OR MORE 09/29/2024 Next Appt Details Provider Name:Nika hinojosa, 06/01/2025 02:45:00 PM, [address] [facility], [place], [address], Insurance Providers Payer Name Payer Address Payer Phone Subscriber Number Group Number Insured Name Patient Relationship to Insured Coverage Start Date Coverage End Date [facility] [employer] Claims [address] [place] [id number] Tyree Lafleur Self - patient is the insured Medical (General) History Medical History History ICD Code Arthritis asthma Back,Hip,and Knee pain Broken bones Cataracts covid-19 Dementia type II diabetes High Blood Pressure Chicken pox Joint implants/screws eye injections Surgical History Surgery Date(Month/Year) bone implant 1970
== END 2025-05-22 11:49 | disposition home or self-care (01) ==
LOC: HO.HUSH 10:48
PROVIDERS: PCP Internal Medicine; Visit Provider Nurse Practitioner Family
DX: E11.69 Type 2 diabetes mellitus with other specified complication (principal); N52.1 Erectile dysfunction due to diseases classified elsewhere; Z13.9 Encounter for screening, unspecified
CPT/HCPCS: 99213; G2211

== ENCOUNTER → 2025-05-22 10:47 | Outpatient (BNVA) | payer OTHER, SELFPAY | PROVIDERS: PCP Internal Medicine; Visit Provider Nurse Practitioner Family | DX: E11.69 Type 2 diabetes mellitus with other specified complication (principal); N52.1 Erectile dysfunction due to diseases classified elsewhere; Z13.9 Encounter for screening, unspecified | CPT/HCPCS: 81003; 99212 ==

== ENCOUNTER 2025-06-07 13:11 | Outpatient (AMB) | payer OTHER, SELFPAY ==
--- OUTSIDE RECORDS SUMMARY | 2024-01-07 09:17 | XMS_ITS | Continuity of Care Document ---
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 Role Phone Hollis BECKER, Martha Unavailable U navailable Allergies, Adverse Reactions, Alerts Substance Reaction Status Criticality No Known Drug Allergies Active No I nformation Medications Medication Instructions Dosage Effective Dates (start - stop) Status Comments gabapentin 300 mg capsule TAKE ONE CAPSULE BY MOUTH ONCE DAILY AT BEDTIME ^1R4 - Active glimepiride 1 mg tablet take 1 tablet by oral route every day 1 MG - Active hydralazine 10 mg tablet TAKE HALF TABLET (5 MG) BY MOUTH TWO TIMES A DAY WITH FOOD ^HR1,HR4 - Active Jardiance 10 mg tablet take 1 tablet by oral route every day in the morning 10 MG - Active lisinopril 10 mg tablet REDUCE DT KIDNEY FUNCTION: 10mg qd osorio - Active THE 20mg LISINOPRIL IS BEING D/C'd omeprazole 20 mg capsule,delayed release TAKE ONE CAPSULE BY MOUTH ONCE DAILY 30 MINUTES TO 1 HOUR BEFORE BREAKFAST ^1R1 - Active FreeStyle Ethan 2 Sensor kit use as directed - Active DELIVER TO [facility] [address] Trulicity 1.5 mg/0.5 mL subcutaneous pen injector inject (1.5MG) by subcutaneous route every week 1.5 MG - Active LIDOCAINE PAIN RELIEF 4% PTCH PLACE UP TO 3 PATCHES ON THE BODY DAILY NEEDED, 12 HOURS ON 12 HOURS OFF (BULK) - Active HYDROCHLOROTHIAZIDE 25MG TABS TAKE ONE TABLET BY MOUTH ONCE DAILY ^ - Active metformin 500 mg tablet REDUCE DT KIDNEY FUNCTION: take 1 tablet by oral route 2 times every day with morning and evening meals - Active ALBUTEROL SULFATE 2.5 MG/3ML NEBU INHALE THE CONTENTS OF 1 VIAL VIA NEBULIZER TWO TIMES A DAY NEEDED (BULK) - Active AMLODIPINE BESYLATE 10MG TABS TAKE ONE TABLET BY MOUTH EVERY DAY ^ - Active Shingrix (PF) 50 mcg/0.5 mL intramuscular suspension, kit inject 0.5 milliliter by intramuscular route once-then repeat in 2-6 months - Active Artificial Tears (carboxymethylcellulose ) 1 % eye drops place one drop in both eyes up to 4 times a day as needed for dry eye - Active Debrox 6.5 % ear drops instill 5 drop by otic route 2 times every day into affected ear(s) 5.00 drop - Active Nebulizer Machine with Accessories INHALATION to be used with albuterol nebulizing solution - Active Voltaren Arthritis Pain 1 % topical gel apply 2 gram by topical route 2 times every day to the affected area(s) as needed - Active FreeStyle Ethan 2 Sensor kit use as directed - Active DELIVER TO HOME FreeStyle Ethan 2 [place] use as directed - Active PLEASE DELIVER TO HOME Prevnar 20 (PF) 0.5 mL intramuscular syringe inject 0.5 milliliter by intramuscular route once 0.50 milliliter - Active Please deliver to site in Spring Advance Directives Directive Yes / No Effective Date File Name No Information Encounters Encounter Description Practice Location Reason(s) For Visit Diagnoses Date Provider [facility], [address] [place] [address], [place], [place], [id number], [place] tel:[phone] Spring No Information 4 [facility]. [address], [place], [place], [id number], [place]. tel:[phone] [facility], [address], [place], [place], [id number], [place] tel:[phone] Spring No Information 4 [facility]. [address] [place], [place], [id number], [place]. tel:[phone] [facility], [address], [place], [place], [id number], [place] tel:[phone] Spring Acute Visit (chief complaint) Illness, unspecifiedLong toenail 4 [facility]. [address] [place], [place], [id number], [place]. tel:[phone] [facility], [address], [place], [place], [id number], [place] tel:[phone] Spring Encounter for [facility] adult medical examination without abnormal findings 4 [facility]. [address] [place], [place], [id number], [place]. tel:[phone] [facility], [address], [place], [place], [id number], [place] tel:[phone] Spring No Information 3 Bhagavatula Ujjwala. [address] [place], [place], [id number], [place]. tel:[phone] [facility], [address], [place], [place], [id number], [place] tel:[phone] Spring No Information 3 Bhagavatula Ujjwala. [address] [place], [place], [id number], [place]. tel:[phone] [facility], [address], [place], [place], [id number], [place] tel:[phone] Spring No Information 3 Bhagavatula Ujjwala. [address] [place], [place], [id number], [place]. tel:[phone] [facility], [address], [place], [place], [id number], [place] tel:[phone] Spring Encounter for rehabilitation evaluation 3 Ellie Nesbitt. [address] [place], [id number], [place]. tel:[phone] [facility], [address], [place], [place], [id number], [place] tel:[phone] Spring Type 2 diabetes mellitus with stage 3b chronic kidney disease, without long-term current use of insulinChronic kidney disease, stage 3b 3 Bhagavatula Ujjwala. [address] [place], [id number], [place]. tel:[phone] [facility], [address], [place], [place], [id number], [place] tel:[phone] Spring No Information 3 Bhagavatula Ujjwala. [address] [place], [id number], [place]. tel:[phone] [facility], [address], [place], [place], [id number], [place] tel:[phone] Spring No Information 3 Bhagavatula Ujjwala. [address] [place], [id number], [place]. tel:[phone] [facility], [address], [place], [place], [id number], [place] tel:[phone] Spring Stage 3a chronic kid gifty disease (CKD)Type 2 diabetes mellitus with stage 3b chronic kidney disease, without long-term current use of insulinChronic kidney disease, stage 3b 3 Bhagavatula Ujjwala. [address] [facility] [address], [place], [place], [id number], [place]. tel:[phone] [facility], [address] [facility], [place], [place], [id number], [place] tel:[phone] Spring Encounter for rehabilitation evaluation Sep-2 3 Avni Correa. [address] [place], [place], [id number], [place]. tel:[phone] [facility], [address] [facility], [place], [place], [id number], [place] tel:[phone] Spring Encounter for rehabilitation evaluation Sep-2 3 Bryce Wright. [address] [place], [place], [id number], [place]. tel:[phone] [facility], [address] [facility], [place], [place], [id number], [place] tel:[phone] Spring No Information Sep- 3 Bhagavatula Ujjwala. [address] [facility] [place], [id number], [place]. tel:[phone] [facility], [address] [facility] [facility], [place], [place], [id number], [place] tel:[phone] Spring Semi-Annua l (chief complaint) Encounter for nutritional assessment Sep- 3 Genia Garcia. 101 [facility], [place], [address]. tel:[phone] [facility], [address] [facility], [place], [place], [id number], [place] tel:[phone] Spring Semi-Annua l (chief complaint) Primary snoringLung fibrosisPleural calcificationCognitive impairmentHemiballismus H/O macrocytic anemiaStage 3a chronic kidney disease (CKD)Constipation, unspecified constipation typePatulous lower esophageal sphincterDM type 2 with diabetic peripheral neuropathyType 2 diabetes mellitus with stage 3a chronic kidney disease, without long-term current use of insulinHyperlipidemia, unspecified hyperlipidemia typeHypertensive heart and kidney disease without heart failure and with stage 3a chronic kidney disease 3 Maddisonagaevelintula Ujjwala. [address] [place], [id number], [place]. tel:[phone] [facility], [address], [place], [place], [id number], [place] tel:[phone] Spring No Information 3 Juankatie Robertsonn. [address] [place], [place], [id number], [place]. tel:[phone] [facility], [address], [place], [place], [id number], [place] tel:[phone] Spring DM type 2 with diabe tic peripheral neuropathy 3 Os Lisa. [address] [facility] [place], [id number], [place]. tel:[phone] [facility], [address], [place], [place], [id number], [place] tel:[phone] Spring Shortness of breath 3 Kj Childresswala. [address] [facility] [place], [id number], [place]. tel:[phone] [facility], [address], [place], [place], [id number], [place] tel:[phone] Spring Fall (chief complaint) Leg pain, rightType 2 diabetes mellitus with stage 3a chronic kidney disease, without long-term current use of insulinChronic kidney disease, stage 3a 3 Maddisonagaevelintula Ulambertojwala. [address] [facility] [place], [id number], [place]. tel:[phone] [facility], [address], [place], [place], [id number], [place] tel:[phone] Spring OV (chief complaint) Type 2 diabetes mellitus with stage 3a chronic kidney disease, unspecified whether intermodal owner operator truck driver insulin useChronic kidney disease, stage 3aLong-term (current) use of injectable non-insulin antidiabetic drugs 3 Konstantin Henderson. [address], [place], [place], [id number], [place]. tel:[phone] [facility], [address], [place], [place], [id number], [place] tel:[phone] Spring No Information 3 Konstantin Henderson. [address], [place], [place], [id number], [place]. tel:[phone] [facility], [address], [place], [place], [id number], [place] tel:[phone] Spring No Information 3 Konstantin Henderson. [address], [place], [place], [id number], [place]. tel:[phone] [facility], [address], [place], [place], [id number], [place] tel:[phone] Spring Semi-Annua l (chief complaint) Primary snoringSlow transit constipationShortness of breathPosttraumatic painHemiballismusPatulo us lower esophageal sphincterLung fibrosisPleural calcificationAtypical chest painChronic pain of both kneesPain in left kneeOther chronic painCognitive impairmentH/O macrocytic anemiaStage 3a chronic kidney disease (CKD)Type 2 diabetes mellitus with stage 3a chronic kidney disease, without long-term current use of insulinDM type 2 with diabetic peripheral neuropathyHyperlipidemi a, unspecified hyperlipidemia typeHypertensive heart disease with stage 3a chronic kidney disease, unspecified whether heart failure presentLong term current use of oral hypoglycemic drugLong-term (current) use of injectable non-insulin antidiabetic drugs 3 Kj Womack. [address], [place], [place], [id number], [place]. tel:[phone] [facility], [address], [place], [place], [id number], [place] tel:[phone] Spring Encounter for genera l adult medical examination without abnormal findings 3 Konstantin Henderson. [address], [place], [place], [id number], [place]. tel:[phone] [facility], [address], [place], [place], [id number], [place] tel:[phone] Spring OV (chief complaint) Hypertensive heart and kidney disease without heart failure and with stage 3a chronic kidney diseaseChronic kidney disease, stage 3a 2 Konstantin Henderson. [address] [facility] [place], [id number], [place]. tel:[phone] [facility], [address] [facility], [place], [place], [id number], [place] tel:[phone] Spring OV (chief complaint) Hypertensive heart and kidney disease without heart failure and with stage 2 chronic kidney diseaseChronic kidney disease, stage 2 (mild)Type 2 diabetes mellitus with stage 2 chronic kidney disease, without long-term current use of insulinChronic pain of both kneesPain in left kneeOther chronic pain 2 Konstantin Henderson. [address] [place], [id number], [place]. tel:[phone] [facility], [address] [facility], [place], [place], [id number], [place] tel:[phone] Spring Encounter for genera l adult medical examination without abnormal findings 2 Janny Ellis. [address] [place], [id number], [place]. tel:[phone] [facility], [address] [facility], [place], [place], [id number], [place] tel:[phone] Spring Encounter for nutritional assessmentDiabetic nutritional counseling completed 2 Isabel Lyons. [address] [place], [id number], [place]. tel:[phone] [facility], [address] [facility], [place], [place], [id number], [place] tel:[phone] Spring Encounter for rehabilitation evaluation 2 Pipo Hightower. [address] [place], [address]. tel:[phone] [facility], [address] [address], [place], [place], [id number], [place] tel:[phone] Spring Encounter for rehabilitation evaluationOther chronic pain 2 Reece Patel. [address] [place], [place], [id number], [place]. tel:[phone] [facility], [address] [facility], [place], [place], [id number], [place] tel:[phone] Spring PEE (chief complaint) Coronary artery calcification seen on CAT scanHyperlipidemia, unspecified hyperlipidemia typeStage 3a chronic kidney disease (CKD)Hypertensive heart and kidney disease without heart failure and with stage 3a chronic kidney diseaseType 2 diabetes mellitus with stage 3a chronic kidney disease, without long-term current use of insulinLong term (current) use of oral hypoglycemic drugsPatulous lower esophageal sphincterH/O macrocytic anemiaCognitive impairmentH/O tonic-clonic seizuresPleural calcificationLung fibrosisDM type 2 with diabetic peripheral neuropathyEncounter for general health examination 2 Juan Child. [address] [place], [place], [id number], [place]. tel:[phone] [facility], [address] [address], [place], [place], [id number], [place] tel:[phone] Spring Encounter for rehabilitation evaluation 2 Reecetheodore Patel. [address] [place], [place], [id number], [place]. tel:[phone] Family History Family Member Type Diagnosis Age At Onset No Information Immunizations Vaccine Date Status Comments FLUAD QUAD - SENIO R DOSE Nov-24-2023 administered Source: New Immuniza tion Record Zoster recombinant subunit administered S ource: New Immunization Record Tdap administered Source: New Imm unization Record Prevnar 20 administered Source: New Imm unization Record Fluzone High-Dose administered Source: New Immunization Record Payers Payer name Insurance type Covered democrat ID Authoriza tion(s) [facility] 16 [id number] [facility] 16 [id number] [facility] 16 [id number] [facility] 16 [id number] [facility] 16 [id number] Social History Type Description Quantity Date Captured Comments Sex Male Smoking Status No Information Chief Complaint And Reason For Visit No Information Plan Of Treatment Date Type Action Status Referral Ordered: Dentistry (related to Encounter for general health examination) ordered Referral Ordered: Referrals: Dentistry ordered Referral Ordered: Referrals: [facility] [facility] ordered Referral Ordered: Referrals: Podiatry. Evaluate and treat Appointment date/timeframe: 05/04/2023 ordered Referral Ordered: Referrals: [facility] [place]ointment date/timeframe: 10/27/2022 ordered Referral Ordered: Referrals: Otolaryngology. Follow-up and treat Appointment date/timeframe: 08/25/2022 ordered Referral Referred To: [facility] Ordered: Referrals: Dentistry. [facility]. Evaluate and treat Appointment date/timeframe: 10/15/2022 ordered [place] [facility] [place]: [place]errals: [facility]. [facility] [place] and treat Appointment date/timeframe: 10/15/2022 ordered Ref[place] [facility] [place]dered: Referrals: [place] [facility] [place] and treat ordered Future Order: Radiology Order Jaqui uriostegui study, unattended ([id number]), Ordered on: Ordered History Of Present Illness Encounter Date Complaint History Of Prese nt Illness Acute Visit PPT is a 77 yr o ld male seen in the clinic with Oma Mosquera MA as cdc associate as PPT is Maltese speaking, seen for respiratory s/sx without cough, States his is coughing and he feels like he is coming down with something. Vitals stable not fever no cough lung sounds clear. He also state that he has not seen the chronometer assembler and adjuster and that his toe nails are catching on his socks and causing him pain. Toe nail jagged and thicken, Provider provided nail care Semi-Annual Comments: Partic ipant is being examined during the COVID-19 Pandemic. Appropriate precautions were used given CDC recommendations and available resources. SUMMARY:Maylin is a 77 year old man who has been enrolled in the PACE program since 04/19/22 and is being seen for his biannual exam. Interpretation given by Norma Garcia MA.Baseline functional and neurologic function: Transfer and bed mobility independent, ambulates independent, cane and RW prnAbility to communicate/make decisions: maylin makes his own decisions, HCP paperwork in chart There have been no hospitalizations, SNF admission and/or ER visits in the last six months per Collect[facility].NO falls documented per SE incident reporting SERVICES/CONSULTANTS:[facility] [place] - maylin still wantsNotes he is feeling good. He does not wear a ethan anymore and is not using Trulicity anymore. He notes he continues having issues with his vision, saw optometry on 01/27/23 but is not using the glasses. He declined ophthalmology. He notes he is wearing sunglasses due to the light being too bright. He notes he sleeps well but wakes up when his moves her legs. He still sleeps with multiple pillows. He is awaiting his sleep study. He has cut down his sugar intake and is drinking grapefruit juice. He isn't on any medications that have a strong interaction.Labs reviewed. Labs today ordered01/15/23 Na140 K4.3 BUN16 Cr1.58 eGFR 45 LFTs normal A1c 5.56/8/23 WBC9.4 H/H 14.3/42 Aky474 BNP 66 Folate 18.1 A1c 5.3 HZN339/25/23 Skxhpbns84 %sat42 PEII866 Na135 K4.3 Mg2.4 Phos3.7 BUN22 Cr1.46 eGFR49 LFTs normal Alb/Cr ratio 985 Ca 8.9 Ionized Ca 5.2 TSH2.34 [id number] FIN786 HDL46 GI35454/ Na 140 K4.2 BUN20 Cr1.38 eGFR53 Ca9.511/ Na140 K4.1 BUN22 Cr1.46 eGFR50 Ca9.511/03/10 Na141 K4.2 BUN19 Cr1.37 eGFR53 AST19 ALT10 AP78 Ca9.3 Alb4.1 Tbili 0.4 HBV core Ab reactive, HBV surface Ab reactive, HCV ab non kavrfreo20/13/22 WBC 11.8 H/H13.7/41.2 Mvs885 Na142 K4.5 BUN17 Cr1 eGFR78 AST36 ALT63 AP70 Tbili0.5 Alb4.5 Ca9.8 Urine Alb/Cr ratio 1268 A1c 8.8Allergies: NKDAHCP reviewed. Advance Directives reviewed.MOLST done: 10/19/22 Full codeLast MoCa: 05/01/22GOC: Longevity Diabetes monitoring: Ppt doesn't want to check it anymore Semi-Annual Fall Comments: Ppt se en for post fall visit. he notes last week to have fallen off a chair when trying to put up curtains. he fell on his R side and injured his R upper thigh. He declined a provider visit last week, but is noted to have come for vision today.He states initially he had a lot of pain, using his cane and the muscle rub given by provider. He notes that the pain has since improved and he ambulates independently. He still uses the pain cream with 100% improvement of pain. He notes his R thigh used to be very swollen, with improved swelling. His ankle, hip, knee, elbow, shoulder range of motion on the R side is intact. Also discussed his A1c results and medication management. OV Tyree Garcia Maddison era TO DOLabs - a1c, CMPDc glipizideHPIppt joined SE using januvia and glipizide last zsnnaxJ0r was 8.8%Dc'd januvia and added Trulicity On 12/25/22 a1c was 5.3%GFR was down to 49Ppt scheduled for OV to assess--CURRENTLYPpt seen in the clinicLilly translates He confirms that he is taking both the tablet and injectionHe is agreeable to stopping the sulfonylurea He will continue the injection Otherwise no questions or concerns Labs today - a1c and CMP ROSNo N V F C CP SOBNo abd pain stool changesPE Gen alert and oriented NAD nontoxic appearingPulm breathing unlabored, speaking in full sentences Psych pleasant cooperative answers appropriately Semi-Annual Comments: Partic ipant is being examined during the COVID-19 Pandemic. Appropriate precautions were used given CDC recommendations and available resources. SUMMARY:Maylin is a 77 year old man who has been enrolled in the PACE program since 04/19/22 and is being seen for his biannual exam. Interpretation given by Norma Garcia MA.Baseline functional and neurologic function: Per 05/01/22 transfer and bed mobility independent, ambulates independent, cane and RW prnAbility to communicate/make decisions: No HCP paperwork in file.There have been no hospitalizations, SNF admission and/or ER visits in the last six months per Collect[facility].NO falls documented per SE incident reporting SERVICES/CONSULTANTS:[facility] [place] podiatryNO OPEN ORDERS OR OPEN DIAGNOSTICS NOTED.Ppt seen with at bedside. Interpretation was provided kindly by Norma Garcia. Ppt notes that he is having trouble having bowel movements regularly, noting they occur every 3 or 4 days. He notes he would not want to have additional medications if possible. Recommended trying warm prune juice. Understanding that this may elevate blood sugars, however looking at ppts Ethan readings, average noted to be around 150s with some lows in 60s in the morning, highest around 200s. Noting that ppt has not received his trulicity for a few weeks last month. Per history in [facility], appears ppt had an admission last week for a seizure thought to be due to HHS and also a prior hospital visit for hypoglycemia. We will get labs and make decisions regarding the trulicity. Ppt agrees. Ppt notes he is having trouble sleeping flat, noting requiring 2 pillows. He also notes he has some shortness of breath at times. Notes that does not stay in room when he sleeps, as he snores very severely. Also notes that ppt appears to have apneic events at night. Ppt notes hesitation to have a polysomnography outside of house because he doesn't want to leave his unattended to, fearing she may look for him and walk out. He is willing to do an at home sleep study. Ppt also notes he has some LE edema which he believes is due to eating too much salt . However he also notes that it resolves when he elevates it. He has no diagnosed heart failure in the chart, discussed TTE, however ppt would like to avoid diagnostics outside of the home if possible. EKG to be done today as well as BNP for now. Also noted to be on amlodipine for hypertension. Ppt notes he wears oxygen at night and as needed for ambulation. Per [facility] records, he had COVID pneumonia and required oxygen, diagnosis of pulmonary hypertension and lung fibrosis noted, but unclear. Ppt also noted to have seen an ENT recently, unable to find records. Will ask business office for records. He denies any issues with swallowing or his sinuses at this time. He notes he is not eating much, he is concerned about his hernia , however per imaging found on [facility] records no documentation of a hernia was found. Some changes in his esophagus were noted on a CTA chest in 2020 concerning for esophagitis. Ppt is currently on a PPI, denies any symptoms of reflux.Ppt notes he has pain on his knees for which he states voltaren works well. He also notes neuropathic pain in his feet, also noting that voltaren works well for that. He notes the gabapentin at night not only helps with the neuropathy at night, but is also letting him sleep. He notes pain in his neck and also in his back at times, especially when sitting for too long or right when getting up in the morning. He is willing to try a lidocaine patch up to 3 on his back overnight. Ppt states he has chest pain at times, sometimes dull, sometimes strong, notes it is over the left latissimus dorsi, he states rubbing the area makes the pain resolve. He believes his blood pressure elevates and causes this pain. He notes it can happen in any position and at any time of day. He notes it isnt correlated with exertion or with eating. At this time he will monitor and let us know if it recurs. He notes he urinates stably 3 times during the day, and not at night. He is taking HCTZ for blood pressure.Labs reviewed. Labs today yenqxks49/27/22 Na 140 K4.2 BUN20 Cr1.38 eGFR53 Ca9.511/ Na140 K4.1 BUN22 Cr1.46 eGFR50 Ca9.511/03/10 Na141 K4.2 BUN19 Cr1.37 eGFR53 AST19 ALT10 AP78 Ca9.3 Alb4.1 Tbili 0.4 HBV core Ab reactive, HBV surface Ab reactive, HCV ab non nevrfubj63/13/22 WBC 11.8 H/H13.7/41.2 Uds904 Na142 K4.5 BUN17 Cr1 eGFR78 AST36 ALT63 AP70 Tbili0.5 Alb4.5 Ca9.8 Urine Alb/Cr ratio 1268Allergies: NKDAHCP reviewed. Email sent to SW and PN to investigate if paperwork is availableAdvance Directives reviewed.MOLST done: 10/19/22 Full codeLast MoCa: 05/01/22GOC: Longevity Diabetes monitoring: Ppt using Ethan, average 180-200 with some in 50s-60s in the past month. [facility] - 17 JUN 2022HPIVisit to address HTN mgmt. vs recent decrease in kidney fx05/01/22 - GFR: 78His HCTZ was dropped from 50mg -> 25mg QDAnd Lisinopril increased from 20mg -> 40mg QDBPs remained in 140s/80s107/27/21 - GFR: - GFR: 50I discussed the case with Dr Martinez who was in agreement with the following:Cont HCTZ @ 25mg QD, decrease Lisinopril back to 20mg QD, add Norvasc 10mg QDLabs in 30 days He does not have a hx of CHFBMP ordered for 30d out--CURRENTLYPpt seen in clinic We discuss the above and he is agreeable to the planHe reports he is urinating There has been no all over swellingOtherwise he has no questions or concerns ROS(+)voidNo edemaNo N V F C No CP SOBPEGen male appearing age in NAD and nontoxic appearingLungs CTAB no wheeze rales or rhonchiHeart RRR (+)s1s2, no JVDABD soft NTExt no edema OV HPI_76___ year old _male____Seen in clinic todayLilly translates Lives @ apt with He feels wellHe is happy for the programHe actually mentions a once weekly injection before I discuss trmayraity [id number] 8.8On glipizide, metformin, JanuviaPpt comes to [facility] once weeklyPpt is agreeable with TrmayraityWe discuss that I would like him to check his sugars BIDHe cannot write or read He is agreeable to eFans systemHTN w/ CKDHctz and LisinoprilCr 1.00GFR 78 / CKD 2BP recheck on room 142/84KNEE OAbilateral hx Cant use cortisone inj due to rxn in pastHe would like to try a topical agent Knees aren't given outALLERGIES No changes vs nextgen ROSno N V F Cno CP SOBno abd pain(+)bilateral knee painPEGen male appearing age NAD very pleasant Heart RRR (+)[id number] soft NT with (+)BS in all quadrants, no hernia or mass ext no edema no erythemMSK bilateral knees with full ROM, no crepitus, no pain with ROM, no palpable or obv deformity PEE Pleasant 76-year -old gentleman seen today for post enrollment examination. His accompanied him however she can offer no significant ancillary history. We have no primary care records and no medical records beyond those available in the [facility] system where he had 2 hospitalizations. The patient himself is a somewhat challenged historian. Patient has some difficulty with his hearing by his report. During his hospitalization in November he had myringotomy tube on the right due to mastoiditis. He is uncertain if the tube is still in. By his recollection he has not had follow-up with ENT.He reports that he has slipped disks and had back injections in the past. He generally does not have pain at rest but does with ambulation. The pain seems to be in his legs. Patient mentions past trauma when he apparently had by his report clavicular fracture and had some form of reconstruction. He describes jaskaran-ballistic movements of the right upper extremity when someone touches him on the right. Patient reports that he sleeps on the right side, cannot sleep on the left side due to discomfort. Later he suggest that he sleeps somewhat upright. Generally has nocturia 2-3 times per night. There is some snoring. Daytime fatigability/somnolence unclear.Patient reports he has a concentrator in the home. He does not have portable oxygen. He uses it on an as-needed basis. He seemingly does not use it consistently at night. He is aware of the pleural plaque. He tells me he saw a mixer diamond powder in [place] in the past although does not recall who. He generally sleeps fairly upright.With regard to his diabetes, he takes oral medications. He does not check fingersticks. He is uncertain if he has a glucometer. He is unable to read or write, ability to read numbers and managed results unclear.Patient recalls being in the hospital earlier this year, not sure of the dates. Is aware that his sugar was dramatically elevated and that he had seizures. He suggest that he was cognitively normal before this but recognizes that he has some struggles thereafter.He has some lower extremity felt to be neuropathic. While he does not recall details appears he was on gabapentin 300 mg per the state database.Past surgical history includes at the very least:Cataract extractions, he does not recall by whom although later we learned [place] [facility] [place] for traumatic injury of right clavicle perhaps upper extremity.Allergies: None knownMedications:Home medication reconciliation was done by home care. There remains a great deal of uncertainty with regard to what he was actually taking. There is a listing of gabapentin 800 mg nocturnally however per state database this appears incorrectHe is seemingly on lisinopril 20 mg once dailyGlipizide ER 10 mg dailyHydrochlorothiazide 50 mg dailyMetformin 1 g twice dailyOmeprazole 20 mg once dailyHe apparently alluded to eyedrops, none knownFamily history not obtained at this timeSocial history:Never smoked neverNever drank appreciablyBorn in [place], came to constant until he rests roughly 55 years agoMarried for 5-6 decades.Adult son living in [place]. Several grandchildren living locally. Daughter who I believe lives locally .Patient worked in [employer] and then [employer]Functional history:Needs assistance with lower body bathing and dressingAbility to manage medications limited by illiteracyRarely uses walker or caneFall only in the context of his acute illness [facility] Instructions Date Instruction Additional Infor nahum -PPT with long jagge d/tonails-Nail care performed due to c/o nail catching on socks and causing pain Related to Long toenail -PPT seen for genera l check up related to not feeling well with no definite s/sx general exam with no negative finding-Will continue to monitor Related to Illness, unspecified sugars continue to 3 00s 400sstarted in glimipiride 1mg qd and jardiance 10mg qd Related to Type 2 diabetes mellitus with stage 3b chronic kidney disease, without long-term current use of insulin sugars continue to 3 00s 400sstarted in glimipiride 1mg qd and jardiance 10mg qd Related to Chronic kidney disease, stage 3b To restart trulicity d/t worsen alb/cr ratio, kidney function, and worsening A1c Related to Type 2 diabetes mellitus with stage 3b chronic kidney disease, without long-term current use of insulin To restart trulicity d/t worsen alb/cr ratio, kidney function, and worsening A1c Related to Chronic kidney disease, stage 3b Given worsening kidn ey function,lisinopril halved from 20mg to 10mg, metformin decreased to 500mg BID, would recommend weekly BPs to then further adjust HCTZ Related to Stage 3a chronic kidney disease (CKD) BP today 140/60s Not ed to be orthostatic, recommended increasing fluid intakelabs today Related to 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 Ppt had a CGM but does not want it anymore. 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 He did this numerous times with previous provider and with PN. Ppt notes he has had this reaction for a long time. These automatic reaction is associated with tachycardia. 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 MRI of brain in November was somewhat motion degraded. There is mild small vessel disease with a few small foci of microhemorrhage.He at this time appears to be able to make general medical decisions, each decision made today seems to have been made with capacity. -Check basic labs- Continue to monitor Related to Cognitive impairment CT angiogram of ches t done in March 2021 showed mild architectural distortion in the right lower lobe and mild bronchiectasis. There are pleural calcifications in the posterior right lower lobe. Impression is read as fibrotic changes in the right lower lobe. This may well be due to occupational exposure although this was done in the setting of COVID. At this time ppt doesnt not want to pursue follow up CT scanning, as he does not want to leave his alone. Not using oxygen per his account Related to Lung fibrosis CTa in 2020 showed t he pleural plaques as well as 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 Ppt previously saw a mixer diamond powder per [facility], still do not have records despite requesting. Ppt does not want follow up CTA at this time Related to Pleural calcification Appears to have stop ped having daytime sleepiness, unclear about apneic eventssleep study is ordered Related to Primary snoring 01/15/23: A1c 5.5, A1 c goal for ppts age is 7-8%PCP discontinued glipizide at last visitNoting that ppt does not come to the site consistently as he did prior, therefore shared decision making with this provider, PCP and ppt to discontinue trulicity and continue metformin alone- Repeat A1c moved to week of 03/20/23 with CMP- Ethan to be sent to [facility] for changing q14 days Related to Type 2 diabetes mellitus with stage 3a chronic kidney disease, without long-term current use of insulin 01/15/23:BUN16 Cr1.58 eGFR45 A1c 5.5, A1c goal for ppts age is 7-8%PCP discontinued glipizide at last visitNoting that ppt does not come to the site consistently as he did prior, therefore shared decision making with this provider, PCP and ppt to discontinue trulicity and continue metformin alone- Repeat A1c moved to week of 03/20/23 with CMP- Ethan to be sent to [facility] for changing q14 days Related to Chronic kidney disease, stage 3a GFR 49sulfonylurea d c'd labs todayeval ongoing Related to Chronic kidney disease, stage 3a trulicity Related to Long- term (current) use of injectable non-insulin antidiabetic drugs Using glipizide and trulicityOn 12/25/22 a1c was 5.3%GFR was down to 49ppt agreeable with dc of glipizidewill cont trulicityCMP and A1c todaycont eval Related to Type 2 diabetes mellitus with stage 3a chronic kidney disease, 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 Ppt is not orthostatic, BP elevates when standing. Ppt noted to have hemiballismus when approached closely and that also increases his blood pressure. At this time, ppt would like to avoid additional medications, therefore will hold off and defer to PCP Related to Hypertensive heart disease with stage 3a chronic kidney disease, unspecified whether heart failure present Please see DM under DM with CKD. The patient does report mild neuropathic dysesthesias. He had been on high dose gabapentin at night with improvement. Also notes he finds voltaren to be useful -Resume nocturnal gabapentin-Podiatry care-Close attention to feet Related to DM type 2 with diabetic peripheral neuropathy Comes to us with a d iagnosis of hyperlipidemia. Given diabetes this is unsurprising.-Obtain lipid panel today-Consider statin Related to Hyperlipidemia, unspecified hyperlipidemia type 05/01/22 Urine Alb/C r ratio 1268 A1c 8.8Per [facility] records ppt had a generalized seizure last year and was intubated, thought to be 2/2 HHS. Additionally had another admission last year with hypoglycemiaAt this time his ethan readings are noted to be between 100-200 with average 130 with outliers in 60s in the mornings. he is currently on glipizide, metformin, and trulicity. He was previously on Januvia.Ppt noted to have not used his trulicity for the past month, received a dose this week. We will check his A1c. Given his age, his goal is around 7.5%. 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 MRI of brain in November was somewhat motion degraded. There is mild small vessel disease with a few small foci of microhemorrhage.He at this time appears to be able to make general medical decisions, each decision made today seems to have been made with capacity. -Check basic labs- Continue to monitor Related to Cognitive impairment PPt continues to hav e bilateral knee pain, notes voltaren helps. Ppt ran out of voltaren and provided muscle rub toda Related to Other chronic pain PPt continues to hav e bilateral knee pain, notes voltaren helps. Ppt ran out of voltaren and provided muscle rub toda Related to Pain in left knee PPt continues to hav e bilateral knee pain, notes voltaren helps. Ppt ran out of voltaren and provided muscle rub toda Related to Chronic pain of both knees Ppt states he has ch est pain at times, sometimes dull, sometimes strong, notes it is over the left latissimus dorsi, he states rubbing the area makes the pain resolve. He believes his blood pressure elevates and causes this pain. He notes it can happen in any position and at any time of day. He notes it isnt correlated with exertion or with eating. At this time he will monitor and let us know if it recurs. EKG today Related to Atypical chest pain CTa in 2020 showed t he pleural plaques as well as 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 Ppt previously saw a mixer diamond powder per [facility]pt [facility], still do not have records. Will alert the office to try to get these records Related to Pleural calcification CT and a gram of tomas st done in March 2021 showed mild architectural distortion in the right lower lobe and mild bronchiectasis. There are pleural calcifications in the posterior right lower lobe. Impression is read as fibrotic changes in the right lower lobe. This may well be due to occupational exposure although this was done in the setting of COVID. Ppt still on oxygen at night and prn during the day. At this time ppt doesnt not want to pursue follow up CT scanning, as he does not want to leave his alone Related to Lung fibrosis CT 2020 Mildly patul ous esophagus with findings suggesting esophagitis.Ppt denies symptoms of reflux, but he is on omeprazole Would continue for now, would refer to GI for EGD in future if ppt is able to find safe location for (? 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 He did this numerous times with previous provider and with PN. Ppt notes he has had this reaction for a long time. These automatic reaction is associated with tachycardia. 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 Noting that he has not tried voltaren on that area, he will also try a lidocaine patch which was orderedppt also on gabapentin at night to help with paresthesias and pain, he feels it is useful Related to Posttraumatic pain PPt notes having charles rtness of breath, unable to lay flat without using 2 pillows, some LE edema. Ppt at this times does not want to go for a TTE as he doesnt want to leave his alone, per [facility] records, no TTE noted in the past. - EKG ordered- BNP ordered Related to Shortness of breath Ppt notes he has a b owel movement every 3 or 4 days, he does not want to take additional medication at this timeHe is willing to try warm prune juice when not achieving a bowel movement in 3 days. He understands this may spike his blood sugar, but looking at his readings, he appears to have readings averaging at 140s with some lows in 60s noted Related to Slow transit constipation Ppt noted to have sn oring with some concern for apneic events, ppt also notes he is tired during the day, also notes he feels very short of breath at night. 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 3a chronic kidney disease BP recheck consisten t with prev visitsGFR recently decreased from 70s to 50s (see HPI)ppt agreeable with antiHTN med adjustmentnew reg: HCTZ 25mg QD, norvasc 10mg QD, zestril 20mg QDRN will collect 40mg tabs tomorrownew meds sent to pharmacywill check BMP in 30d to trend BUN/Cravoid nephrotoxinsno signs of edema/hypervolemiastable nontoxic appearing NADeval ongoing Related to Chronic kidney disease, stage 3a ppt endorses low lev el chronic pain that can be worse some dayshe has had cortisone inj in the past but did not toleratehe would like to try a topical agent voltaren prescribedexam overall benignif worsening we can xray and/or refer to ortho Related to Chronic pain of both knees ppt endorses low lev el chronic pain that can be worse some dayshe has had cortisone inj in the past but did not toleratehe would like to try a topical agent voltaren prescribedexam overall benignif worsening we can xray and/or refer to ortho Related to Pain in left knee ppt endorses low lev el chronic pain that can be worse some dayshe has had cortisone inj in the past but did not toleratehe would like to try a topical agent voltaren prescribedexam overall benignif worsening we can xray and/or refer to ortho Related to Other chronic pain A1c 8.8%currently ta [place] po meds onlyOn glipizide, metformin, Januviahe is open to trying trulicityhe comes to the center once weekly which will work for dosinghe reports checking and logging POCs would be difficulthe is open to ethan monitororders placedcheck a1c and labs at 6mo check (3-4 months from now)eval ongoing Related to Type 2 diabetes mellitus with stage 2 chronic kidney disease, without long-term current use of insulin Nov-08-2022 BP recheck on exam 1 42/84ppt reports he gets very nervous seeing doctorsCr 1.00GFR 78 / CKD 2cont evalwill do BP recheck in 2 weeks in centerconsider CCB if still elevated Related to Hypertensive heart and kidney disease without heart failure and with stage 2 chronic kidney disease BP recheck on exam 1 42/84ppt reports he gets very nervous seeing doctorsCr 1.00GFR 78 / CKD 2cont evalwill do BP recheck in 2 weeks in centerconsider CCB if still elevated Related to Chronic kidney disease, stage 2 (mild) Comes to us with a d iagnosis of hyperlipidemia. Given diabetes this is unsurprising.-Obtain lipid panel today-Consider statin Related to Hyperlipidemia, unspecified hyperlipidemia type As always, it is roxi ewhat difficult to know if this per se represents coronary artery disease. He has a myriad risk factors.-We will check lipid panel-Would certainly consider ASA however, the absence of previous event it is somewhat difficult to know if risk/benefit favors use given the age and magnitude of benefit overall-Had minimal cerebral microhemorrhage in November, making ASA potentially more risky, although likely from his staus epil Related to Coronary artery calcification seen on CAT scan We have no primary c are records and therefore no idea precisely what preventive health care he has received.-He believes he had colonoscopy in the past, no details known-There is no immunization record in [facility]. We have no records from primary care-Record the patient states indicate SARS Moderna COVID immunization in June 2021. WOuld recommend completion of primary series and then booster-As unclear when we will receive records, would give PPV 20 and Tdap-Shingrix less critical Related to Encounter for general health examination Please see DM under DM with CKD. The patient does report mild neuropathic dysesthesias. He had been on high dose gabapentin at one point although not recently-Resume nocturnal gabapentin-Podiatry care-Close attention to feet Related to DM type 2 with diabetic peripheral neuropathy CT and a gram of tomas st done in March 2021 showed mild architectural distortion in the right lower lobe and mild bronchiectasis. There are pleural calcifications in the posterior right lower lobe. Impression is read as fibrotic changes in the right lower lobe. This may well be due to occupational exposure although this was done in the setting of COVID-Await medical records-Consider pulmonary follow-up Related to Lung fibrosis CT of head and neck in 2020 essentially showed right lower lobe pleural calcification. 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 Unclear if this is known asbestosis. He alludes to having a mixer diamond powder in [place]. We do not currently have any information about this-Await medical records -Consider referral to [facility] pulmonary given his overall goalslikely needs dedicated CT chest Related to Pleural calcification Had status epileptic us in 2021 with [facility] admission. He is not on antiepileptics. MRI of the time did not show very significant structural disease although he had sinusitis and seemingly right mastoiditis.-Observation Related to H/O tonic-clonic seizures A rather challenging diagnosis to make in the absence of ancillary history. Admission note to the medical ICU and may suggest he has dementia. The patient feels that he has had a cognitive decline after his critical illness in November. His is far more cognitively impaired than he is making her a poor ancillary historian. Furthermore, he has no formal education and is illiterate making testing unreliable. His recollection of details actually fair. It is reported that his moca was 24/30 although I am somewhat curious about that as it is education dependent, to a degree.MRI of brain in November was somewhat motion degraded. There is mild small vessel disease with a few small foci of microhemorrhage-Supportive care-Would work on the assumption that he has some degree of cognitive impairment and there is poor support system-I do not think healthcare proxy needs to be invoked at this juncture-Check basic labs Related to Cognitive impairment Most recent CBC that I have access to is from November 2021. At the time hemoglobin was 9.6, MCV 103.6 RDW is elevated. An LMA was 4.1. B12 interestingly was 1069. Bilirubin was variable. Folic acid was 11.4. Ferritin was elevated in the face of acute illness. Iron level 63.-Would repeat CBC and see where we stand, any additional workup depending upon those results, ferritin and the like Related to H/O macrocytic anemia Unclear if there is reflux per se. He is on omeprazole. 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 historically poorly controlled. How much of this is due to medication mismanagement versus simply inadequate control from current agent is unclear. He is on a sulfonylurea, namely glipizide 10 mg ER daily as well as metformin 5 mg twice daily. He has been hospitalized once with DKA and once with HHS. The DKA is curious assuming strict type 2 diabetes.-Check hemoglobin Z0e-Ifucz urine microalbumin-He is on ELIA inhibitor, would continue the lisinopril-Depending on results of the A1c will adjust medication regimen-Given cognition and difficulties with medication aiming to avoid insulin-Seeing luis armando (Rita Chavarria)next week per service [id number] here Related to Type 2 diabetes mellitus with stage 3a chronic kidney disease, without long-term current use of insulin Patient with chronic kidney disease as below. Patient had CT chest in March 2021 showing cardiomegaly and LVH indicative of hypertensive heart disease. His blood pressure is poorly controlled today. Given comorbidities goal systolic is approximately 120. Goal diastolic roughly 70. He is on hydrochlorothiazide 50 mg which is not a typical dose as doses exceeding 25 generally do not improve hypertension control. 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 This is due to hypertension, diabetes. Unclear if obstructive uropathy plays any role.-Control hypertension-Controlled diabetes-Follow labs-Check urine microalbumin Related to Stage 3a chronic kidney disease (CKD) Assessments Type Assessment Date No Information Goals Health Concern Goal Type Priority Status Date Tyree is at risk for falls due to DMII, chronic pain Tyree will not experience any falls or fall related injuries for 6 months. Patient Goal New [place]ree is at risk for functional decline related to chronic pain and arthritis . Tyree will remain at current level of functioning (independent with ambulation without AD, independent with ADLs )for 6 months. Patient Goal Complete
--- OUTSIDE RECORDS SUMMARY | 2024-01-07 09:17 | XMS_ITS | Continuity of Care Document ---
Author Organization [facility] Address [address] [address] Phone Care Team Providers Care Hand Etcher Helper Name Role Phone Hollis BECKER, Martha Unavailable [...] use as directed - Active DELIVER TO [facility] [address] Trulicity 1.5 mg/0.5 [...] Active DELIVER TO HOME FreeStyle Ethan 2 [place] use as directed - Active PLEASE DELIVER TO HOME Prevnar 20 (PF) 0.5 mL intramuscular syringe inject 0.5 milliliter by intramuscular route once 0.50 milliliter - Active Please deliver to site in [facility] Advance Directives Directive Yes / No Effective Date File Name No Information Encounters Encounter Description Practice Location Reason(s) For Visit Diagnoses Date Provider [facility], [address] [place] [address], [place], [place], [id number], [place] tel:[phone] [facility] No Information 4 [facility]. [address], [place], [place], [id number], [place]. tel:[phone] [facility], [address], [place], [place], [id number], [place] tel:[phone] [facility] No Information 4 [facility]. [address] [place], [place], [id number], [place]. tel:[phone] [facility], [address], [place], [place], [id number], [place] tel:[phone] [facility] Acute Visit (chief complaint) Illness, unspecifiedLong toenail 4 [facility]. [address] [place], [place], [id number], [place]. tel:[phone] [facility], [address], [place], [place], [id number], [place] tel:[phone] [facility] Encounter for [facility] adult medical examination without abnormal findings 4 [facility]. [address] [place], [place], [id number], [place]. tel:[phone] [facility], [address] [facility] [address], [place], [place], [id number], [place] tel:[phone] [facility] No Information 3 Bhagavatula Ujjwala. [address] [place], [place], [id number], [place]. tel:[phone] [facility], [address], [place], [place], [id number], [place] tel:[phone] [facility] No Information 3 Bhagavatula Ujjwala. [address] [place], [place], [id number], [place]. tel:[phone] [facility], [address], [place], [place], [id number], [place] tel:[phone] [facility] No Information 3 Bhagavatula Ujjwala. [address] [place], [place], [id number], [place]. tel:[phone] [facility], [address], [place], [place], [id number], [place] tel:[phone] [facility] Encounter for rehabilitation evaluation 3 Ellie Nesbitt. [address] [place], [id number], [place]. tel:[phone] [facility], [address], [place], [place], [id number], [place] tel:[phone] [facility] Type 2 diabetes mellitus with stage 3b chronic kidney disease, without long-term current use of insulinChronic kidney disease, stage 3b 3 Bhagavatula Ujjwala. [address] [place], [id number], [place]. tel:[phone] [facility], [address], [place], [place], [id number], [place] tel:[phone] [facility] No Information 3 Bhagavatula Ujjwala. [address] [place], [address], [place]. tel:[phone] [facility], [address], [place], [place], [id number], [place] tel:[phone] [facility] No Information 3 Bhagavatula Ujjwala. [address] [place], [id number], [place]. tel:[phone] [facility], [address], [place], [place], [id number], [place] tel:[phone] [facility] Stage 3a chronic kid gifty disease (CKD)Type 2 diabetes mellitus with stage 3b chronic kidney disease, without long-term current use of insulinChronic kidney disease, stage 3b 3 Bhagavatula Ujjwala. [address] [facility] [address], [place], [place], [id number], [place]. tel:[phone] [facility], [address] [facility] [facility], [place], [place], [id number], [place] tel:[phone] [facility] Encounter for rehabilitation evaluation Sep-2 3 Avni Correa. [address] [place], [place], [id number], [place]. tel:[phone] [facility], [address] [facility] [facility], [place], [place], [id number], [place] tel:[phone] [facility] Encounter for rehabilitation evaluation Sep-2 3 Bryce Wright. [address] [place], [place], [id number], [place]. tel:[phone] [facility], [address] [facility], [place], [place], [address], [place] tel:[phone] [facility] No Information Sep- 3 Bhagavatula Ujjwala. [address] [facility] [place], [id number], [place]. tel:[phone] [facility], [address] [facility] [address] [facility], [place], [place], [id number], [place] tel:[phone] [facility] Semi-Annua l (chief complaint) Encounter for nutritional assessment Sep- 3 Genia Garcia. [address] [facility], [place], [address]. tel:[phone] [facility], [address] [facility] [address] [facility], [place], [place], [id number], [place] tel:[phone] [facility] Semi-Annua l (chief complaint) Primary snoringLung fibrosisPleural [...] kidney disease 3 Maddisonagaevelintula Ujjwala. [address] [place], [place], [id number], [place]. tel:[phone] [facility], [address], [place], [place], [address], [place] tel:[phone] [facility] No Information 3 Juankatie Robertsonn. [address] [place], [place], [id number], [place]. 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 [address] [facility] [place], [address], [place]. tel:[phone] [facility], [address], [place], [place], [id number], [place] tel:[phone] [facility] Shortness of breath 3 Kj Childresswala. [address] [facility] [place], [id number], [place]. tel:[phone] [facility], [address], [place], [place], [id number], [place] tel:[phone] [facility] Fall (chief complaint) Leg pain, rightType 2 diabetes mellitus with stage 3a chronic kidney disease, without long-term current use of insulinChronic kidney disease, stage 3a 3 Maddisonagaevelintula Ulambertojwala. [address] [facility] [place], [address], [place]. tel:[phone] [facility], [address], [place], [place], [address], [place] tel:[phone] [facility] OV (chief complaint) Type 2 diabetes mellitus with stage 3a chronic kidney disease, unspecified whether intermodal owner operator truck driver insulin useChronic kidney disease, stage 3aLong-term (current) use of injectable non-insulin antidiabetic drugs 3 Konstantin Henderson. [address], [place], [place], [address], [place]. tel:[phone] [facility], [address], [place], [place], [id number], [place] tel:[phone] [facility] No Information 3 Konstantin Henderson. [address], [place], [place], [id number], [place]. tel:[phone] [facility], [address] [facility] [address], [place], [place], [id number], [place] tel:[phone] [facility] No Information 3 Konstantin Henderson. [address], [place], [place], [id number], [place]. tel:[phone] [facility], [address], [place], [place], [address], [place] tel:[phone] [facility] Semi-Annua l (chief complaint) Primary snoringSlow transit [...] drugs 3 Kj Womack. [address], [place], [place], [id number], [place]. tel:[phone] [facility], [address], [place], [place], [id number], [place] tel:[phone] [facility] Encounter for genera l adult medical examination without abnormal findings 3 Konstantin Henderson. [address], [place], [place], [id number], [place]. tel:[phone] [facility], [address] [facility] [address], [place], [place], [id number], [place] tel:[phone] [facility] OV (chief complaint) Hypertensive heart and kidney disease without heart failure and with stage 3a chronic kidney diseaseChronic kidney disease, stage 3a 2 Konstantin Henderson. [address] [facility] [place], [id number], [place]. tel:[phone] [facility], [address] [facility] [address] [facility], [place], [place], [id number], [place] tel:[phone] [facility] OV (chief complaint) Hypertensive heart and kidney disease without heart failure and with stage 2 chronic kidney diseaseChronic kidney disease, stage 2 (mild)Type 2 diabetes mellitus with stage 2 chronic kidney disease, without long-term current use of insulinChronic pain of both kneesPain in left kneeOther chronic pain 2 Konstantin Henderson. [address] [place], [place], [id number], [place]. tel:[phone] [facility], [address] [facility] [address] [facility], [place], [place], [address], [place] tel:[phone] [facility] Encounter for genera l adult medical examination without abnormal findings 2 Janny Ellis. [address] [place], [place], [id number], [place]. tel:[phone] [facility], [address] [facility] [address] [facility], [place], [place], [address], [place] tel:[phone] [facility] Encounter for nutritional assessmentDiabetic nutritional counseling completed 2 Isabel Lyons. [address] [place], [place], [address], [place]. tel:[phone] [facility], [address] [facility], [place], [place], [address], [place] tel:[phone] [facility] Encounter for rehabilitation evaluation 2 Pipo Hightower. [address] [place], [address]. tel:[phone] [facility], [address] [address], [place], [place], [address], [place] tel:[phone] [facility] Encounter for rehabilitation evaluationOther chronic pain 2 Reece Patel. [address] [place], [place], [id number], [place]. tel:[phone] [facility], [address] [facility], [place], [place], [id number], [place] tel:[phone] [facility] PEE (chief complaint) Coronary artery calcification seen [...] general health examination 2 Juan Child. [address] [place], [place], [id number], [place]. tel:[phone] [facility], [address] [address], [place], [place], [address], [place] tel:[phone] [facility] Encounter for rehabilitation evaluation 2 Reecetheodore Patel. [address] [place], [place], [id number], [place]. tel:[phone] Family History Family Member Type Diagnosis Age [...] Record Payers Payer name Insurance type Covered green party ID Authoriza tion(s) [facility] 16 [id number] [facility] 16 [id number] [facility] 16 [id number] [facility] 16 [id number] [facility] 16 [id number] Social History Type Description Quantity Date Captured Comments Sex Male Smoking Status No Information Chief Complaint And Reason For Visit No Information Plan Of Treatment Date Type Action Status Referral Ordered: Dentistry (related to Encounter for general health examination) ordered Referral Ordered: Referrals: Dentistry ordered Referral Ordered: Referrals: [facility] [place] Location: [facility] ordered Referral Ordered: Referrals: Podiatry. Evaluate and treat Appointment date/timeframe: 05/04/2023 ordered Referral Ordered: Referrals: [facility]- Appointment date/timeframe: 10/27/2022 ordered Referral Ordered: Referrals: Otolaryngology. Follow-up and treat Appointment date/timeframe: 08/25/2022 ordered Referral Referred To: [facility] Ordered: Referrals: Dentistry. [facility]. Evaluate and treat Appointment date/timeframe: 10/15/2022 ordered Referral Referred To: [facility] Ordered: Referrals: Deputy Director Of Finance. [facility]. Evaluate and treat Appointment date/timeframe: 10/15/2022 ordered Referral Referred To: [facility] Ordered: Referrals: Podiatry. [facility]. Evaluate and treat ordered Future Order: Radiology Order Jaqui uriostegui study, unattended ([id number]), Ordered on: Ordered History Of Present Illness Encounter Date Complaint History Of Prese nt Illness Acute Visit PPT is a 77 yr o ld male seen in the clinic with Oma Mosquera MA as community association manager as PPT is Upper Sorbian speaking, seen for respiratory s/sx without cough, States his is coughing and he feels like he is coming down with something. Vitals stable not fever no cough lung sounds clear. He also state that he has not seen the customer order clerk and that his toe nails are catching [...] Collective.NO falls documented per [facility] incident reporting SERVICES/CONSULTANTS:[facility] podiatryOPEN [facility] - maylin still wantsNotes [...] LFTs normal A1c 5.56/8/23 WBC9.4 H/H 14.3/42 Mtp363 BNP 66 Folate 18.1 A1c 5.3 VVE304/25/23 Peipipkn18 %sat42 COPR382 Na135 K4.3 Mg2.4 Phos3.7 BUN22 Cr1.46 eGFR49 LFTs normal Alb/Cr ratio 985 Ca 8.9 Ionized Ca 5.2 TSH2.34 X71RF417 JBT751 HDL46 OS18068/ Na 140 K4.2 BUN20 Cr1.38 eGFR53 Ca9.511/ Na140 K4.1 BUN22 Cr1.46 eGFR50 Ca9.511/03/10 Na141 K4.2 BUN19 Cr1.37 eGFR53 AST19 ALT10 AP78 Ca9.3 Alb4.1 Tbili 0.4 HBV core Ab reactive, HBV surface Ab reactive, HCV ab non gmaimfpj79/13/22 WBC 11.8 H/H13.7/41.2 Qsh423 Na142 K4.5 BUN17 Cr1 eGFR78 AST36 ALT63 [...] joined SE using januvia and glipizide last qhcfiyP8y was 8.8%Dc'd januvia and added Trulicity On [...] Collective.NO falls documented per [facility] incident reporting SERVICES/CONSULTANTS:[facility] podiatryNO OPEN ORDERS OR OPEN DIAGNOSTICS NOTED.Ppt [...] few weeks last month. Per history in [facility], appears ppt had an admission last week [...] night and as needed for ambulation. Per [facility] records, he had COVID pneumonia and required [...] hernia , however per imaging found on [facility] records no documentation of a hernia was [...] HCTZ for blood pressure.Labs reviewed. Labs today xqsqjvy16/27/22 Na 140 K4.2 BUN20 Cr1.38 eGFR53 Ca9.511/ Na140 K4.1 BUN22 Cr1.46 eGFR50 Ca9.511/03/10 Na141 K4.2 BUN19 Cr1.37 eGFR53 AST19 ALT10 AP78 Ca9.3 Alb4.1 Tbili 0.4 HBV core Ab reactive, HBV surface Ab reactive, HCV ab non kbrodorn93/13/22 WBC 11.8 H/H13.7/41.2 Yos117 Na142 K4.5 BUN17 Cr1 eGFR78 AST36 ALT63 AP70 Tbili0.5 Alb4.5 Ca9.8 Urine Alb/Cr ratio 1268Allergies: NKDAHCP reviewed. Email sent to SW and PN to investigate if paperwork is availableAdvance Directives reviewed.MOLST done: 10/19/22 Full codeLast MoCa: 05/01/22GOC: Longevity Diabetes monitoring: Ppt using Ethan, average 180-200 with some in 50s-60s in the past month. [facility] - 17 JUN 2022HPIVisit to address [...] once weekly injection before I discuss trmayraity P9ICZ5k 8.8On glipizide, metformin, JanuviaPpt comes to [facility] once weeklyPpt is agreeable with TrmayraityWe discuss that I would like him to check his sugars BIDHe cannot write or read He is agreeable to [facility] systemHT[facility] w/ CKDHctz and LisinoprilCr 1.00GFR 78 / CKD 2BP recheck on room 142/84KNEE OAbilateral hx Cant use cortisone inj due to rxn in pastHe would like to try a topical agent Knees aren't given outALLERGIES No changes vs nextgen ROSno N V F Cno CP SOBno abd pain(+)bilateral knee painPEGen male appearing age NAD very pleasant Heart RRR (+)e3g0gil soft NT with (+)BS in all quadrants, [...] medical records beyond those available in the [facility] system where he had 2 hospitalizations. The [...] plaque. He tells me he saw a corporate lawyer in [place] in the past although does not recall [...] we learned [place] [facility] [facility] traumatic injury of right [...] timeSocial history:Never smoked neverNever drank appreciablyBorn in [place], came to [place] until he rests roughly 55 years agoMarried for 5-6 decades.Adult son living in [place]. Several grandchildren living locally. Daughter who I believe lives locally .Patient worked in [employer] and then [employer] AssociatesFunctional history:Needs assistance with lower body bathing and dressingAbility to manage medications limited by illiteracyRarely uses walker or caneFall only in the context of his acute illness leading to [facility] Instructions Date Instruction [...] without long-term current use of insulin 12/11/22 UZN310 TG194 HDL46 CH180- lipid panel today Related [...] disease (CKD) 12/25/22 WBC9.4 H/H 14 .3/42 Lyo994 Folate 18.1 12/11/22 Uwuurmwc67 %sat42 ABVO783 repeat labs ordered Related to H/O macrocytic [...] 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 Ppt previously saw a corporate lawyer per ppt at [place], still do not have records despite requesting. [...] with CMP- Ethan to be sent to the [facility] for changing q14 days Related to Type [...] with CMP- Ethan to be sent to the [facility] for changing q14 days Related to Chronic [...] Urine Alb/C r ratio 1268 A1c 8.8Per [facility] records ppt had a generalized seizure last [...] metformin and trulicity per conversation with endocrine [employer] at [facility]- Labs today Related to Type 2 diabetes mellitus with stage 3a chronic kidney disease, without long-term current use of insulin 07/15/22 BUN20 Cr1.3 8 zUXJ1907/22/22 BUN22 Cr1.46 eGFR50 05/27/22 BUN19 Cr1.37 eGFR53 05/01/22 BUN17 Cr1 eGFR78 Labs today, as the previous 3 test results have been stable Related to Stage 3a chronic kidney disease (CKD) 05/01/22 WBC 11.8 H/ H13.7/41.2 Cty277 Labs today Related to H/O macrocytic anemia [...] Related to Chronic pain of both knees PPt continues to hav e bilateral knee pain, notes voltaren helps. Ppt ran out of voltaren and provided muscle rub toda Related to Pain in left knee Ppt states he has ch est pain [...] 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 Ppt previously saw a corporate lawyer per ppt at [place], still do not have records. Will alert [...] doesnt want to leave his alone, per [facility] records, no TTE noted in the past. [...] details known-There is no immunization record in [facility]. We have no records from primary care-Record [...] known asbestosis. He alludes to having a corporate lawyer in [place]. We do not currently have any information about this-Await medical records -Consider referral to [facility] pulmonary given his overall goalslikely needs dedicated CT chest Related to Pleural calcification Had status epileptic us in 2021 with [facility] admission. He is not on antiepileptics. 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
--- OUTSIDE RECORDS SUMMARY | 2024-01-07 09:17 | XMS_ITS | Continuity of Care Document ---
Author Organization [facility] Address [address] [address] Phone Care Team Providers Care Turbo Generator Oiler Name Role Phone Hollis BECKER, Martha Unavailable [...] use as directed - Active DELIVER TO [facility] [address] Trulicity 1.5 [...] Active DELIVER TO HOME FreeStyle Ethan 2 Morgan use as directed - Active PLEASE DELIVER TO HOME Prevnar 20 (PF) 0.5 mL intramuscular syringe inject 0.5 milliliter by intramuscular route once 0.50 milliliter - Active Please deliver to site in [place] Advance Directives Directive Yes / No Effective Date File Name No Information Encounters Encounter Description Practice Location Reason(s) For Visit Diagnoses Date Provider [facility], [address] [place] [address], [place], [place], [id number], [place] tel:[phone] [place] No Information 4 [facility]. [address], [place], [place], [id number], [place]. tel:[phone] [facility], [address], [place], [place], [id number], [place] tel:[phone] [place] No Information 4 [facility]. [address] [place], [place], [id number], [place]. tel:[phone] [facility], [address], [place], [place], [id number], [place] tel:[phone] [place] Acute Visit (chief complaint) Illness, unspecifiedLong toenail 4 [facility]. [address] [place], [place], [id number], [place]. tel:[phone] [facility], [address], [place], [place], [id number], [place] tel:[phone] [place] Encounter for [facility] adult medical examination without abnormal findings 4 [facility]. [address] [place], [place], [id number], [place]. tel:[phone] [facility], [address], [place], [place], [id number], [place] tel:[phone] [place] No Information 3 Bhagavatula Ujjwala. [address] [place], [place], [id number], [place]. tel:[phone] [facility], [address], [place], [place], [id number], [place] tel:[phone] [place] No Information 3 Bhagavatula Ujjwala. [address] [place], [place], [id number], [place]. tel:[phone] [facility], [address], [place], [place], [id number], [place] tel:[phone] [place] No Information 3 Bhagavatula Ujjwala. [address] [place], [place], [id number], [place]. tel:[phone] [facility], [address], [place], [place], [id number], [place] tel:[phone] [place] Encounter for rehabilitation evaluation 3 Ellie Nesbitt. [address] [place], [id number], [place]. tel:[phone] [facility], [address], [place], [place], [id number], [place] tel:[phone] [place] Type 2 diabetes mellitus with stage 3b chronic kidney disease, without long-term current use of insulinChronic kidney disease, stage 3b 3 Bhagavatula Ujjwala. [address] [place], [id number], [place]. tel:[phone] [facility], [address], [place], [place], [id number], [place] tel:[phone] [place] No Information 3 Bhagavatula Ujjwala. [address] [place], [id number], [place]. tel:[phone] [facility], [address], [place], [place], [id number], [place] tel:[phone] [place] No Information 3 Bhagavatula Ujjwala. [address] [place], [id number], [place]. tel:[phone] [facility], [address], [place], [place], [id number], [place] tel:[phone] [place] Stage 3a chronic kid gifty disease (CKD)Type 2 diabetes mellitus with stage 3b chronic kidney disease, without long-term current use of insulinChronic kidney disease, stage 3b 3 Bhagavatula Ujjwala. [address] [facility] [address], [place], [place], [id number], [place]. tel:[phone] [facility], [address] [facility] [address] [facility], [place], [place], [id number], [place] tel:[phone] [place] Encounter for rehabilitation evaluation Sep-2 3 Avni Correa. [address] [place], [place], [id number], [place]. tel:[phone] [facility], [address] [facility] [address] [address] [facility], [place], [place], [id number], [place] tel:[phone] [place] Encounter for rehabilitation evaluation Sep-2 3 Bryce Wright. [address] [place], [place], [id number], [place]. tel:[phone] [facility], [address] [facility], [place], [place], [id number], [place] tel:[phone] [place] No Information Sep- 3 Bhagavatula Ujjwala. [address] [facility] [place], [id number], [place]. tel:[phone] [facility], [facility], [place], [place], [id number], [place] tel:[phone] [place] Semi-Annua l (chief complaint) Encounter for nutritional assessment Sep- 3 Genia Garcia. 101 [facility], [place], [address]. tel:[phone] [facility], [facility], [place], [place], [id number], [place] tel:[phone] [place] Semi-Annua l (chief complaint) Primary snoringLung fibrosisPleural [...] kidney disease 3 Maddisonagaevelintula Ujjwala. [address] [place], [id number], [place]. tel:[phone] [facility], [address], [place], [place], [id number], [place] tel:[phone] [place] No Information 3 Juankatie Robertsonn. [address] [place], [place], [id number], [place]. 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 [address] [facility] [place], [id number], [place]. tel:[phone] [facility], [address], [place], [place], [id number], [place] tel:[phone] [place] Shortness of breath 3 Kj Childresswala. [address] [facility] [place], [id number], [place]. tel:[phone] [facility], [address], [place], [place], [id number], [place] tel:[phone] [place] Fall (chief complaint) Leg pain, rightType 2 diabetes mellitus with stage 3a chronic kidney disease, without long-term current use of insulinChronic kidney disease, stage 3a 3 Maddisonagaevelintula Ulambertojwala. 101 [facility] [place], [id number], [place]. tel:[phone] [facility], [address], [place], [place], [id number], [place] tel:[phone] [place] OV (chief complaint) Type 2 diabetes mellitus with stage 3a chronic kidney disease, unspecified whether terminal clerk insulin useChronic kidney disease, stage 3aLong-term (current) use of injectable non-insulin antidiabetic drugs 3 Konstantin Henderson. [address], [place], [place], [id number], [place]. tel:[phone] [facility], [address], [place], [place], [id number], [place] tel:[phone] [place] No Information 3 Konstantin Henderson. [address], [place], [place], [id number], [place]. tel:[phone] [facility], [address] [facility] [address], [place], [place], [id number], [place] tel:[phone] [place] No Information 3 Konstantin Henderson. [address], [place], [place], [id number], [place]. tel:[phone] [facility], [address], [place], [place], [id number], [place] tel:[phone] [place] Semi-Annua l (chief complaint) Primary snoringSlow transit [...] non-insulin antidiabetic drugs 3 Kj Womack. [address], [place], [place], [id number], [place]. tel:[phone] [facility], [address], [place], [place], [id number], [place] tel:[phone] [place] Encounter for genera l adult medical examination without abnormal findings 3 Konstantin Henderson. [address], [place], [place], [id number], [place]. tel:[phone] [facility], 1 [facility] [address], [place], [place], [id number], [place] tel:[phone] [place] OV (chief complaint) Hypertensive heart and kidney disease without heart failure and with stage 3a chronic kidney diseaseChronic kidney disease, stage 3a 2 Konstantin Henderson. [address] [facility] [place], [id number], [place]. tel:[phone] [facility], 1 [facility], [place], [place], [id number], [place] tel:[phone] [place] OV (chief complaint) Hypertensive heart and kidney disease without heart failure and with stage 2 chronic kidney diseaseChronic kidney disease, stage 2 (mild)Type 2 diabetes mellitus with stage 2 chronic kidney disease, without long-term current use of insulinChronic pain of both kneesPain in left kneeOther chronic pain 2 Konstantin Henderson. [address] [place], [place], [id number], [place]. tel:[phone] [facility], 1 [facility], [place], [place], [id number], [place] tel:[phone] [place] Encounter for genera l adult medical examination without abnormal findings 2 Janny Ellis. [address] [place], [id number], [place]. tel:[phone] [facility], 1 [facility], [place], [place], [id number], [place] tel:[phone] [place] Encounter for nutritional assessmentDiabetic nutritional counseling completed 2 Isabel Lyons. [address] [place], [place], [id number], [place]. tel:[phone] [facility], [address] [facility], [place], [place], [id number], [place] tel:[phone] [place] Encounter for rehabilitation evaluation 2 Pipo Hightower. [address] [place], [address]. tel:[phone] [facility], [address] [address], [place], [place], [id number], [place] tel:[phone] [place] Encounter for rehabilitation evaluationOther chronic pain 2 Reece Patel. [address] [place], [place], [id number], [place]. tel:[phone] [facility], [address] [facility], [place], [place], [id number], [place] tel:[phone] [place] PEE (chief complaint) Coronary artery calcification seen [...] general health examination 2 Juan Child. [address] [place], [place], [id number], [place]. tel:[phone] [facility], [address] [address], [place], [place], [address], [place] tel:[phone] [place] Encounter for rehabilitation evaluation 2 Reecetheodore Patel. [address] [place], [place], [id number], [place]. tel:[phone] Family History Family Member Type Diagnosis Age [...] Record Payers Payer name Insurance type Covered libertarian ID Authoriza tion(s) [facility] 16 [id number] [facility] 16 [id number] [facility] 16 [id number] [facility] 16 [id number] [facility] 16 [id number] Social History Type Description Quantity Date Captured Comments Sex Male Smoking Status No Information Chief Complaint And Reason For Visit No Information Plan Of Treatment Date Type Action Status Referral Ordered: Dentistry (related to Encounter for general health examination) ordered Referral Ordered: Referrals: Dentistry ordered Referral Ordered: Referrals: [facility]- Podiatry Location: [facility] ordered Referral Ordered: Referrals: Podiatry. Evaluate and treat Appointment date/timeframe: 05/04/2023 ordered Referral Ordered: Referrals: [facility]- Appointment date/timeframe: 10/27/2022 ordered Referral Ordered: Referrals: Otolaryngology. Follow-up and treat Appointment date/timeframe: 08/25/2022 ordered Referral Referred To: [facility] Ordered: Referrals: Dentistry. [facility]. Evaluate and treat Appointment date/timeframe: 10/15/2022 ordered Referral Referred To: [facility] [place] [place] Ordered: Referrals: Yarn Sorter. [facility] [place] [place]. Evaluate and treat Appointment date/timeframe: 10/15/2022 ordered Referral Referred To: [facility] [place] [place] Ordered: Referrals: Podiatry. [facility] [place] [place]. Evaluate and treat ordered Future Order: Radiology Order Jaqui uriostegui study, unattended ([id number]), Ordered on: Ordered History Of Present Illness Encounter Date Complaint History Of Prese nt Illness Acute Visit PPT is a 77 yr o ld male seen in the clinic with Oma Mosquera [place] as communications professional as PPT is Croatian speaking, seen for respiratory s/sx without cough, States his is coughing and he feels like he is coming down with something. Vitals stable not fever no cough lung sounds clear. 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 and that his toe nails are catching [...] Collective.NO falls documented per [facility] incident reporting SERVICES/CONSULTANTS:[facility] podiatryOPEN [facility] - [...] LFTs normal A1c 5.56/8/23 WBC9.4 H/H 14.3/42 Clf321 BNP 66 Folate 18.1 A1c 5.3 ZCY824/25/23 Juujlowm48 %sat42 UHZS708 Na135 K4.3 Mg2.4 Phos3.7 BUN22 Cr1.46 eGFR49 LFTs normal Alb/Cr ratio 985 Ca 8.9 Ionized Ca 5.2 TSH2.34 W82CH752 MQK557 HDL46 KF46409/ Na 140 K4.2 BUN20 Cr1.38 eGFR53 Ca9.511/ Na140 K4.1 BUN22 Cr1.46 eGFR50 Ca9.511/03/10 Na141 K4.2 BUN19 Cr1.37 eGFR53 AST19 ALT10 AP78 Ca9.3 Alb4.1 Tbili 0.4 HBV core Ab reactive, HBV surface Ab reactive, HCV ab non /13/22 WBC 11.8 H/H13.7/41.2 Adz517 Na142 K4.5 BUN17 Cr1 eGFR78 AST36 ALT63 [...] joined [facility] using januvia and glipizide last tmocvlW2j was 8.8%Dc'd januvia and added Trulicity On [...] Collective.NO falls documented per [facility] incident reporting SERVICES/CONSULTANTS:[facility] podiatryNO OPEN ORDERS OR OPEN DIAGNOSTICS NOTED.Ppt [...] elevate blood sugars, however looking at ppts Ethna readings, average noted to be around 150s with some lows in 60s in the morning, highest around 200s. Noting that ppt has not received his trulicity for a few weeks last month. Per history in [facility], appears ppt had an admission last week [...] night and as needed for ambulation. Per [facility] records, he had COVID pneumonia and required [...] hernia , however per imaging found on [facility] no documentation of a hernia was [...] HCTZ for blood pressure.Labs reviewed. Labs today gbkddpe97/27/22 Na 140 K4.2 BUN20 Cr1.38 eGFR53 Ca9.511/ Na140 K4.1 BUN22 Cr1.46 eGFR50 Ca9.511/03/10 Na141 K4.2 BUN19 Cr1.37 eGFR53 AST19 ALT10 AP78 Ca9.3 Alb4.1 Tbili 0.4 HBV core Ab reactive, HBV surface Ab reactive, HCV ab non tmffaxkv73/13/22 WBC 11.8 H/H13.7/41.2 Cyy588 Na142 K4.5 BUN17 Cr1 eGFR78 AST36 ALT63 AP70 Tbili0.5 Alb4.5 Ca9.8 Urine Alb/Cr ratio 1268Allergies: NKDAHCP reviewed. Email sent to SW and PN to investigate if paperwork is availableAdvance Directives reviewed.MOLST done: 10/19/22 Full codeLast MoCa: 05/01/22GOC: Longevity Diabetes monitoring: Ppt using Ethan, average 180-200 with some in 50s-60s in the past month. OV [facility] OV - 17 JUN 2022HPIVisit to address [...] once weekly injection before I discuss trmayraity Z3FYL4g 8.8On glipizide, metformin, JanuviaPpt comes to [facility] once weeklyPpt is agreeable with TrmayraityWe discuss that I would like him to check his sugars BIDHe cannot write or read He is agreeable to [employer] systemHTN w/ CKDHctz and LisinoprilCr 1.00GFR 78 / CKD 2BP recheck on room 142/84KNEE OAbilateral hx Cant use cortisone inj due to rxn in pastHe would like to try a topical agent Knees aren't given outALLERGIES No changes vs nextgen ROSno N V F Cno CP SOBno abd pain(+)bilateral knee painPEGen male appearing age NAD very pleasant Heart RRR (+)g0k6yjm soft NT with (+)BS in all quadrants, [...] medical records beyond those available in the [facility] system where he had 2 hospitalizations. The [...] plaque. He tells me he saw a completion supervisor in [place] in the past although does not recall [...] we learned [facility] [place] [facility] graft for traumatic injury [...] timeSocial history:Never smoked neverNever drank appreciablyBorn in [place], came [place] until he rests roughly 55 years agoMarried for 5-6 decades.Adult son living in [place]. Several grandchildren living locally. Daughter who I believe lives locally .Patient worked in [employer] and then [employer]Functional history:Needs assistance with lower body bathing and dressingAbility to manage medications limited by illiteracyRarely uses walker or caneFall only in the context of his acute illness [facility] Instructions Date Instruction Additional Infor [...] without long-term current use of insulin 12/11/22 RRB881 TG194 HDL46 CH180- lipid panel today Related [...] disease (CKD) 12/25/22 WBC9.4 H/H 14 .3/42 Wuz073 Folate 18.1 12/11/22 Fzoofyen03 %sat42 KRQT627 repeat labs ordered Related to H/O macrocytic [...] 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 Ppt previously saw a completion supervisor per ppt at [facility], still do not have records despite requesting. [...] with CMP- Ethan to be sent to [facility] for changing q14 days Related to [...] with CMP- Ethan to be sent to [facility] for changing q14 days Related to [...] stage 3a chronic kidney disease, unspecified whether terminal clerk insulin use Ppt BP noted to be [...] Urine Alb/C r ratio 1268 A1c 8.8Per [facility] records ppt had a generalized seizure last [...] metformin and trulicity per conversation with endocrine CHILD WELFARE ASSISTANT at [facility]- Labs today Related to Type 2 diabetes mellitus with stage 3a chronic kidney disease, without long-term current use of insulin 07/15/22 BUN20 Cr1.3 8 qVMK4617/22/22 BUN22 Cr1.46 eGFR50 05/27/22 BUN19 Cr1.37 eGFR53 05/01/22 BUN17 Cr1 eGFR78 Labs today, as the previous 3 test results have been stable Related to Stage 3a chronic kidney disease (CKD) 05/01/22 WBC 11.8 H/ H13.7/41.2 Imj906 Labs today Related to H/O macrocytic anemia [...] 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 Ppt previously saw a completion supervisor per ppt at [facility], still do not have records. Will alert [...] doesnt want to leave his alone, per [facility] records, no TTE noted in the past. [...] details known-There is no immunization record in [facility]. We have no records from primary [...] known asbestosis. He alludes to having a completion supervisor in [place]. We do not currently have any information about this-Await medical records -Consider referral to [facility] pulmonary given his overall goalslikely needs dedicated CT chest Related to Pleural calcification Had status epileptic us in 2021 with [facility] admission. He is not on antiepileptics. MRI [...] cautious with his renal function Related to terminal clerk (current) use of oral hypoglycemic drugs Patient [...] curious assuming strict type 2 diabetes.-Check hemoglobin P5j-Hbfnl urine microalbumin-He is on ELIA inhibitor, would continue the lisinopril-Depending on results of the A1c will adjust medication regimen-Given cognition and difficulties with medication aiming to avoid insulin-Seeing luis armando (Rita Chavarria)next week per service lynuhdnpc-Yjbvuxqr-Siwchlqe Optometry here Related to Type 2 diabetes [...]
--- OUTSIDE RECORDS SUMMARY | 2024-08-30 08:30 | XMS_ITS ---
Author Organization [facility] Address [address] [place] [address] Care Team Providers Care Supervisor Meter Shop Name Role Phone Pilar GASTELUM, Gaby Primary Care Provider Unavail able CallumNika hinojosa Unavailable [phone] Tommy Eli [phone] Encounters Encounter Location Date Provider Diagnosis [address] [address] 08/30/2024 Tommy Eli Plan Of Treatment No Information Progress Notes * LAFLEUR TyreeDOB:1945 (79 yo M)Acc No.[id number]:08/30/2024 Progress Note Patient: Tyree WEBB Provider: Stefani WebbPMartyMMarty :1945 A ge:78 Y S ex:Male Date:08/30/2024 Address:[address] [place] [address], [address], [facility] Pcp:Gaby Quezada MD Subjective: * Chief Complaints: * * Medical History: Objective: * Vitals: Assessment: Plan: * Treatment: * Images: * The named appointment provid er may or may not be the originator of this progress note, and it is not deemed complete until electronically signed by the appointment provider. Sign off status: Pending * Provider: Stefani WebbPMartyMMarty Date: 0 08/30/2024 Generated for Nawaf dent/Vannessa/eTransmitting on: 1 08/08/2024 01:05 AM EST
--- OUTSIDE RECORDS SUMMARY | 2025-02-23 10:15 | XMS_ITS ---
[facility] Address [address] [place] [address] Care Team Providers Care Manager Shift Name Role Phone Pilar GASTELUM, Gaby Primary Care Provider Unavail able Nika Fuller Unavailable [phone] Allergies Allergen (clinical drug ingredient) Drug/Non Drug [...] Active Encounters Encounter Location Date Provider Diagnosis [facility] [address] 02/23/2025 Nika Fuller Type 2 diabetes mellitus [...] Appt Details Follow Up: 2 Months, Reason: Procedure Notes * Category Sub-Category Detail Notes [...] use of a nail nipper and/or dremel-type grinder set up operator, to a more viable healthy nail [...] to maintain effectiveness in symptomatic relief - 17752 Keratoma Treatment Parring or Cutting o f [...] instrumentation by the physician of record - 62856 Progress Notes * Tyree LAFLEURDOB:1945 (79 yo M)Acc No.[id number]:02/23/2025 Progress Note Patient: Tyree WEBB Provider: Tony uFller DPM :1945 A ge:79 Y S ex:Male Date:02/23/2025 Address:[address] [place] [address], [place] [address] Pcp:Gaby Quezada MD Subjective: * Chief Complaints: [...] use of a nail nipper and/or dremel-type grinder set up operator, to a more viable healthy nail [...] to maintain effectiveness in symptomatic relief - 66218. K eratoma Treatment: Parring or Cutting of [...] instrumentation by the physician of record - 04705. * Procedure Codes: 1 1721 DEBRIDE NAIL, 6 OR MORE, Modifiers: XS , 33427 TRIM SKIN LESIONS, 2 TO 4, Modifiers: [...] were answered to their verbally confirmed satisfaction. S hoe Gear Counseling: S HOE Rx - The patient was counseled in [...] Sign off status: Pending * Provider: Tony Fuller DPM Date: 0 02/23/2025 Generated for Nawaf dent/Vannessa/Von on: 08/08/2024 01:04 AM EST History and Physical Notes * HPI (History of Present Illness) Category Sub-Category Detail Notes Category Not es Toe pain Location: B/L feet Duration: several years Course: worse Aggravated by: shoes, any pressure Treatments: change in shoes At Risk footcare Pt States Last PCP Visit: Date: Examination Category Sub-Category Detail Notes Category Not [...]
--- OUTSIDE RECORDS SUMMARY | 2025-06-01 09:45 | XMS_ITS ---
Author Organization [facility] Address [address] [facility] [address] Care Team Providers Care Field Artillery Targeting Technician Name Role Phone Pilar GASTELUM, Gaby Primary Care Provider Unavail Nika Hernandez Unavailable [phone] Medications Medication SIG (Take, Route, Frequency, Duration) [...] Active Encounters En[facility] [place] [address] [facility]/01/[facility]25 Nika Fuller Plan Of Treatment No Information Progress Notes * Tyree LAFLEURDOB:1945 (79 yo M)Acc No.[id number]:06/01/2025 Progress Note Patient: Tyree WEBB Provider: Tony Fuller DPM :1945 A ge:79 Y S ex:Male Date:06/01/2025 Address:[address] [place] [address], [place] [address], [place] [id number] Pcp:Gaby Quezada MD Subjective: * Chief Complaints: [...] enies. C ardiovascular: Pacemaker d enies. M SALESPERSON RECREATIONAL VEHICLES d enies. W PW d enies. C [...] Date: 08/01/2024 Generated for Nawaf dent/Vannessa/Von on: 08/08/2024 01:04 AM EST History and Physical Notes * HPI (History of Present Illness) Category Sub-Category Detail Notes Category Not es At Risk footcare Pt States Last PCP Visit: Date: 5
--- NOTE | 2025-06-07 13:17 | A.OFFPC_ITS ---
Vital Signs 06/07/25 13:19 Height 5 ft 7 in Weight 200 lb BMI 31.3 BP 178/76 H Blood Pressure Location Lt brachial Position Sitting Respiration 18 Pulse 97 Pulse Source Pulse Oximeter Temp Source Temporal Artery Scan Pulse Oximetry (%) 99 Oxygen Delivery Method Room Air Intake Visit Reasons: Annual Exam Company Driver Required: No Accompanied by: Self / Same As Patient Allergies cortisone Adverse Reaction (Intermediate, Verified 06/07/25 13:48) Cough Medication List - Last Reconciled 06/07/25 by Gaby Tamayo MD Advair Diskus 250-50 mcg/dose (fluticasone propion-salmeterol) 1 inh inhalation BID NS amlodipine 10 mg PO DAILY 90 days aspirin 1 tab PO DAILY 90 days blood pressure test kit-large ([facility] Blood Pressure Monitor kit) As directed blood sugar diagnostic ([employer] Ultra Test strips) Use to check blood sugar once a day blood-glucose meter ([employer] Ultra2 Meter) As directed chlorthalidone 25 mg PO DAILY 90 days cholecalciferol (vitamin D3) 25 mcg PO DAILY 90 days docusate sodium (Colace) 100 mg PO DAILY PRN dulaglutide (Trulicity) 0.75 mg (0.5 mL) subcut QWEEK 90 days gabapentin 300 mg PO BEDTIME 90 days glimepiride 4 mg PO DAILY 90 days glipizide 10 mg PO DAILY 90 days hydralazine 25 mg PO TID 30 days lancets ([employer] Delica Lancets) Use to check blood sugars once a day levetiracetam 1,000 mg (2 x 500 mg) PO BID 30 days linagliptin (Tradjenta) 5 mg PO DAILY 90 days lisinopril 40 mg PO DAILY 90 days metformin 1,000 mg PO BID 90 days miscellaneous medical supply As directed omeprazole 20 mg PO DAILY 90 days simvastatin 40 mg PO BEDTIME 90 days [Trapeze bar As directed] [wheelchair As directed] Tobacco use date assessed: 06/07/25 Fall risk assessment: No Falls in past year Last assessed Fall Risk: 06/07/25 Dental Screening Dental Screen Date: 06/07/25 Did you have a dental visit in the last 12 months?: Yes Did you have a dental problem in the last 6 months where you did not have access to dental care?: No Was dental information given to patient?: Patient has dentist HPI HPI Comments History of Present Illness Details The patient is a 79-year-old male presenting for an annual physical exam, management of chronic conditions, and evaluation of right knee pain. He has a history of hypertension, which is currently elevated. His medications for hypertension include amlodipine 10 mg, chlorthalidone, and hydralazine 25 mg three times daily. Blood pressure is elevated today and I will increase hydralazine to 50 mg. Blood pressure will be recheck in 3 weeks by nurse navigator. For type 2 diabetes mellitus, his recent A1c was good. His medication regimen includes weekly Trulicity injections, gabapentin at night, glimepiride, glipizide, and metformin twice daily. The patient reports pain in both knees, with the right knee being worse. He has a history of a seizure disorder, controlled with Keppra, and reports no recent seizures. Other chronic conditions include hyperlipidemia managed with simvastatin, constipation managed with Colace, and acid reflux managed with omeprazole. He has a known allergy to cortisone. - This visit serves as the patient's [facility] physical exam. - Diabetes screening: Recent A1c result was noted to be good. - Vaccinations: An influenza vaccine was requested. - Laboratory studies: Order for new labs was placed. [facility] Medical History (Updated 06/07/25 @ 13:57 by Gaby Tamayo MD) Seizures Microalbuminuria Post-COVID chronic dyspnea Oxygen dependent GERD (gastroesophageal reflux disease) Diabetes mellitus Lumbar degenerative disc disease Pure hypercholesterolemia Essential hypertension Surgical History S/P matrixectomy of toe History of cervical spinal surgery Family History Father No problems noted. Mother No problems noted. Social History Housing: Apartment Alcohol intake: never Patient Tobacco Use Status: Never used Tobacco e-Cigarette/Vaping Use: Never Used Second Hand Smoke Exposure: No service: No Current occupational status: retired and disabled Current occupational exposures/hazards: No Cognitive needs: No Hearing needs: No Vision needs: Yes Questionnaire PHQ-9 Over the last 2 weeks, how often have you been bothered by any of the following problems? 1. Little interest or pleasure in doing things: not at all 2. Feeling down, depressed, or hopeless: not at all 3. Trouble falling or staying asleep, or sleeping too much: not at all 4. Feeling tired or having little energy: more than half the days 5. Poor appetite or overeating: nearly every day 6. Feeling bad about yourself - or that you are a failure or have let yourself or your family down: not at all 7. Trouble concentrating on things, such as reading the newspaper or watching television: nearly every day 8. Moving or speaking so slowly that other people could have noticed. Or the opposite - being so fidgety or restless that you have been moving around a lot more than usual: nearly every day 9. Thoughts that you would be better off or of hurting yourself in some way: not at all Total score: 11 Depression Screening Interpretation: Positive Depression Screening Follow-up: Existing condition and Follow-up Visit Requested Depression Screening Done: Yes 36263 - PHQ-9 Billing: Yes Source: Developed by Drs. Manuelito Calvert, Kunal Rucker and colleagues, with an educational amalia from [employer]. Thrive Questionnaire Date Thrive assessed: 01/12/24 AUDIT C Alcohol Use Questionnaire (AUDIT-C) 1. How often do you have a drink containing alcohol?: Never Total Score: 0 Score Reviewed/Action Taken: No ANUJ-7 AMB Questionnaire ANUJ-7 Date ANUJ - 7 assessed: 01/12/24 Source: Developed by Drs. Manuelito Calvert, Kunal Rucker and colleagues, with an educational amalia from [employer]. Review of Systems Const All systems reviewed & are unremarkable except as noted in HPI and below Card Denies chest pain at rest, Denies chest pain with activity, Denies edema, Denies irregular heart rhythm, Denies claudication, Denies dyspnea, Denies dyspnea on exertion, Denies orthopnea, Denies paroxysmal nocturnal dyspnea and Denies slow heart rate Resp Denies cough, Denies dyspnea and Denies dyspnea on exertion Physical exam (Primary Care) Vital Signs: Last Vital Signs Pulse 97 06/07/25 13:19 Resp 18 06/07/25 13:19 BP 178/76 H 06/07/25 13:19 Pulse Ox 99 06/07/25 13:19 Oxygen Delivery Method Room Air 06/07/25 13:19 BMI result Body Mass Index 31.3 Tobacco/Smoking Status: Tobacco use Status Tobacco use date assessed 06/07/25 06/07/25 13:37 Patient Tobacco Use Status Never used Tobacco 06/07/25 13:17 e-Cigarette/Vaping Use Never Used 06/07/25 13:17 PHQ-9: PHQ-9 Score PHQ-9: Total score 11 06/07/25 16:55 Depression Screening Interpretation: Positive Depression Screening Follow-up: Existing condition and Follow-up Visit Requested Thrive Assessment: Date of Thrive Assessment Date Thrive assessed 01/12/24 06/07/25 13:17 HENMT Head: Yes normal to inspection, Yes normocephalic and Yes atraumatic Ears: external ears normal Eyes General: appearance normal, both eyes and all related structures Eyelids: Yes eyelids normal Conjunctivae: conjunctivae normal Neck Neck: Yes normal visual inspection and Yes supple Resp Effort & Inspection: normal respiratory effort Auscultation: clear to auscultation bilaterally Cardio Jugular venous distension: no JVD Rate: regular rate Rhythm: regular rhythm Heart sounds: S1 normal heart sound present and S2 normal heart sound present GI Inspection: Yes normal to inspection Palpation (GI): Soft to palpation and nontender Auscultation: normal bowel sounds Skin General skin exam: no rashes or lesions noted Neuro General: no focal motor deficits Extrem General: Yes full ROM Psych Appearance: grossly normal Office Procedures Flu Questionnaire Does the patient have a severe egg allergy?: No Does the patient have severe life threatening allergies?: No Does the patient have a fever or illness today?: No Has the patient ever had Guillain-[place] Syndrome?: No Has the patient ever had any past reaction to a flu shot?: No Results AMB Hemoglobin A1c AMB Hemoglobin A1c 5.7 % Last Edit by Argelia Bobo MA on 06/07/25 16:57 Immunizations Fluarix [id number] (PF) 45 mcg (15 mcg x 3)/0.5 mL IM syringe Performing Provider: Gaby Tamayo MD Performing Location: [facility] Administered by: Juno Lafleur CMA on 06/07/25 14:09 Dose Route Admin Location Dispensed Lot Number Expiration Date NDC Pediatric Np 0.5 mL IM Right Deltoid 0.5 mL [id number] 01/16/26 18719-770-04 [employer] VIS Given Date VIS Provided VIS Publication Date 06/07/25 Single Vaccine 24 Eligibility Eligibility Date Funding Source [facility] Eligible-Medicaid 06/07/25 Private Results Reviewed Results Reviewed: Laboratory Last Values Hgb A1c (Clinic) 5.7 % (4.0-6.0) 06/07/25 13:26 Coding Level of Care Code Est Pt Level 4 (34509) Est Pt Prev Care >65y(07154) Diagnoses Physical exam Z00.00 Seizures R56.9 Right knee pain M25.561 Type 2 diabetes mellitus without complication, without long-term current use of insulin E11.9 Diabetes mellitus type: type 2 Diabetes mellitus terminal computer operator insulin use: without terminal computer operator use Diabetes mellitus complication status: without complication Additional Codes PHQ-9 - 02940 - PHQ-9 Billing: Yes ([id number]) Time Spent (min) 34 Assessment & Plan Assessment & Plan (1) Physical exam: Code(s): Z00.00 - Encounter for general adult medical examination without abnormal fi ndings Category: Medical (2) Seizures: Code(s): R56.9 - Unspecified convulsions Category: Medical (3) Right knee pain: Code(s): M25.561 - Pain in right knee Category: Medical (4) Diabetes mellitus: Code(s): E11.9 - Type 2 diabetes mellitus without complications Category: Medical Qualifiers: Diabetes mellitus type: type 2 Diabetes mellitus terminal computer operator insulin use: without group home use Diabetes mellitus complication status: without complication Qualified Code(s): E11.9 - Type 2 diabetes mellitus without complications Plan Plan 1. Plan Patient was informed and verbally consented to the use of an ambient scribe for clinic note documentation during this visit. 1. Physical exam New laboratory studies will be ordered. An influenza vaccine was requested and will be administered. 2. Type 2 Diabetes Mellitus The patient's blood sugar is well-controlled, with a recent good A1c result. Due to good glycemic control, glipizide 10 mg will be discontinued. He will continue his other diabetes medications, including weekly Trulicity, glimepiride, and metformin. 3. Right Knee Pain The patient reports bilateral knee pain, more significant in the right knee, with suspicion of arthritis. An X-ray of the right knee will be ordered to further evaluate the cause. A referral for physical therapy for the right knee will also be placed. 4. Seizure Disorder The patient's seizure disorder is stable, and he reports no recent seizure activity. He will continue his current regimen of Keppra. Orders: Orders Lipid Panel Today E78.5 - Hyperlipidemia, unspecified AMB Hemoglobin A1c Today E11.9 - Type 2 diabetes mellitus without complications XR knee RT 2V Today M25.561 - Pain in right knee PT Evaluation and Treatment Today M25.561 - Pain in right knee Microalbumin, Random (w Creat) Today R80.9 - Proteinuria, unspecified [facility]. Panel Fast Today E11.9 - Type 2 diabetes mellitus without complications Influenza [id number] Immunization Today Z23 - Encounter for immunization Medications: New hydralazine 50 mg PO TID 90 tabs 5RF 30 days Discontinued glipizide Discontinued Reason: Patient Completed Course 10 mg PO DAILY 90 days 90 tabs 4RF E11.9 - Type 2 diabetes mellitus without complications hydralazine Discontinued Reason: Patient Completed Course 25 mg PO TID 30 days 90 tabs 3RF I10 - Essential (primary) hypertension
[2025-06-07 13:19] VITALS: BP 178/76; PULSE 97; RESP 18; O2SAT 99; BMI 31.3
--- OUTSIDE RECORDS SUMMARY | 2025-06-08 01:05 | XMS_ITS | Patient Health Record ---
Author Organization [facility] Address [address] [place] [address] Care Team Providers Care Grain Combine Driver Name Role Phone Pilar GASTELUM, Gaby Primary Care Provider Unavail able Niak Fuller Unavailable [phone] Tommy Eli Unavailable [phone] Allergies Allergen (clinical drug ingredient) Drug/Non Drug Allergy documented on EMR Reaction Allergy Type Onset Date Status injectable steroids cortisone (uncoded) shortness of breath Allergy Active Results Component Value Reference Range Notes HEMOGLOBIN A1C (GLYCOHEMOGLO BIN) Reviewed date:09/29/2024 03:46:48 PM Interpretation: Performing Lab: Notes/Report: HEMOGLOBIN A1C % (HH) 6.3 Reason For Referral No Information Medications Medication SIG (Take, Route, Frequency, Duration) Notes Start Date End Date Status Tradjenta 5 MG Oral; Duration: 30 Days Active glipiZIDE 10 MG Oral; Duration: 30 Days Active GoodSense Aspirin 81 MG Oral; Duration: 30 Days Active Lisinopril 20 MG Oral; Duration: 30 Days Not-Taking Extra Depth Orthopedic Shoes, (1) Pair With (3) Pair Custom Heat Molded Multidensity Innersoles Dx: NIDDM/PVD(E11.51), Hammertoe Foot Deformity(M20.41,M20.42) , Preulcerative Skin Lesion(s)(L85.1) Wear Daily; Duration: 365 days Active Trulicity 0.75 MG/0.5ML Subcutaneous; Du ration: 28 Days Active amLODIPine Besylate 10 MG Oral; [...] MG Oral; Duration: 30 Days Acti ve metFORMIN HCl 1000 MG Oral; Duration: 30 Days Active levETIRAcetam 500 MG Oral; Duration: 30 Days Active Simvastatin 40 MG Oral; Duration: 30 Days Active Lisinopril 10 MG Oral; Duration: 30 Days Active Lisinopril 10 MG Oral; Duration: 30 Days Active metFORMIN HCl 1000 MG Oral; Duration: 30 Days Active Simvastatin 40 MG Oral; Duration: 30 Days Active Lisinopril 40 MG Oral; Duration: 30 Days Active Gabapentin 300 MG Oral; Duration: 30 Days Active Glimepiride 4 MG Oral; Duration: 30 Days Active Lisinopril [...] Problem Acquired hammer toe of right foot ([id number] 105) Other hammer toe(s) (acquired), right foot (M20.41) Active confirmed Problem Type 2 diabetes mellitus with peripheral angiopathy ([id number]) Type 2 diabetes mellitus with diabetic peripheral angiopathy without gangrene (E11.51) Active confirmed Q7(A), Q8(2B), Q9(1B,2C) Problem Acquired hammer toe of left foot ([id number] 103) Other hammer toe(s) (acquired), left foot (M20.42) Active confirmed Vital Signs Blood pressure diastolic 70 mm Hg 12/15/2024 Height 5ft 8in in 12/15/2024 Blood pressure systolic 133 mm Hg 12/15/2024 Weight 180 lbs 12/15/2024 BMI 27.37 kg/m2 12/15/2024 Procedures Procedure Date Ordered Date Performed Result Body Sit e 19286-HJPSWQJ NAIL, 6 OR MORE 06/21/2024 N/A [id number] NAIL, 6 OR MORE 09/29/2024 N/A Encounters Encounter Location Date Provider Diagnosis [address] [address] 06/21/2024 Tommy Eli Type 2 diabetes mellitus with diabetic peripheral angiopathy without gangrene E11.51 ; Tinea unguium B35.1 ; Pain in right toe(s) M79.674 and Pain in left toe(s) M79.[address] [address] 09/29/2024 Tommy Eli Controlled type 2 diabetes mellitus with diabetic polyneuropathy, without long-term current use of insulin E11.42 and Tinea unguium B35.[address] [address] 12/15/2024 Nika Fuller Type 2 diabetes mellitus with diabetic peripheral angiopathy without gangrene E11.51 ; Tinea unguium B35.1 ; Pain in right toe(s) M79.674 ; Pain in left toe(s) M79.675 ; Other hammer toe(s) (acquired), left foot M20.42 and Other hammer toe(s) (acquired), right foot M20.[address] [address] 06/06/2025 Nika Fuller [address] [address] 08/01/2024 Tommy Eli [address] [address] 2024 Tommy Eli [address] [address] 06/01/2025 Nika Fuller Assessments Encounter Date Diagnosis (ICD Code) Assessment [...] Treatment Pending Test Test Name Order Date [id number] NAIL, 6 OR MORE 06/21/2024 [id number] NAIL, 6 OR MORE 09/29/2024 Insurance Providers Payer Name Payer Address Payer Phone Subscriber Number Group Number Insured Name Patient Relationship to Insured Coverage Start Date Coverage End Date [facility] [employer] Claims [address] [place] [id number] Tyree Lafleur Self - patient is the insured Medical (General) History Medical History History ICD Code Arthritis asthma Back,Hip,and Knee pain Broken bones Cataracts covid-19 Dementia type II diabetes High Blood Pressure Chicken pox Joint implants/screws eye injections Surgical History Surgery Date(Month/Year) bone implant 1970
== END 2025-06-07 14:25 | disposition home or self-care (01) ==
LOC: HO.HMCH 13:12
PROVIDERS: PCP Internal Medicine; Visit Provider Internal Medicine
DX: Z00.00 Encounter for general adult medical examination without abnormal findings (principal); M25.561 Pain in right knee; R56.9 Unspecified convulsions; E11.9 Type 2 diabetes mellitus without complications; Z23 Encounter for immunization

== ENCOUNTER 2025-06-07 13:11 | Outpatient (REF) | payer OTHER, SELFPAY ==
[2025-06-07 19:41] LABS: Anion Gap 16 (12-20); Blood Urea Nitrogen 33 mg/dL (9-16); Calcium 9.1 mg/dL (8.4-10.2); Carbon Dioxide 23 mmol/L (22-29); Chloride 105 mmol/L (96-108); Estimated Glomerular Filt Rate 27; Potassium 3.9 mmol/L (3.3-5.1); Sodium 140 mmol/L (135-145)
== END 2025-06-07 13:12 | disposition home or self-care (01) ==
LOC: HO.HKASLDS 13:11
PROVIDERS: Internal Medicine Hypertension Specialist; PCP Internal Medicine; Visit Provider Internal Medicine
DX: Z00.01 Encounter for general adult medical examination with abnormal findings (principal); Z23 Encounter for immunization; R56.9 Unspecified convulsions; M25.561 Pain in right knee; E11.9 Type 2 diabetes mellitus without complications; Z79.84 Long term (current) use of oral hypoglycemic drugs; Z79.85 Long-term (current) use of injectable non-insulin antidiabetic drugs; Z79.899 Other long term (current) drug therapy; Z13.31 Encounter for screening for depression
CPT/HCPCS: 36415; 80048; 83036; 90471; 90656; 96127; 99212; 99397

== ENCOUNTER 2025-06-14 09:42 | Outpatient (REF) | payer OTHER, SELFPAY ==
[2025-06-14 15:27] LABS: Alanine Aminotransferase 15 U/L (0-40); Albumin Level 4.2 g/dL (3.5-5.0); Alkaline Phosphatase 88 U/L (39-117); Anion Gap 14 (12-20); Aspartate Amino Transferase 29 U/L (5-37); Blood Urea Nitrogen 33 mg/dL (9-16); Calcium 9.1 mg/dL (8.4-10.2); Carbon Dioxide 23 mmol/L (22-29); Chloride 109 mmol/L (96-108); Cholesterol 150 mg/dL (<200); Estimated Glomerular Filt Rate 25; HDL Cholesterol 42 mg/dL (>40); Potassium 4.1 mmol/L (3.3-5.1); Sodium 142 mmol/L (135-145); Total Protein 7.3 g/dL (6.5-8.0); Triglycerides 184 mg/dL (<150)
== END 2025-06-14 09:43 | disposition home or self-care (01) ==
LOC: HO.HKASLDS 09:42
PROVIDERS: PCP Internal Medicine; Visit Provider Internal Medicine Hypertension Specialist
DX: E11.22 Type 2 diabetes mellitus with diabetic chronic kidney disease (principal); I12.9 Hypertensive chronic kidney disease with stage 1 through stage 4 chronic kidney disease, or unspecified chronic kidney disease; N18.9 Chronic kidney disease, unspecified; E78.5 Hyperlipidemia, unspecified; Z79.4 Long term (current) use of insulin; Z79.84 Long term (current) use of oral hypoglycemic drugs
CPT/HCPCS: 36415; 80053; 80061; 99212

== ENCOUNTER 2025-06-14 09:42 | Outpatient (AMB) | payer OTHER, SELFPAY ==
--- OUTSIDE RECORDS SUMMARY | 2024-01-07 09:17 | XMS_ITS | Continuity of Care Document ---
Author Organization [facility] Address [address] [address] Phone Care Team Providers Care Laborer Hoisting Name Role Phone Hollis BECKER, Martha Unavailable [...] use as directed - Active DELIVER TO [facility] [address] Trulicity 1.5 mg/0.5 [...] Active DELIVER TO HOME FreeStyle Ethan 2 [place] use as directed - Active PLEASE DELIVER TO HOME Prevnar 20 (PF) 0.5 mL intramuscular syringe inject 0.5 milliliter by intramuscular route once 0.50 milliliter - Active Please deliver to site in [place] Advance Directives Directive Yes / No Effective Date File Name No Information Encounters Encounter Description Practice Location Reason(s) For Visit Diagnoses Date Provider [facility], [address] [place] [address], [place], [place], [id number], [place] tel:[phone] [place] No Information 4 [facility]. [address], [place], [place], [id number], [place]. tel:[phone] [facility], [address], [place], [place], [id number], [place] tel:[phone] [place] No Information 4 [facility]. [address] [place], [place], [id number], [place]. tel:[phone] [facility], [address], [place], [place], [id number], [place] tel:[phone] [place] Acute Visit (chief complaint) Illness, unspecifiedLong toenail 4 [facility]. [address] [place], [place], [id number], [place]. tel:[phone] [facility], [address], [place], [place], [id number], [place] tel:[phone] [place] Encounter for [facility] adult medical examination without abnormal findings 4 [facility]. [address] [place], [place], [id number], [place]. tel:[phone] [facility], [address], [place], [place], [id number], [place] tel:[phone] [place] No Information 3 Bhagavatula Ujjwala. [address] [place], [place], [id number], [place]. tel:[phone] [facility], [address], [place], [place], [id number], [place] tel:[phone] [place] No Information 3 Bhagavatula Ujjwala. [address] [place], [place], [id number], [place]. tel:[phone] [facility], [address], [place], [place], [id number], [place] tel:[phone] [place] No Information 3 Bhagavatula Ujjwala. [address] [place], [place], [id number], [place]. tel:[phone] [facility], [address], [place], [place], [id number], [place] tel:[phone] [place] Encounter for rehabilitation evaluation 3 Ellie Nesbitt. [address] [place], [id number], [place]. tel:[phone] [facility], [address], [place], [place], [id number], [place] tel:[phone] [place] Type 2 diabetes mellitus with stage 3b chronic kidney disease, without long-term current use of insulinChronic kidney disease, stage 3b 3 Bhagavatula Ujjwala. [address] [place], [id number], [place]. tel:[phone] [facility], [address], [place], [place], [id number], [place] tel:[phone] [place] No Information 3 Bhagavatula Ujjwala. [address] [place], [id number], [place]. tel:[phone] [facility], [address], [place], [place], [id number], [place] tel:[phone] [place] No Information 3 Bhagavatula Ujjwala. [address] [place], [id number], [place]. tel:[phone] [facility], [address], [place], [place], [id number], [place] tel:[phone] [place] Stage 3a chronic kid gifty disease (CKD)Type 2 diabetes mellitus with stage 3b chronic kidney disease, without long-term current use of insulinChronic kidney disease, stage 3b 3 Bhagavatula Ujjwala. [address], [place], [place], [id number], [place]. tel:[phone] [facility], [address] [facility] [address] [facility], [place], [place], [id number], [place] tel:[phone] [place] Encounter for rehabilitation evaluation Sep-2 3 Avni Correa. [address], [place], [id number], [place]. tel:[phone] [facility], [address] [facility] [facility] [address] [facility], [place], [place], [id number], [place] tel:[phone] [place] Encounter for rehabilitation evaluation Sep-2 3 Bryce Wright. [address], [place], [id number], [place]. tel:[phone] [facility], [address] [facility], [place], [place], [id number], [place] tel:[phone] [place] No Information Sep- 3 Bhagavatula Ujjwala. [address] [facility] [facility] [place], [id number], [place]. tel:[phone] [facility], [address] [facility] [address] [facility], [place], [place], [id number], [place] tel:[phone] [place] Semi-Annua l (chief complaint) Encounter for nutritional assessment Sep- 3 Genia Garcia. [address] [facility], [place], [address]. tel:[phone] [facility], [address] [facility] [address] [facility], [place], [place], [id number], [place] tel:[phone] [place] Semi-Annua l (chief complaint) Primary snoringLung fibrosisPleural [...] kidney disease 3 Maddisonagaevelintula Ujjwala. [address] [place], [id number], [place]. tel:[phone] [facility], [address], [place], [place], [id number], [place] tel:[phone] [place] No Information 3 Juankatei Robertsonn. [address] [place], [place], [id number], [place]. 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 [address] [facility] [place], [place], [id number], [place]. tel:[phone] [facility], [address], [place], [place], [id number], [place] tel:[phone] [place] Shortness of breath 3 Kj Childresswala. [address] [facility] [place], [id number], [place]. tel:[phone] [facility], [address], [place], [place], [id number], [place] tel:[phone] [place] Fall (chief complaint) Leg pain, rightType 2 diabetes mellitus with stage 3a chronic kidney disease, without long-term current use of insulinChronic kidney disease, stage 3a 3 Maddisonagaevelintula Ulambertojwala. [address] [facility] [place], [id number], [place]. tel:[phone] [facility], [address], [place], [place], [id number], [place] tel:[phone] [place] OV (chief complaint) Type 2 diabetes mellitus with stage 3a chronic kidney disease, unspecified whether termite treater insulin useChronic kidney disease, stage 3aLong-term (current) use of injectable non-insulin antidiabetic drugs 3 Konstantin Henderson. [address], [place], [place], [id number], [place]. tel:[phone] [facility], [address], [place], [place], [id number], [place] tel:[phone] [place] No Information 3 Konstantin Henderson. [address], [place], [place], [id number], [place]. tel:[phone] [facility], [address], [place], [place], [id number], [place] tel:[phone] [place] No Information 3 Konstantin Henderson. [address], [place], [place], [id number], [place]. tel:[phone] [facility], [address], [place], [place], [id number], [place] tel:[phone] [place] Semi-Annua l (chief complaint) Primary snoringSlow transit [...] drugs 3 Kj Womack. [address], [place], [place], [id number], [place]. tel:[phone] [facility], [address], [place], [place], [id number], [place] tel:[phone] [place] Encounter for genera l adult medical examination without abnormal findings 3 Konstantin Henderson. [address], [place], [place], [id number], [place]. tel:[phone] [facility], [address] [facility] [address], [place], [place], [id number], [place] tel:[phone] [place] OV (chief complaint) Hypertensive heart and kidney disease without heart failure and with stage 3a chronic kidney diseaseChronic kidney disease, stage 3a 2 Konstantin Henderson. [address] [facility] [place], [id number], [place]. tel:[phone] [facility], [address] [facility] [address] [facility], [place], [place], [id number], [place] tel:[phone] [place] OV (chief complaint) Hypertensive heart and kidney disease without heart failure and with stage 2 chronic kidney diseaseChronic kidney disease, stage 2 (mild)Type 2 diabetes mellitus with stage 2 chronic kidney disease, without long-term current use of insulinChronic pain of both kneesPain in left kneeOther chronic pain 2 Konstantin Henderson. [address] [place], [id number], [place]. tel:[phone] [facility], [address] [facility] [address] [facility], [place], [place], [id number], [place] tel:[phone] [place] Encounter for genera l adult medical examination without abnormal findings 2 Janny Ellis. [address] [place], [address], [place]. tel:[phone] [facility], [address] [facility] [address] [facility], [place], [place], [id number], [place] tel:[phone] [place] Encounter for nutritional assessmentDiabetic nutritional counseling completed 2 Isabel Lyons. [address] [place], [id number], [place]. tel:[phone] [facility], [address] [facility], [place], [place], [address], [place] tel:[phone] [place] Encounter for rehabilitation evaluation 2 Pipo Hightower. [address] [place], [address]. tel:[phone] [facility], [address] [address], [place], [place], [id number], [place] tel:[phone] [place] Encounter for rehabilitation evaluationOther chronic pain 2 Reece Patel. [address], [place], [id number], [place]. tel:[phone] [facility], [address] [facility], [place], [place], [id number], [place] tel:[phone] [place] PEE (chief complaint) Coronary artery calcification seen [...] general health examination 2 Juan Child. [address], [place], [id number], [place]. tel:[phone] [facility], [address] [address], [place], [place], [id number], [place] tel:[phone] [place] Encounter for rehabilitation evaluation 2 Reecetheodore Patel. [address], [place], [id number], [place]. tel:[phone] Family History Family Member Type Diagnosis Age [...] type Covered green party ID Authoriza tion(s) [facility] 16 [id number] [facility] 16 [id number] [facility] 16 [id number] [facility] 16 [id number] [facility] 16 [id number] Social History Type Description Quantity Date Captured Comments Sex Male Smoking Status No Information Chief Complaint And Reason For Visit No Information Plan Of Treatment Date Type Action Status Referral Ordered: Dentistry (related to Encounter for general health examination) ordered Referral Ordered: Referrals: Dentistry ordered Referral Ordered: Referrals: [facility]- Podiatry Location: [facility] ordered Referral Ordered: Referrals: Podiatry. Evaluate and treat Appointment date/timeframe: 05/04/2023 ordered Referral Ordered: Referrals: [facility]- Appointment date/timeframe: 10/27/2022 ordered Referral Ordered: Referrals: Otolaryngology. Follow-up and treat Appointment date/timeframe: 08/25/2022 ordered Referral Referred To: [facility] Ordered: Referrals: Dentistry. [facility]. Evaluate and treat Appointment date/timeframe: 10/15/2022 ordered Referral [place] [facility] [place] [place] Ordered: Referrals: Vice President For Philanthropy. [facility] [place]. Evaluate and treat Appointment date/timeframe: 10/15/2022 ordered Referral Referred To: [facility] [place] Ordered: Referrals: Podiatry. [facility] [place]. Evaluate and treat ordered Future Order: Radiology Order Jaqui uriostegui study, unattended ([id number]), Ordered on: Ordered History Of Present Illness Encounter Date Complaint History Of Prese nt Illness Acute Visit PPT is a 77 yr o ld male seen in the clinic with Oma Mosquera MA as twisting press operator as PPT is Yoruba speaking, seen for respiratory s/sx without cough, States his is coughing and he feels like he is coming down with something. Vitals stable not fever no cough lung sounds clear. 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 Toe nail jagged and thicken, Provider provided nail care Semi-Annual Semi-Annual Comments: Partic ipant is being examined [...] Collective.NO falls documented per [facility] incident reporting SERVICES/CONSULTANTS:[facility] podiatryOPEN ORDERSHome sleep study - maylin still wantsNotes he [...] LFTs normal A1c 5.56/8/23 WBC9.4 H/H 14.3/42 Whq166 BNP 66 Folate 18.1 A1c 5.3 EHR667/25/23 Sumnnskc80 %sat42 ZWYP635 Na135 K4.3 Mg2.4 Phos3.7 BUN22 Cr1.46 eGFR49 LFTs normal Alb/Cr ratio 985 Ca 8.9 Ionized Ca 5.2 TSH2.34 N97MF683 BXD669 HDL46 BU83762/ Na 140 K4.2 BUN20 Cr1.38 eGFR53 Ca9.511/ Na140 K4.1 BUN22 Cr1.46 eGFR50 Ca9.511/03/10 Na141 K4.2 BUN19 Cr1.37 eGFR53 AST19 ALT10 AP78 Ca9.3 Alb4.1 Tbili 0.4 HBV core Ab reactive, HBV surface Ab reactive, HCV ab non awvpsyhq01/13/22 WBC 11.8 H/H13.7/41.2 Xfw213 Na142 K4.5 BUN17 Cr1 eGFR78 AST36 ALT63 AP70 Tbili0.5 Alb4.5 Ca9.8 Urine Alb/Cr ratio 1268 A1c 8.8Allergies: NKDAHCP reviewed. Advance Directives reviewed.MOLST done: 10/19/22 Full codeLast MoCa: 05/01/22GOC: Longevity Diabetes monitoring: Ppt doesn't want to check it anymore Comments: Ppt se en for post fall [...] discussed his A1c results and medication management. Fall OV Tyree Garcia Maddison era TO DOLabs - a1c, CMPDc glipizideHPIppt joined SE using januvia and glipizide last lluxlrG2r was 8.8%Dc'd januvia and added Trulicity On [...] full sentences Psych pleasant cooperative answers appropriately Comments: Partic ipant is being examined during [...] Collective.NO falls documented per [facility] incident reporting SERVICES/CONSULTANTS:[facility] podiatryNO OPEN ORDERS OR OPEN DIAGNOSTICS NOTED.Ppt [...] few weeks last month. Per history in [facility], appears ppt had an admission last [...] night and as needed for ambulation. Per [facility] records, he had COVID pneumonia and [...] hernia , however per imaging found on [facility] records no documentation of a [...] HCTZ for blood pressure.Labs reviewed. Labs today /27/22 Na 140 K4.2 BUN20 Cr1.38 eGFR53 Ca9. Na140 K4.1 BUN22 Cr1.46 eGFR50 Ca9.511 Na141 K4.2 BUN19 Cr1.37 eGFR53 AST19 ALT10 AP78 Ca9.3 Alb4.1 Tbili 0.4 HBV core Ab reactive, HBV surface Ab reactive, HCV ab non vyfutsca79/13/22 WBC 11.8 H/H13.7/41.2 Wbf670 Na142 K4.5 BUN17 Cr1 eGFR78 AST36 ALT63 AP70 Tbili0.5 Alb4.5 Ca9.8 Urine Alb/Cr ratio 1268Allergies: NKDAHCP reviewed. Email sent to SW and PN to investigate if paperwork is availableAdvance Directives reviewed.MOLST done: 10/19/22 Full codeLast MoCa: 05/01/22GOC: Longevity Diabetes monitoring: Ppt using Ethan, average 180-200 with some in 50s-60s in the past month. [facility] 2022HPIVisit to address [...] once weekly injection before I discuss trmayraity Z2KER0a 8.8On glipizide, metformin, JanuviaPpt comes to SE once weeklyPpt is agreeable with TrmayraityWe discuss that I would like him to check his sugars BIDHe cannot write or read He is agreeable to ZenMate systemHTN w/ CKDHctz and LisinoprilCr 1.00GFR 78 / CKD 2BP recheck on room 142/84KNEE OAbilateral hx Cant use cortisone inj due to rxn in pastHe would like to try a topical agent Knees aren't given outALLERGIES No changes vs nextgen ROSno N V F Cno CP SOBno abd pain(+)bilateral knee painPEGen male appearing age NAD very pleasant Heart RRR (+)b6n5mvs soft NT with (+)BS in all quadrants, [...] medical records beyond those available in the [facility] system where he had 2 hospitalizations. [...] plaque. He tells me he saw a screen maker in [place] in the past although does not recall [...] we learned he [place] [facility] bone [place] for [...] timeSocial history:Never smoked neverNever drank appreciablyBorn in [place], came to [place] until he rests roughly 55 years agoMarried for 5-6 decades.Adult son living in [place]. Several grandchildren living locally. Daughter who I believe lives locally .Patient worked in [employer] and then [employer]Functional history:Needs assistance with lower body bathing and dressingAbility to manage medications limited by illiteracyRarely uses walker or caneFall only in the context of his acute illness [facility] Instructions Date Instruction Additional [...] without long-term current use of insulin 12/11/22 SIB224 TG194 HDL46 CH180- lipid panel today Related [...] disease (CKD) 12/25/22 WBC9.4 H/H 14 .3/42 Xpj348 Folate 18.1 12/11/22 Odzrrhya33 %sat42 HXPF684 repeat labs ordered Related to H/O macrocytic [...] 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 Ppt previously saw a screen maker per ppt at [facility], still do not have records despite requesting. [...] stage 3a chronic kidney disease, unspecified whether termite treater insulin use Ppt BP noted to be [...] Urine Alb/C r ratio 1268 A1c 8.8Per [facility] records ppt had a generalized [...] metformin and trulicity per conversation with endocrine SUPERVISOR OF INSTRUCTION at [facility]- Labs today Related to Type 2 diabetes mellitus with stage 3a chronic kidney disease, without long-term current use of insulin 07/15/22 BUN20 Cr1.3 8 fYBL8950/22/22 BUN22 Cr1.46 eGFR50 05/27/22 BUN19 Cr1.37 eGFR53 05/01/22 BUN17 Cr1 eGFR78 Labs today, as the previous 3 test results have been stable Related to Stage 3a chronic kidney disease (CKD) 05/01/22 WBC 11.8 H/ H13.7/41.2 Sby119 Labs today Related to H/O macrocytic anemia [...] 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 Ppt previously saw a screen maker per ppt at [place], still do not have records. Will alert [...] doesnt want to leave his alone, per [facility] records, no TTE noted in [...] collect 40mg tabs tomorrownew meds sent to pharmacyGearbox Softwarell check BMP in 30d to trend BUN/Cravoid [...] to ortho Related to Other chronic pain ppt endorses low lev el chronic pain that can be worse some dayshe has had cortisone inj in the past but did not toleratehe would like to try a topical agent voltaren prescribedexam overall benignif worsening we can xray and/or refer to ortho Related to Pain in left knee A1c 8.8%currently ta [place] po meds onlyOn [...] to Chronic kidney disease, stage 2 (mild) BP recheck on exam 1 42/84ppt reports he gets very nervous seeing doctorsCr 1.00GFR 78 / CKD 2cont evalwill do BP recheck in 2 weeks in centerconsider CCB if still elevated Related to 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 He alludes to having a screen maker in [place]. We do not currently have any information about this-Await medical records -Consider referral to [facility] pulmonary given his overall goalslikely needs dedicated CT chest Related to Pleural calcification Had status epileptic us in 2021 with [facility] admission. He is not on antiepileptics. 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
--- OUTSIDE RECORDS SUMMARY | 2024-08-30 08:30 | XMS_ITS ---
Author Organization [facility] Address [address] [place] [address] Care Team Providers Care Nonprofit Financial Controller Name Role Phone Pilar GASTELUM, Gaby Primary Care Provider Unavail able CallumNika hinojosa Unavailable [phone] Tommy Eli [phone] Encounters Encounter Location Date Provider Diagnosis [address] [address] 08/30/2024 Tommy Eli Plan Of Treatment No Information Progress Notes * LAFLEUR TyreeDOB:1945 (79 yo M)Acc No.[id number]:08/30/2024 Progress Note Patient: Tyree WEBB Provider: Stefani WebbPMartyMMarty :1945 A ge:78 Y S ex:Male Date:08/30/2024 Address:[address] [place] [address], [address], [facility] Pcp:Gaby Quezada MD Subjective: * Chief Complaints: [...] 08/30/2024 Generated for Nawaf dent/Vannessa/eTransmitting on: 1 08/14/2024 11:04 AM EST
--- OUTSIDE RECORDS SUMMARY | 2025-02-23 10:15 | XMS_ITS ---
Author Organization [facility] Address [address] [facility] [place] [address] Care Team Providers Care Automobile Tire Builder Name Role Phone Pilar GASTELUM, Gaby Primary Care Provider Unavail able Nika Fuller Unavailable [phone] Allergies Allergen (clinical drug ingredient) Drug/Non Drug [...] Active Encounters Encounter Location Date Provider Diagnosis [facility] [address] 02/23/2025 Nika Fuller Type 2 diabetes mellitus [...] use of a nail nipper and/or dremel-type lens edge grinder machine, to a more viable healthy nail plate [...] to maintain effectiveness in symptomatic relief - 63400 Keratoma Treatment Parring or Cutting o f [...] instrumentation by the physician of record - 66597 Progress Notes * Tyree LAFLEURDOB:1945 (79 yo M)Acc No.[id number]:02/23/2025 Progress Note Patient: Tyree WEBB Provider: Tony Fuller DPM :1945 A ge:79 Y S ex:Male Date:02/23/2025 Address:[address] [place] [address], [place] [address] Pcp:Gaby Quezada MD Subjective: * Chief Complaints: [...] use of a nail nipper and/or dremel-type lens edge grinder machine, to a more viable healthy nail plate [...] to maintain effectiveness in symptomatic relief - 17907. K eratoma Treatment: Parring or Cutting of [...] instrumentation by the physician of record - 99117. * Procedure Codes: 1 1721 DEBRIDE NAIL, 6 OR MORE, Modifiers: XS , 05201 TRIM SKIN LESIONS, 2 TO 4, Modifiers: [...] 0 02/23/2025 Generated for Nawaf dent/Vannessa/Von on: 08/14/2024 11:03 AM EST History and Physical Notes * [...]
--- OUTSIDE RECORDS SUMMARY | 2025-06-01 09:45 | XMS_ITS ---
Author Organization [facility] Address [address] [place] [address] Care Team Providers Care Metal Furnace Operator Name Role Phone Pilar GASTELUM, Gaby Primary Care Provider Unavail Nika Hernandez Unavailable [phone] Medications Medication SIG (Take, Route, Frequency, Duration) Notes Start Date End Date Status Extra Depth Orthopedic Shoes, (1) Pair With (3) Pair Custom Heat Molded Multidensity Innersoles Dx: NIDDM/PVD(E11.51), Hammertoe Foot Deformity(M20.41,M20.42), Preulcerative Skin Lesion(s)(L85.1) Wear Daily; Duration: 365 days Active Trulicity 0.75 MG/0.5ML Subcutaneous; Du ration: 28 Days Active Glimepiride 4 MG Oral; Duration: 30 Days Active Tradjenta 5 MG Oral; Duration: 30 Days Active glipiZIDE 10 MG Oral; Duration: 30 Days Active Lisinopril 40 MG Oral; Duration: 30 Days Active levETIRAcetam [...] Besylate 10 MG Oral; Duration: 30 Days Active Encounters Encounter [facility] Date [facility] [place] [address] [facility]/2025 Nika Fuller Plan Of Treatment No Information Progress Notes * Tyree LAFLEURDOB:1945 (79 yo M)Acc No.[id number]:06/01/2025 Progress Note Patient: Tyree WEBB Provider: Tony Fuller DPM :1945 A ge:79 Y S ex:Male Date:06/01/2025 Address:[address] [place] [address], [place] [address], [place] [id number] Pcp:Gaby Quezada MD Subjective: * Chief Complaints: * * HPI: A t Risk footcare: Pt States Last PCP Visit: D ate 0 10/06/2024 * ROS: G eneral/Constitutional: Nausea d enies. V omiting d enies. H thuy Thirst d enies. L oss appetite d enies. C hills d enies. F atigue d enies.?Fever d enies. N ight Sweats d enies. U nexplained weight loss d enies. U nexplained weight gain d enies. H EENTM: Dentures a dmits. D izziness d enies. G lasses/contacts a dmits. R etinopathy d enies. B lurred/double vision a dmits. T MJ?denies. D ischarge/drainage d enies. I mplants d enies. S ore throat d enies. D ental implants d enies. H zeb of hearing d enies. D ifficulty chewing/swallowing/speaking d enies. N ose bleeds d enies. S ore mouth d enies. ? R espiratory: On Oxygen a dmits. P neumonia/pleurisy d enies.?Bronchitis d enies. E mphysema d enies. C oughing d enies. C ough blood?denies. S hortness of breath d enies. W heezing d enies. C ardiovascular: Pacemaker d enies. M HEDIS NURSE d enies. W PW d enies. C HF d enies. H eart attack d enies. S eptal defect d enies. R apid beat d enies. C hest pain d enies. A trial Fib. d enies. M urmur/Palpitations d enies. G astrointestinal: Hemorrhoids d enies. S tomach/Abdominal pain d enies. D ark blood stool d enies. I rritable bowel d enies. C onstipation a dmits. D iarrhea d enies. H ematology: Swelling d enies. C lots d enies. V aricose Veins d enies. B ruising d enies. B leeding problem d enies. G enitourinary: Blood urine d enies. F requent/Painfu/urination/bladder control d enies. K idney stones d enies. I nfection (UTI) d enies. N ephropathy d enies. s ex trans dis (STD) d enies. P rostate d enies. M usculoskeletal: Hammertoes d enies. B unions d enies. B ack Pain d enies. M uscle Cramps/ Resting d enies. M uscle cramps / walking a dmits.?Generalized aches and pains d enies. W eakness d enies. I nteg.: Acharya d enies. S cars d enies. C orns/calluses?denies. I ngrown nails d enies. P ainful nails a dmits. O pen Sores d enies. R ashes d enies. N eurologic: Difficulty sleeping d enies. B rain disorder d enies. N umbness d enies. B alance trouble d enies. C onfusion d enies. F ainting/blackouts d enies. T ingling d enies. T remors d enies. * Medical History: * Medications: T aking amLODIPine Besylate 10 [...] Foot Deformity(M20.41,M20.42), Preulcerative Skin Lesion(s)(L85.1) Wear Daily Objective: * Vitals: Assessment: Plan: * Treatment: * Images: * The named appointment provid er may or may not be the originator of this progress note, and it is not deemed complete until electronically signed by the appointment provider. Sign off status: Pending * Provider: Tony Fuller DPM Date: 08/01/2024 Generated for Nawaf dent/Vannessa/Von on: 08/14/2024 11:03 AM EST History and Physical Notes * HPI (History of Present Illness) Category Sub-Category Detail Notes Category Not es At Risk footcare Pt States Last PCP Visit: Date: 5
[2025-06-14 09:48] VITALS: BP 200/90; PULSE 116; O2SAT 98; BMI 31.0
--- NOTE | 2025-06-14 09:48 | HO.NEPHOV_ITS ---
Vital Signs 06/14/25 09:48 Height 5 ft 7 in Weight 198 lb BMI 31.0 BP 200/90 H Blood Pressure Location Lt brachial Position Sitting Pulse 116 H Pulse Source Pulse Oximeter Pulse Oximetry (%) 98 Oxygen Delivery Method Room Air Intake Visit Reasons: 1mnth Open End Spinning Operator Required: No Accompanied by: Self / Same As Patient Allergies cortisone Adverse Reaction (Intermediate, Verified 06/14/25 10:13) Cough Medication List - Last Reconciled 06/14/25 by Matthew Lorenzana MD Advair Diskus 250-50 mcg/dose (fluticasone propion-salmeterol) 1 inh inhalation BID NS amlodipine 10 mg PO DAILY 90 days aspirin 1 tab PO DAILY 90 days blood pressure test kit-large ([facility] Blood Pressure Monitor kit) As directed blood sugar diagnostic ([employer] Ultra Test strips) Use to check blood sugar once a day blood-glucose meter ([employer] Ultra2 Meter) As directed chlorthalidone 25 mg PO DAILY 90 days cholecalciferol (vitamin D3) 25 mcg PO DAILY 90 days docusate sodium (Colace) 100 mg PO DAILY PRN dulaglutide (Trulicity) 0.75 mg (0.5 mL) subcut QWEEK 90 days gabapentin 300 mg PO BEDTIME 90 days glimepiride 4 mg PO DAILY 90 days hydralazine 50 mg PO TID 30 days lancets ([employer] Delica Lancets) Use to check blood sugars once a day levetiracetam 1,000 mg (2 x 500 mg) PO BID 30 days linagliptin (Tradjenta) 5 mg PO DAILY 90 days lisinopril 40 mg PO DAILY 90 days metformin 1,000 mg PO BID 90 days miscellaneous medical supply As directed omeprazole 20 mg PO DAILY 90 days simvastatin 40 mg PO BEDTIME 90 days [Trapeze bar As directed] [wheelchair As directed] HPI Comments Details: 79-year-old man with a history of longstanding diabetes mellitus and hypertension referred for evaluation of chronic kidney disease and proteinuria Last year in 2023 serum creatinine was 1.79. He had a urine protein creatinine ratio 4334. He is being evaluated by Urology for erectile dysfunction and was referred for further evaluation of proteinuria. All his medications were reviewed he is on lisinopril amlodipine hydralazine. In addition he is on chlorthalidone 50 mg and hydrochlorothiazide 50 mg. It is unclear if he is taking both these diuretics. 05/10/25 No specific complaints today 06/14/25 The patient is a 79 year old individual presenting for a follow-up visit for management of hypertension. The patient has a history of hypertension and reports that the blood pressure was high at this visit. The patient did not take the prescribed blood pressure medications, which include lisinopril, hydralazine, chlorthalidone, and amlodipine, on the morning of the appointment. The patient denies any trouble with urination. The patient sees multiple doctors. [facility] Medical History Seizures Microalbuminuria Post-COVID chronic dyspnea Oxygen dependent GERD (gastroesophageal reflux disease) Diabetes mellitus Lumbar degenerative disc disease Pure hypercholesterolemia Essential hypertension Surgical History S/P matrixectomy of toe History of cervical spinal surgery Family History Father No problems noted. Mother No problems noted. Social History Housing: Apartment Alcohol intake: never Patient Tobacco Use Status: Never used Tobacco e-Cigarette/Vaping Use: Never Used Second Hand Smoke Exposure: No service: No Current occupational status: retired and disabled Current occupational exposures/hazards: No Cognitive needs: No Hearing needs: No Vision needs: Yes Physical Exam Vital Signs: Last Vital Signs Pulse 116 H 06/14/25 09:48 BP 200/90 H 06/14/25 09:48 Pulse Ox 98 06/14/25 09:48 Oxygen Delivery Method Room Air 06/14/25 09:48 BMI result Body Mass Index 31.0 Comfortable Neck supple no JVD. Lungs entry equal no rales. Heart S1-S2 heard no gallop or rub. Abdomen soft nontender. Neuro alert awake oriented. No asterixis. Extremities no edema. Results Reviewed Nephrology Results: Hgb, (14.0-18.0) 12.0 g/dl L 04/12/25 WBC, (4.8-10.8) 8.7 X10*3/uL 04/12/25 Plt Count, (160-400) 228 X10*3/uL 04/12/25 Sodium, (135-145) 140 mmol/L 06/07/25 Potassium, (3.3-5.1) 3.9 mmol/L 06/07/25 Chloride, (96-108) 105 mmol/L 06/07/25 Carbon Dioxide, (22-29) 23 mmol/L 06/07/25 BUN, (9-16) 33 mg/dL H 06/07/25 Creatinine, (0.5-1.4) 2.37 mg/dL H 06/07/25 Calcium, (8.4-10.2) 9.1 mg/dL 06/07/25 Urine Protein, (Neg-Trace) 300 (3+) mg/dL H 04/12/25 Urine Creatinine 99.93 mg/dL 04/12/25 Renal US 05/08/25 Assessment & Plan Assessment & Plan (1) CKD (chronic kidney disease): Code(s): N18.9 - Chronic kidney disease, unspecified Category: Medical Plan Elderly man with chronic kidney disease with nephrotic range proteinuria in the setting of longstanding diabetes mellitus hypertension. Baseline renal function needs to be determined. About a year ago creatinine was 1.79. in January 2024 Currently at 2.3 and unchanged over 2 months Was on High dose diuretics Decreased Chlorthalidone to 25 mg daily from 50 mg renal ultrasonogram - un remarkable. Hypertension blood pressure - sub optimal Did not take any of hismeds today Discussed complaince Increase Hydralazine to 25 mg TID Proteinuria most likely due to underlying diabetic kidney disease. However non nephrotic diabetic causes should be ruled out. Work up in progress Encouraged him to bring all his medications next visit. Maintain blood pressure less than 130/80 Continue to avoid nephrotoxic agents including NSAIDs Orders: Orders Basic Metabolic Panel 8 Weeks N18.9 - Chronic kidney disease, unspecified Coding Level of Care Code Est Pt Level 4 (47822) Diagnoses CKD (chronic kidney disease) N18.9
--- OUTSIDE RECORDS SUMMARY | 2025-06-14 11:04 | XMS_ITS | Patient Health Record ---
Author Organization [facility] Address [address] [place] [address] Care Team Providers Care Group Work Program Aide Name Role Phone Pilar GASTELUM, Gaby Primary Care Provider Unavail able Nika Fuller Unavailable [phone] Tommy Eli Unavailable [phone] Allergies Allergen (clinical drug ingredient) Drug/Non Drug [...] Problem Acquired hammer toe of right foot (8173313263812 105) Other hammer toe(s) (acquired), right foot (M20.41) Active confirmed Problem Type 2 diabetes mellitus with peripheral angiopathy (040144108) Type 2 diabetes mellitus with diabetic peripheral angiopathy without gangrene (E11.51) Active confirmed Q7(A), Q8(2B), Q9(1B,2C) Problem Acquired hammer toe of left foot (9895867779857 103) Other hammer toe(s) (acquired), left foot (M20.42) Active confirmed Vital Signs Blood pressure diastolic 70 mm Hg 12/15/2024 Height 5ft 8in in 12/15/2024 Blood pressure systolic 133 mm Hg 12/15/2024 Weight 180 lbs 12/15/2024 BMI 27.37 kg/m2 12/15/2024 Procedures Procedure Date Ordered Date Performed Result Body Sit e 91154-NZESZSB NAIL, 6 OR MORE 06/21/2024 N/A 43550-XNCNCST NAIL, 6 OR MORE 09/29/2024 N/A Encounters Encounter Location Date Provider Diagnosis [address] [address] 06/21/2024 Tommy Eli Type 2 diabetes mellitus with diabetic peripheral angiopathy without gangrene E11.51 ; Tinea unguium B35.1 ; Pain in right toe(s) M79.674 and Pain in left toe(s) M79.[address] [address] 09/29/2024 Tommy Eli Controlled type 2 diabetes mellitus with diabetic polyneuropathy, without long-term current use of insulin E11.42 and Tinea unguium B35.[address] [address] 12/15/2024 Nika Fuller Type 2 diabetes mellitus with diabetic peripheral angiopathy without gangrene E11.51 ; Tinea unguium B35.1 ; Pain in right toe(s) M79.674 ; Pain in left toe(s) M79.675 ; Other hammer toe(s) (acquired), left foot M20.42 and Other hammer toe(s) (acquired), right foot M20.[address] [address] 08/01/2024 Tommy Eli [address] [address] 2024 Tommy Eli [address] [address] 06/01/2025 Nika Fuller [address] [address] 06/06/2025 Nika Fuller Assessments Encounter Date Diagnosis (ICD [...] Treatment Pending Test Test Name Order Date [id number] NAIL, 6 OR MORE 06/21/2024 [id number] NAIL, 6 OR MORE 09/29/2024 Insurance Providers Payer Name Payer Address Payer Phone Subscriber Number Group Number Insured Name Patient Relationship to Insured Coverage Start Date Coverage End Date [facility] [employer] Claims [address] [place] [id number] Tyree Lafleur Self - patient is the insured Medical (General) History Medical History History ICD Code Arthritis asthma Back,Hip,and Knee pain Broken bones Cataracts covid-19 Dementia type II diabetes High Blood Pressure Chicken pox Joint implants/screws eye injections Surgical History Surgery Date(Month/Year) bone implant 1970
== END 2025-06-14 10:26 | disposition home or self-care (01) ==
LOC: HO.HKAS 09:42
PROVIDERS: PCP Internal Medicine; Visit Provider Internal Medicine Hypertension Specialist
DX: N18.9 Chronic kidney disease, unspecified (principal)
CPT/HCPCS: 99214

== ENCOUNTER 2025-06-28 10:36 | Outpatient (REF) | payer OTHER, SELFPAY ==
--- NOTE | ~2025-06-28 | XR_ITS ---
Exam: X-ray, bilateral knees.XR KNEE 1-2 VIEWS BILATERAL TECHNIQUE: AP and lateral views lower extremity joint, bilateral knees INDICATION: M25.561 - Pain in right knee COMPARISON: None available. FINDINGS: RIGHT KNEE: Joint spaces are preserved. There are small marginal osteophytes involving the lateral joint space. Intercondylar tubercles are peaked. Physiologic volume of fluid is visible in the suprapatellar pouch. Undulating cortex is present along the posterior diaphysis of the visible portions of the fibula. LEFT KNEE: Joint spaces are preserved. Minute marginal sites are visible in the lateral compartment. Physiologic volume of fluid is present in the suprapatellar pouch. There is thickening of the posterior cortex of the proximal diaphysis of the fibula and minimally in the tibia that has the appearance of the melted dripping candle wax. XR/XR Knee Osbaldo 1or 2V IMPRESSION: Right knee: Minimal degenerative change. 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 Left knee: Subtle degenerative changes. 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 Electronically signed by: Nitin Grace MD 06/28/2025 11:30 AM EST
== END 2025-06-28 10:37 | disposition home or self-care (01) ==
LOC: HO.XRAY 10:36
PROVIDERS: PCP Internal Medicine; Visit Provider Internal Medicine
DX: M25.561 Pain in right knee (principal)
CPT/HCPCS: 73560

== ENCOUNTER → 2025-06-28 10:42 | Outpatient (BNV) | payer OTHER, SELFPAY | PROVIDERS: PCP Internal Medicine; Visit Provider Radiology Diagnostic Radiology | DX: M25.561 Pain in right knee (principal) | CPT/HCPCS: 73560 ==